=== PATIENT | male | born 1950 | race Caucasian/White ===

== ENCOUNTER → 2021-05-30 07:05 | Outpatient (CLI) | payer MEDICARE, OTHER, SELFPAY ==
[2021-05-30 18:53] LABS: SARS-CoV-2 RNA PCR Negative
== END ==
PROVIDERS: PCP Family Medicine; Visit Provider Family Medicine
DX: Z20.822 Contact with and (suspected) exposure to COVID-19 (principal); R05 Cough
CPT/HCPCS: C9803; U0003; U0005

== ENCOUNTER 2021-11-01 21:11 | Emergency (ER) | payer MEDICARE, OTHER, SELFPAY ==
[2021-11-01 21:29] VITALS: BP 170/106; PULSE 94; RESP 20; TEMP 37.2; O2SAT 94
[2021-11-01 23:41] VITALS: BP 185/99; PULSE 80; RESP 17; O2SAT 94
--- NOTE | 2021-11-01 23:50 | PC.NURSE ---
Pt states he no longer wishes to wait to be seen, states he has been here a couple hours and would be better off resting at home. Pt ambulated out in no distress w/ steady gait.
== END 2021-11-01 23:57 | disposition left against medical advice (07) ==
PROVIDERS: PCP Family Medicine
DX: Z53.21 Procedure and treatment not carried out due to patient leaving prior to being seen by health care provider (principal)
CPT/HCPCS: 99199

== ENCOUNTER → 2021-11-05 03:12 | Outpatient (CLI) | payer MEDICARE, OTHER, SELFPAY ==
[2021-11-06 14:36] LABS: SARS-CoV-2 RNA PCR Positive
== END ==
PROVIDERS: PCP Family Medicine; Visit Provider Family Medicine
DX: U07.1 COVID-19 (principal)
CPT/HCPCS: C9803; U0003; U0005

== ENCOUNTER 2022-05-27 13:55 | Emergency (ER) | payer MEDICARE, OTHER, SELFPAY ==
[2022-05-27 14:02] VITALS: BP 165/85; PULSE 61; RESP 18; TEMP 36.6; O2SAT 98
[2022-05-27 14:10] VITALS: BP 162/81
--- NOTE | 2022-05-27 14:22 | PC.NURSE ---
Pt no longer reports dizziness, has subsided since Wednesday.
[2022-05-27 14:32] VITALS: BP 158/88
--- NOTE | 2022-05-27 14:35 | PC.NURSE ---
Pt only wanted his blood pressure checked. otherwise well feeling, no complaints. Pt chose to leave prior to being evaluated by nurse practitioner.
--- NOTE | 2022-05-29 14:28 | ED.RECABL ---
HPI - Recheck/Abnormal Lab/Rx General Chief Complaint: Recheck/Abnormal Lab/Rx Stated Complaint: Blood Pressure Problem History of Present Illness HPI narrative: this pt left before seeing provider. he came for a BP check and was not aware he needed to see a provider. he left after speaking with nurse. Related Data Home Medications Medication Instructions Recorded Confirmed omeprazole 20 mg capsule,delayed See Rx Instructions .Route .COMPLEX 08/13/21 05/27/22 release Allergies Allergy/AdvReac Type Severity Reaction Status Date / Time codeine Allergy Unknown Unknown Verified 05/27/22 14:18 Sulfa (Sulfonamide Allergy Unknown Unknown Verified 05/27/22 14:18 Antibiotics) sulfamethizole Allergy Unknown Pt does Verified 05/27/22 14:18 not remember reaction Review of Systems Review of Systems: ROS not completed due to pt not seeing provider. [facility] Past Medical History Medical History (Updated 05/28/22 @ 00:00 by Dawood Ramirez) COPD (chronic obstructive pulmonary disease) Diabetes Hypertension Osteoarthritis of right knee Sleep apnea Surgical History Surgical History H/O knee surgery (~2002) H/O total cystectomy History of ankle surgery (~1979) History of ear surgery Hx of tonsillectomy Hx of total knee replacement (~2000) Family History Family History Mother Diabetes mellitus Family history of coronary artery disease Family history of malignant neoplasm of breast in first degree relative Family history of congestive heart failure Father Family history of lung cancer, Onset Age: 64 Social History Social History Smoking end date: 11/01/87 Alcohol intake: never Comments At time of signature, agree with nursing past medical, surgical, social and family history. There is no relevant family history pertinent to the presenting complaint. Exam Narrative: Exam not completed due to pt not seeing provider. Course Course Level of Care: Express Care Visit Vital Signs Vital signs: Vital Signs Temperature 36.6 C 05/27/22 14:02 Pulse Rate 61 05/27/22 14:02 Respiratory Rate 18 05/27/22 14:02 Blood Pressure 165/85 H 05/27/22 14:02 Pulse Oximetry 98 05/27/22 14:02 Oxygen Delivery Room Air 05/27/22 14:02 Temperature 36.6 C 05/27/22 14:02 Pulse Rate 61 05/27/22 14:02 Respiratory Rate 18 05/27/22 14:02 Blood Pressure 158/88 H 05/27/22 14:32 Pulse Oximetry 98 05/27/22 14:02 Oxygen Delivery Room Air 05/27/22 14:02 Reviewed MDM - Recheck/Abnormal Lab/Rx MDM Narrative Medical decision making narrative: pt left prior to seeing provider. he was here just for BP check. has appt with PCP in 2 days. Discharge Plan Discharge Clinical Impression: Hypertension, Well adult health check Patient Disposition: Left Without Being Seen Prescriptions: No Action omeprazole 20 mg capsule,delayed release(DR/EC) See Rx Instructions .ROUTE .COMPLEX Dose Instruction: TAKE ONE CAPSULE BY MOUTH TWICE A DAY Rx Instructions: TAKE ONE CAPSULE BY MOUTH ONCE A DAY Anoro Ellipta 62.5-25 mcg/actuation blister with device 1 inh inhalation DAILY Qty: 14 0RF irbesartan 300 mg tablet See Rx Instructions .ROUTE .COMPLEX Qty: 90 3RF Dose Instruction: TAKE ONE TABLET BY MOUTH ONCE DAILY Rx Instructions: TAKE ONE TABLET BY MOUTH ONCE DAILY trazodone 50 mg tablet See Rx Instructions .ROUTE .COMPLEX Qty: 270 0RF Dose Instruction: TAKE 3 TABLETS BY MOUTH ONCE DAILY Rx Instructions: TAKE 3 TABLETS BY MOUTH ONCE DAILY atorvastatin 20 mg tablet See Rx Instructions .ROUTE .COMPLEX Qty: 90 0RF Dose Instruction: TAKE 1 TABLET BY MOUTH EVERY DAY Rx Instructions: TAKE 1 TABLET BY MOUTH EVERY DAY m
== END 2022-05-27 14:35 | disposition left against medical advice (07) ==
PROVIDERS: Emergency Provider Nurse Practitioner Family
DX: Z53.21 Procedure and treatment not carried out due to patient leaving prior to being seen by health care provider (principal)
CPT/HCPCS: 99199

== ENCOUNTER 2022-07-01 15:27 | Emergency (ER) | payer MEDICARE, OTHER, SELFPAY ==
[2022-07-01 15:34] VITALS: BP 153/88; PULSE 66; RESP 18; TEMP 36.3; O2SAT 99
[2022-07-01 15:49] VITALS: BP 153/88; PULSE 66; RESP 18; TEMP 36.3; O2SAT 99
--- NOTE | 2022-07-01 15:59 | ED.HA ---
HPI - Headache General Chief Complaint: Headache Stated Complaint: headache (had numbness on face) Time Seen by Provider: 07/01/22 16:00 Source: patient and RN notes reviewed Mode of arrival: ambulatory Limitations: no limitations History of Present Illness HPI Narrative: 71-year-old male presented with history of DM, HTN, COPD for evaluation after an episode of neuro changes that occurred at 1330 today. Endorses vision changes that he described as eyes squiggly which has happened in the past, then upon standing he felt dizzy with a sudden onset of intense headache like 'a vice' and numbness to the left face and tongue. The episode lasted 5 minutes per pt. States he was able to walk and use his arms to call his daughter. Symptoms have resolved upon arrival. Denies chest pain, palpitations, shortness of breath, vomiting, fevers or chills. Related Data Allergies Allergy/AdvReac Type Severity Reaction Status Date / Time codeine Allergy Unknown Unknown Verified 07/01/22 15:37 Sulfa (Sulfonamide Allergy Unknown Unknown Verified 07/01/22 15:37 Antibiotics) sulfamethizole Allergy Unknown Pt does Verified 07/01/22 15:37 not remember reaction Review of Systems Review of Systems: CONSTITUTIONAL: Denies body aches, fever, chills, or sweats. EYES: Denies eye redness, or discharge. ENT: Denies rhinorrhea, congestion, sore throat, or otalgia. CARDIOVASCULAR: Denies chest pain, palpitations, or edema. RESPIRATORY: Denies cough or dyspnea. GASTROINTESTINAL: Denies abdominal pain, nausea, vomiting, or diarrhea. MUSCULOSKELETAL: Denies back pain, joint pain, or myalgia. NEUROLOGIC: Endorses headache, denies numbness, tingling, or weakness All systems reviewed & are unremarkable except as noted in HPI and below PMFSH Past Medical History Medical History (Updated 07/01/22 @ 17:53 by Jaspal Hickman III, DO) COPD (chronic obstructive pulmonary disease) Diabetes Hypertension Osteoarthritis of right knee Sleep apnea Surgical History Surgical History H/O knee surgery (~2002) H/O total cystectomy History of ankle surgery (~1979) History of ear surgery Hx of tonsillectomy Hx of total knee replacement (~2000) Family History Family History Mother Diabetes mellitus Family history of coronary artery disease Family history of malignant neoplasm of breast in first degree relative Family history of congestive heart failure Father Family history of lung cancer, Onset Age: 64 Social History Social History Smoking end date: 11/01/87 Alcohol intake: never Comments At time of signature, I have reviewed and agree with nursing past medical, surgical, social and family history unless otherwise noted. Please see nursing chart for further information. There is no relevant family history pertinent to the presenting complaint Exam Narrative: GENERAL: Well-appearing, well-nourished HEAD: Normocephalic, atraumatic. EYES: PERRLA, EOMI. CHEST: Clear to auscultation. HEART: Regular rate and rhythm. No murmur appreciated. SKIN: Warm, dry, no rash. Capillary refill normal. Normal skin turgor. NEURO:No focal deficits. Alert and oriented x3. EOMs intact without nystagmus. No facial droop/asymmetry noted bilaterally. Grimace intact. Intact sensation in face. Hearing intact bilaterally. Shoulder shrug intact. Strength 5/5 bilateral upper extremities. Ambulatory exam with a normal based, steady gait. PSYCH: Normal affect. Course Course Emergency Course: Patient is aware of diagnosis, understands and agrees to treatment plan. Portions of this record may have been created with voice recognition software Level of Care: Express Care Visit Vital Signs Vital signs: Vital Signs Temperature 97.3 F L 07/01/22 15:34 Pulse Rate
== END 2022-07-01 16:18 | disposition short-term general hospital (02) ==
PROVIDERS: Emergency Provider Nurse Practitioner Family; PCP Emergency Medicine
DX: R51.9 Headache, unspecified (principal); Z87.891 Personal history of nicotine dependence; J44.9 Chronic obstructive pulmonary disease, unspecified; E11.9 Type 2 diabetes mellitus without complications; I10 Essential (primary) hypertension; G47.30 Sleep apnea, unspecified; M17.11 Unilateral primary osteoarthritis, right knee
CPT/HCPCS: 99213; G0463

== ENCOUNTER 2022-07-01 16:46 | Emergency (ER) | payer MEDICARE, OTHER, SELFPAY ==
--- NOTE | ~2022-07-01 | CT_ITS ---
EXAMINATION: CT brain wo con DATE: 07/01/2022 17:11 INDICATION: Episode of facial numbness and blurred vision TECHNIQUE: Computed tomography (CT) of the head was performed without intravenous contrast. Sagittal and coronal reconstructions were performed. The mA was adjusted according to patient size. Iterative reconstruction technique was employed. The dose-length product was 605.33 mGy-cm. COMPARISON: None FINDINGS: No acute intracranial hemorrhage, acute infarction or abnormal extra axial fluid collection. Ventricl es are normal and symmetric. No mass/mass effect. Postoperative change of prior right mastoidectomy. The orbits and left mastoid air cells are normal. Mild mucosal thickening the bilateral ethmoid sinus es. IMPRESSION: 1. No acute intracranial process. Reviewed, dictated and finalized at location A.
--- NOTE | ~2022-07-01 | XR_ITS ---
XR chest 1V portable DATE: 07/01/2022 17:06 INDICATION: Episode of facial numbness, blurred vision TECHNIQUE: Portable AP chest on 07/01/2022 at 1703 hours COMPARISON: 11/19/2018 CT chest high resolution scan 08/16/2018 PA and lateral chest FINDINGS: Prominent chronic bulla is noted in the superolateral right lung. Mild chronic interstitial lung changes. Chronic elevation right diaphragm. Cardiac megaly. Aortic unfolding. No pulmonary consolidation, pleural effusion or pulmonary vascular congestion or pneumothorax is dete cted. Osteopenia. Degenerative spurring and mild scoliosis of the thoracic spine. IMPRESSION: No acute finding or significant change since 08/16/2018 Reviewed, dictated and finalized at location B.
[2022-07-01 16:48] VITALS: BP 176/89; PULSE 51; RESP 18; TEMP 36.4; O2SAT 96
--- NOTE | 2022-07-01 16:52 | ECG_ITS ---
Measurements Intervals [place] Rate: 52 P: 29 IN: 189 QRS: -14 QRSD: 113 T: 38 QT: 461 QTc: 430 Interpretive Statements SINUS BRADYCARDIA MODERATE INTRAVENTRICULAR CONDUCTION DELAY [110+ ms QRS DURATION] VOLTAGE CRITERIA FOR LVH [MEETS CRITERIA IN ONE OF: R(aVL), S(V1), R(V5), R(V5/V6)+S(V1)] NONSPECIFIC T-WAVE ABNORMALITY NO PREVIOUS ECG AVAILABLE FOR COMPARISON Electronically Signed On 07-01-2022 20:03:12 CDT by Brielle Babin M.D.
--- NOTE | 2022-07-01 17:45 | ED.NEUROSD ---
HPI - Neuro Symptoms/Deficit General Chief Complaint: Neuro Symptoms/Deficit Stated Complaint: numbness left side of face Time Seen by Provider: 07/01/22 17:33 History of Present Illness HPI Narrative: Pt had some visula floaters in left eye earlier this afternoon, then patient developed some numbness to the left side of his face and tongue that lasted about five minutes and resolved. Pt states a bit later he developed a dull GUAN. Pt has no history of GUAN but does admit to being under a lot of stress lately. Pt says he feels pretty good right now. Related Data Allergies Allergy/AdvReac Type Severity Reaction Status Date / Time codeine Allergy Unknown Unknown Verified 07/01/22 15:37 Sulfa (Sulfonamide Allergy Unknown Unknown Verified 07/01/22 15:37 Antibiotics) sulfamethizole Allergy Unknown Pt does Verified 07/01/22 15:37 not remember reaction Review of Systems Review of Systems: All systems reviewed & are unremarkable except as noted in HPI and below PMFSH Past Medical History Medical History (Updated 07/01/22 @ 17:53 by Jaspal Hickman III, DO) COPD (chronic obstructive pulmonary disease) Diabetes Hypertension Osteoarthritis of right knee Sleep apnea Surgical History Surgical History H/O knee surgery (~2002) H/O total cystectomy History of ankle surgery (~1979) History of ear surgery Hx of tonsillectomy Hx of total knee replacement (~2000) Family History Family History Mother Diabetes mellitus Family history of coronary artery disease Family history of malignant neoplasm of breast in first degree relative Family history of congestive heart failure Father Family history of lung cancer, Onset Age: 64 Social History Social History Smoking end date: 11/01/87 Alcohol intake: never Exam Const: General: healthy appearing and no acute distress Nutritional Appearance: well nourished Orientation/consciousness: patient oriented x3 Limitations: no limitations HENMT: Head: normal to inspection Eyes: Conjunctivae: conjunctivae normal Pupils: Equal, round and reactive pupils present EOM: EOMs intact bilaterally Direct Ophthalmoscopy: no photophobia Neck: Neck: normal visual inspection Resp: Effort & Inspection: normal respiratory effort Auscultation: clear to auscultation bilaterally Cardio: Rate: regular rate Rhythm: regular rhythm GI: GI Palp: Yes Soft to palpation Auscultation: normal bowel sounds Skin: General skin exam: normal color Rashes: no rashes Neuro: General: patient oriented x3 Cranial nerves: Yes Nystagmus not present Speech: normal speech Extrem: General: normal to inspection and no clubbing, cyanosis or edema Psych: Mental Status: mental status grossly normal Affect: normal affect Attitude: cooperative Course Vital Signs Vital signs: Vital Signs Temperature 97.6 F 07/01/22 16:48 Pulse Rate 51 L 07/01/22 16:48 Respiratory Rate 18 07/01/22 16:48 Blood Pressure 176/89 H 07/01/22 16:48 Pulse Oximetry 96 07/01/22 16:48 Oxygen Delivery Room Air 07/01/22 16:48 Temperature 97.6 F 07/01/22 16:48 Pulse Rate 52 L 07/01/22 18:00 Respiratory Rate 16 07/01/22 18:00 Blood Pressure 142/78 H 07/01/22 18:00 Pulse Oximetry 96 07/01/22 18:00 Oxygen Delivery Room Air 07/01/22 16:48 MDM - Neuro Symptoms/Deficit ECG Data EKG #1: ECG completion date: 07/01/22 ECG completion time: 17:52 Interpretation: lvh EKG Interpretation: bradycardia (rate 52), sinus rhythm and non-specific ST changes Discharge Plan Discharge Clinical Impression: Migraine headache with aura Patient Disposition: Home, Self-Care Condition: Improved Instructions: Antibiotic Form, Migraine Headache (ED) Prescriptions: No Actio
[2022-07-01 18:00] VITALS: BP 142/78; PULSE 52; RESP 16; O2SAT 96
== END 2022-07-01 18:05 | disposition home or self-care (01) ==
LOC: ANHED 17:58
PROVIDERS: Emergency Provider Emergency Medicine; PCP Emergency Medicine
DX: G43.109 Migraine with aura, not intractable, without status migrainosus (principal); J44.9 Chronic obstructive pulmonary disease, unspecified; E11.9 Type 2 diabetes mellitus without complications; I10 Essential (primary) hypertension; M17.11 Unilateral primary osteoarthritis, right knee; G47.30 Sleep apnea, unspecified; Z79.84 Long term (current) use of oral hypoglycemic drugs; R00.1 Bradycardia, unspecified; I45.9 Conduction disorder, unspecified; R94.31 Abnormal electrocardiogram [ECG] [EKG]; Z96.659 Presence of unspecified artificial knee joint
CPT/HCPCS: 70450; 71045; 93005; 99284

== ENCOUNTER 2022-09-08 01:09 | Day surgery (SDC) | payer MEDICARE, OTHER, SELFPAY ==
[2022-08-31 11:19] VITALS: BMI 36.5
[2022-09-08 07:30] VITALS: BP 186/100; PULSE 67; RESP 20; TEMP 36.2; O2SAT 97; BMI 35.5
[2022-09-08] MEDS: LACTATED RINGERS 1,000 ML 150 ML IV CONT (07:44)
[2022-09-08 07:53] LABS: Glucose Point of Care 123 mg/dl (65-105)
--- NOTE | 2022-09-08 07:55 | PM.HPGS ---
History of Present Illness History of Present Illness Consent: Risks, benefits, and alternatives have been discussed and questions answered. Patient agrees to proceed with procedure. Chief complaint: neoplasm screening Narrative: Tono Coreas is a 71 year old male Presents for screening colonoscopy. Patient's current weight appetite and bowel movements are normal. Patient denies abdominal pain. He has had no bleeding. Family history is noncontributory. Patient's last colonoscopy 2007 was unremarkable. Patient presents today for screening exam. Review of Systems Review of Systems: Review of systems noncontributory. [facility] Past Medical History Medical History (Updated 07/21/22 @ 14:35 by Bennie Ramos MD) COPD (chronic obstructive pulmonary disease) Diabetes Hypertension Osteoarthritis of right knee Sleep apnea Surgical History Surgical History H/O knee surgery (~2002) H/O total cystectomy History of ankle surgery (~1979) History of ear surgery Hx of tonsillectomy Hx of total knee replacement (~2000) Family History Family History Mother Diabetes mellitus Family history of coronary artery disease Family history of malignant neoplasm of breast in first degree relative Family history of congestive heart failure Father Family history of lung cancer, Onset Age: 64 Social History Social History (Updated 07/21/22 @ 13:07 by Kaela Garcia) Social History: Caffeine-soda Smoking packs per day: 3 Smoking cigarettes per day: 60.0 Years smoked: 20 Smoking pack-years: 60.00 Smoking status: Former smoker Tobacco type: cigarettes Smoking end date: 11/01/87 Additional smoking assessment comments: DID NOT SMOKE 3 PKS THE ENTIRE TIME Alcohol intake: never Substance use: never Substance use type: does not use Living arrangements: with family Spiritual care concerns: No Meds Home Medications and Allergies Home Medications Medication Instructions Recorded Confirmed Type omeprazole 40 mg capsule,delayed 40 mg PO DAILY #90 caps 06/04/22 08/31/22 Rx release spironolactone 25 mg tablet 25 mg PO DAILY 07/21/22 08/31/22 History tamsulosin 0.4 mg capsule 0.4 mg PO QHS #30 caps 07/21/22 08/31/22 Rx sodium,potassium,mag sulfates 17.5 See Rx Instructions PO .COMPLEX 07/28/22 08/31/22 Rx gram-3.13 gram-1.6 gram oral soln #354 mL (Suprep Bowel Prep Kit) aspirin 81 mg tablet 81 mg PO DAILY 08/31/22 08/31/22 History atorvastatin 20 mg tablet 20 mg PO DAILY 08/31/22 08/31/22 History irbesartan 300 mg tablet 300 mg PO DAILY 08/31/22 08/31/22 History metformin 500 mg tablet,extended 500 mg PO DAILY 08/31/22 08/31/22 History release 24 hr metoprolol succinate 25 mg 25 mg PO DAILY 08/31/22 08/31/22 History tablet,extended release 24 hr trazodone 50 mg tablet 150 mg PO HS 08/31/22 08/31/22 History umeclidinium 62.5 mcg-vilanterol 1 inh inhalation DAILY PRN 08/31/22 08/31/22 History 25 mcg/actuation powdr for Shortness Of Breath Or Wheezing inhalation (Anoro Ellipta) Allergies Allergy/AdvReac Type Severity Reaction Status Date / Time Sulfa (Sulfonamide Allergy Unknown Unknown Verified 09/08/22 07:29 Antibiotics) codeine AdvReac Intermediate Gastrointestinal Verified 09/08/22 07:29 Upset Vital Signs Vital Signs - 24 hr 09/08/22 07:30 Temperature 97.2 F L Pulse Rate 67 Respiratory Rate 20 Blood Pressure 186/100 H Pulse Oximetry 97 Oxygen Delivery Room Air Exam Narrative: Physical exam reveals patient to be alert. Vital signs stable. HEENT exam is unremarkable. Patient is anicteric. Lungs are clear to auscultation and percussion. Heart is without murmur or extra sounds. Abdomen bowel sounds are present soft nontender with no organomegaly. Digital external rectal exam is normal. Assessment and Plan Assessment and plan
--- NOTE | 2022-09-08 08:16 | WPDANESEPPF ---
Anes - Initial Pre Proc Eval Procedure: Operation Date: 09/08/22 08:30 Proposed Procedures p Screening Colonoscopy - Hiro Garcia MD Date/Time: 09/08/22 08:16 Surgeon: Hiro Garcia MD Pre Op Diagnosis: neoplasm screening Patient Data Age: 71 Gender: M Height: 1.73 m Weight: 106 kg Last Vital Signs Temp 36.2 C L 09/08/22 07:30 Pulse 67 09/08/22 07:30 Resp 20 09/08/22 07:30 BP 186/100 H 09/08/22 07:30 Pulse Ox 97 09/08/22 07:30 O2 Del Method Room Air 09/08/22 07:30 Allergies Allergy/AdvReac Type Severity Reaction Status Date / Time Sulfa (Sulfonamide Allergy Unknown Unknown Verified 09/08/22 07:29 Antibiotics) codeine AdvReac Intermediate Gastrointestinal Verified 09/08/22 07:29 Upset Home Medications Medication Instructions Recorded Confirmed Type omeprazole 40 mg capsule,delayed 40 mg PO DAILY #90 caps 06/04/22 08/31/22 Rx release spironolactone 25 mg tablet 25 mg PO DAILY 07/21/22 08/31/22 History tamsulosin 0.4 mg capsule 0.4 mg PO QHS #30 caps 07/21/22 08/31/22 Rx sodium,potassium,mag sulfates 17.5 See Rx Instructions PO .COMPLEX 07/28/22 08/31/22 Rx gram-3.13 gram-1.6 gram oral soln #354 mL (Suprep Bowel Prep Kit) aspirin 81 mg tablet 81 mg PO DAILY 08/31/22 08/31/22 History atorvastatin 20 mg tablet 20 mg PO DAILY 08/31/22 08/31/22 History irbesartan 300 mg tablet 300 mg PO DAILY 08/31/22 08/31/22 History metformin 500 mg tablet,extended 500 mg PO DAILY 08/31/22 08/31/22 History release 24 hr metoprolol succinate 25 mg 25 mg PO DAILY 08/31/22 08/31/22 History tablet,extended release 24 hr trazodone 50 mg tablet 150 mg PO HS 08/31/22 08/31/22 History umeclidinium 62.5 mcg-vilanterol 1 inh inhalation DAILY PRN 10/31/22 10/31/22 History 25 mcg/actuation powdr for Shortness Of Breath Or Wheezing inhalation (Anoro Ellipta) Laboratory Tests 09/08/22 07:41 POC Capillary Glucose 123 mg/dl H mg/dl (65-105) Patient hx anesthesia problems: other (early awakening) Family hx anesthesia problems: none Results Review: All pre-operative results and documents have been reviewed as part of the pre-operative evaluation. [facility] Past Medical History Medical History COPD (chronic obstructive pulmonary disease) Diabetes Hypertension Osteoarthritis of right knee Sleep apnea Surgical History Surgical History H/O knee surgery (~2002) H/O total cystectomy History of ankle surgery (~1979) History of ear surgery Hx of tonsillectomy Hx of total knee replacement (~2000) Family History Family History Mother Diabetes mellitus Family history of coronary artery disease Family history of malignant neoplasm of breast in first degree relative Family history of congestive heart failure Father Family history of lung cancer, Onset Age: 64 Social History Social History Social History: Caffeine-soda Smoking packs per day: 3 Smoking cigarettes per day: 60.0 Years smoked: 20 Smoking pack-years: 60.00 Smoking status: Former smoker Tobacco type: cigarettes Smoking end date: 11/01/87 Additional smoking assessment comments: DID NOT SMOKE 3 PKS THE ENTIRE TIME Alcohol intake: never Substance use: never Substance use type: does not use Living arrangements: with family Spiritual care concerns: No Anes - Eval Final PreProcedure Day of Procedure 09/08/22 08:16 Patient weight: obese Heart: regular rate and rhythm Lungs: decreased breath sounds Airway: Mallampati scale class II Neurological: alert and oriented Last oral intake: >/= 8 hours ASA classification: III Emergent: no Anesthetic plan: proceed Anesthesia type and monitoring: general GIVS and standard monitoring
[2022-09-08] MEDS: SIMETHICONE ORAL SUSPENSION 20 MG/0.3 ML 30 ML BOTTLE 0.6 ML IRRIGATION (08:39)
[2022-09-08 08:49] VITALS: BP 129/75; PULSE 59; RESP 19; O2SAT 99
[2022-09-08 08:59] VITALS: BP 153/78; PULSE 61; RESP 22; O2SAT 97
[2022-09-08 09:09] VITALS: BP 167/92; PULSE 55; RESP 26; O2SAT 99
== END 2022-09-08 09:19 | disposition home or self-care (01) ==
PROVIDERS: PCP Emergency Medicine; Visit Provider Internal Medicine Gastroenterology
PROC: 0DJD8ZZ Inspection of Lower Intestinal Tract, Via Natural or Artificial Opening Endoscopic (ICD-10-PCS; CPT 45378; principal; 2022-09-08 08:30)
DX: Z12.11 Encounter for screening for malignant neoplasm of colon (principal); D12.2 Benign neoplasm of ascending colon; K64.8 Other hemorrhoids; K57.30 Diverticulosis of large intestine without perforation or abscess without bleeding; J44.9 Chronic obstructive pulmonary disease, unspecified; E11.9 Type 2 diabetes mellitus without complications; I10 Essential (primary) hypertension; G47.30 Sleep apnea, unspecified; Z87.891 Personal history of nicotine dependence; E66.9 Obesity, unspecified; Z68.35 Body mass index [BMI] 35.0-35.9, adult; Z79.82 Long term (current) use of aspirin; Z79.84 Long term (current) use of oral hypoglycemic drugs; Z79.51 Long term (current) use of inhaled steroids
CPT/HCPCS: 45385; 82948; 88305; J2704; J7120

== ENCOUNTER → 2022-10-01 10:45 | Outpatient (CLI) | payer MEDICARE, OTHER, SELFPAY ==
--- NOTE | ~2022-10-01 | XR_ITS ---
XR chest 2V DATE: 10/01/2022 10:55 INDICATION: Cough TECHNIQUE: 2 views COMPARISON: 07/01/2022 portable AP chest FINDINGS: There is prominent elevation of the right leaf of the diaphragm anteriorly likely due to ev entration. Patchy mild infiltrate or atelectasis is suggested in the right mid and lower lung zones. The left gisel ng appears essentially clear. No pleural effusion. Pulmonary vascularity is within normal limits. No pneumothorax. Diffuse osteopenia. Thoracic dextroscoliosis and degenerative spurring. IMPRESSION: Cardiomegaly Mild patchy infiltrate in the right mid and lower lung zones Osteopenia Reviewed, dictated and finalized at location B. L DRAWER
== END ==
PROVIDERS: PCP Emergency Medicine; Visit Provider Emergency Medicine
DX: R05.9 Cough, unspecified (principal); I51.7 Cardiomegaly; R91.8 Other nonspecific abnormal finding of lung field; M85.88 Other specified disorders of bone density and structure, other site
CPT/HCPCS: 71046

== ENCOUNTER 2022-10-05 13:52 | Outpatient (CLI) | payer MEDICARE, OTHER, SELFPAY ==
--- NOTE | ~2022-10-05 | CT_ITS ---
EXAMINATION: CT diagnostic chest wo con DATE: 10/05/2022 14:11 INDICATION: Chronic cough. Fluid on lungs 5 days ago TECHNIQUE: Computed tomography (CT) of the chest was performed without intravenous contrast. Automate d exposure control and iterative reconstruction technique were employed. Exam dose: 401.54 mGy-cm to brian exam DLP. COMPARISON: 10/01/2022 2 view chest 11/09/2018 CT chest high resolution scan FINDINGS: There are numerous mediastinal lymph nodes which are mildly increased in size compared to ; for example a left superior mediastinal lymph node currently measures 7.9 x 10.9 mm, compare d to 6.4 x 9.3 mm on 11/19/2018. A lower right paratracheal lymph node currently measures 12.4 x 18 mm compared to 11.2 x 18.9 mm on 11/09/2018. There are some calcified bilateral hilar and subcarinal nodes. Stable prominent pneumatocele in the lateral right apical area and stable bilateral chronic periphera l interlobular septal soft tissue thickening and mild honeycombing or bronchiectasis. Cardiomegaly. Coronary artery calcifications. No thoracic aortic aneurysm. There is aortic calcificat ion. No pericardial or pleural effusion. Normal morphology of the adrenal glands. Prominent degenerative disc disease of the lower cervical spine. Prominent degenerative spurring of t he thoracic and upper lumbar spine. No suspicious osteolytic or osteoblastic lesions are noted. IMPRESSION: Chronic interstitial fibrotic changes involving primarily the peripheral lungs, with chr onic stable bilateral right upper lobe prominent pneumatocele Persistent scattered mediastinal lymph nodes, minimally increased in prominence since 11/09/2018 Cardiomegaly Reviewed, dictated and finalized at Location A. Reviewed, dictated and finalized at location B. 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
== END 2022-10-05 13:53 | disposition home or self-care (01) ==
PROVIDERS: PCP Emergency Medicine; Visit Provider Emergency Medicine
DX: J84.9 Interstitial pulmonary disease, unspecified (principal); J84.10 Pulmonary fibrosis, unspecified; J44.9 Chronic obstructive pulmonary disease, unspecified; I51.7 Cardiomegaly
CPT/HCPCS: 71250

== ENCOUNTER 2022-11-17 11:58 | Emergency (ER) | payer MEDICARE, OTHER, SELFPAY ==
--- NOTE | ~2022-11-17 | CT_ITS ---
EXAMINATION: CT chest abdomen pelvis wo con DATE: 11/17/2022 12:50 INDICATION: Sided rib pain and right upper quadrant tenderness post fall TECHNIQUE: Computed tomography (CT) of the chest, abdomen, and pelvis was performed without intraveno us contrast. Automated exposure control and iterative reconstruction technique were employed. The dos e-length product was 1715.28 mGy-cm. COMPARISON: Chest CT dated 10/05/2022 and 11/09/2018 FINDINGS: CHEST CT: Mild emphysema with prominent bulla along the anterolateral right upper lobe. Is also unchanged mild irregular septal line thickening with subpleural honeycombing with peripheral and lower lung predomin ance consistent with usual interstitial pneumonia (UIP) pattern chronic interstitial lung disease. A few bilateral small calcified pulmonary nodules along with calcified left hilar and mediastinal lymph nodes consistent with old granulomatous disease. 6 mm likely benign noncalcified nodule possibly an intrafissural lymph node along the right minor fissure which is unchanged since 2019. No pneumonia o r pulmonary edema. Tiny right pleural effusion. Mild cardiomegaly. Atherosclerotic coronary artery ca lcific lesion. No pericardial effusion. Chronic mild likely reactive mediastinal lymphadenopathy with out significant interval change since 11/09/2018. Mild thoracic spondylosis. Chronic T7 compression fra cture. No acute osseous abnormality. ABDOMEN/PELVIS CT: Liver, gallbladder, pancreas, bilateral adrenal glands and kidneys are normal. A few splenic calcific lesions consistent with old granulomatous disease. There is mild to moderate colonic diverticulosis with a sigmoid predominance. There is no adjacent inflammatory change to suggest diverticulitis. Smal l bowel and appendix are normal. Small fat-containing umbilical hernia. Bladder is normal. Prostatome gela. Minimal ascites in the deep pelvis. No abscess or free intraperitoneal gas. No pathologically e nlarged abdominal or pelvic lymphadenopathy. Mild lumbar spondylosis. Mild subcutaneous edema potenti ally related to contusion along the lateral right abdominal and lower thoracic wall. IMPRESSION: 1. Mild subcutaneous edema along the right lateral abdominal and inferior chest wall likely postsurgi daphne contusion. No fracture or acute intrathoracic, abdominal or pelvic process. 2. Stable appearance of emphysema and UIP pattern chronic interstitial lung disease. 3. Mild cardiomegaly. 4. Stable appearance of chronic mild mediastinal lymphadenopathy which is likely reactive. 5. Diverticulosis. 6. Prostatomegaly. Reviewed, dictated and finalized at location A. ER EXPERT IMPRESSION: 1. Mild subcutaneous edema along the right lateral abdominal and inferior chest wall likely postsurgical contusion. No fracture or acute intrathoracic, abdomi nal or pelvic process. 2. Stable appearance of emphysema and UIP pattern chronic interstitial lung dis ease. 3. Mild cardiomegaly. 4. Stable appearance of chronic mild mediastinal lymphadenopathy which is likel y reactive. 5. Diverticulosis. 6. Prostatomegaly.
[2022-11-17 12:10] VITALS: BP 155/95; PULSE 86; RESP 20; TEMP 36.2; O2SAT 97
--- NOTE | 2022-11-17 12:38 | ED.FALL ---
HPI - Fall General Chief Complaint: Fall Stated Complaint: fall-right rib pain/ back pain Time Seen by Provider: 11/17/22 12:19 History of Present Illness HPI Narrative: Patient is a 72-year-old male with a history of hypertension presenting with chest and abdominal pain. Patient states that he tripped while walking down an embankment approximately 5 to 6 days ago. States that he landed on his right side and tumbled down the hill. Did not strike his head or lose consciousness. States he was able to get up and walk back up the embankment following the fall. Since that time he has had persistent right lower chest pain and right upper quadrant pain. States that the pain was so severe last night that he was unable to sleep in bed. States that if he sits in certain positions the pain goes away. Reports chronic shortness of breath and cough. Denies headache, numbness or weakness, vomiting, neck pain, back pain. Related Data Home Medications Medication Instructions Recorded Confirmed aspirin 81 mg tablet 81 mg PO DAILY 08/31/22 08/31/22 atorvastatin 20 mg tablet 20 mg PO DAILY 08/31/22 08/31/22 irbesartan 300 mg tablet 300 mg PO DAILY 08/31/22 08/31/22 Allergies Allergy/AdvReac Type Severity Reaction Status Date / Time Sulfa (Sulfonamide Allergy Unknown Unknown Verified 11/17/22 12:17 Antibiotics) codeine AdvReac Intermediate Gastrointestinal Verified 11/17/22 12:17 Upset Review of Systems Review of Systems: All systems reviewed & are unremarkable except as noted in HPI and below PMFSH Past Medical History Medical History (Updated 11/17/22 @ 13:30 by Daylin Urbina MD) COPD (chronic obstructive pulmonary disease) Diabetes Hypertension Osteoarthritis of right knee Sleep apnea Surgical History Surgical History H/O knee surgery (~2002) H/O total cystectomy History of ankle surgery (~1979) History of ear surgery Hx of tonsillectomy Hx of total knee replacement (~2000) Family History Family History Mother Diabetes mellitus Family history of coronary artery disease Family history of malignant neoplasm of breast in first degree relative Family history of congestive heart failure Father Family history of lung cancer, Onset Age: 64 Social History Social History Social History: Caffeine-soda Smoking packs per day: 3 Smoking cigarettes per day: 60.0 Years smoked: 20 Smoking pack-years: 60.00 Smoking status: Former smoker Tobacco type: cigarettes Smoking end date: 11/01/87 Additional smoking assessment comments: DID NOT SMOKE 3 PKS THE ENTIRE TIME Alcohol intake: never Substance use: never Substance use type: does not use Lack of Transportation: No Lack of Food: Never True Current Housing: I Have Housing Concerned About Future Housing: No Difficulty Paying Gas/Electric Bills: No Difficulty Paying for Meds: No Currently Unemployed: No Education: Bachelor's Degree Difficulty w/ Childcare or Family Care: No Spiritual care concerns: No Exam Narrative: GENERAL: Well-appearing, well-nourished, and in no acute distress. HEAD: Normocephalic, atraumatic. EYES: PERRLA and EOMI. ENT: Nares clear, no rhinorrhea or epistaxis. Mucous membranes moist. NECK: Supple. CHEST: Clear to auscultation. No respiratory distress. Focal tenderness over anterior lower right ribs HEART: Regular rate and rhythm. No murmur heard. Normal peripheral pulses. ABDOMEN: Soft, Tender in epigastrium/RUQ, nondistended EXTREMITIES: Normal range of motion. No edema. SKIN: Warm, dry, no rash. NEURO: No focal deficits. Alert and oriented x3. PSYCH: Normal mood and affect. Course Vital Signs Vital signs: Vital Signs Temperature 97.2 F L 11/17/22 12:10 Pulse Rate 86 11/17/22 12:10 Respirato
== END 2022-11-17 13:44 | disposition home or self-care (01) ==
PROVIDERS: Emergency Provider Emergency Medicine; PCP Emergency Medicine
DX: S20.211A Contusion of right front wall of thorax, initial encounter (principal); I10 Essential (primary) hypertension; Z79.82 Long term (current) use of aspirin; J44.9 Chronic obstructive pulmonary disease, unspecified; E11.9 Type 2 diabetes mellitus without complications; M17.11 Unilateral primary osteoarthritis, right knee; G47.30 Sleep apnea, unspecified; Z96.659 Presence of unspecified artificial knee joint; Z87.891 Personal history of nicotine dependence; W17.81XA Fall down embankment (hill), initial encounter; Z79.84 Long term (current) use of oral hypoglycemic drugs
CPT/HCPCS: 71250; 74176; 99284

== ENCOUNTER 2023-01-21 12:56 | Outpatient (CLI) | payer MEDICARE, OTHER, SELFPAY ==
--- NOTE | ~2023-01-21 | CT_ITS ---
EXAMINATION: CTA BRAIN/CAROTID DATE: 01/21/2023 13:31 INDICATION: Angina ischemic episode/stroke. Complex migraines with headache and vision abnormality. TECHNIQUE: Computed tomographic angiography (CTA) of the head and neck was performed with 100 mL Omni paque-350 intravenous contrast. Multiplanar reconstructions and maximum intensity projection 3D-recon structions of the carotid arteries and of the intracranial arteries were created by the technologist on a separate workstation. Precontrast CT of the head was also obtained. Automated exposure control and iterative reconstruction technique were employed.The dose-length product was 1654.49 mGy-cm. COMPARISON: Chest CT dated 11/09/[address] dated 07/01/2022 FINDINGS: Carotid arteries: The visualized thoracic aorta is normal in caliber with small amount of nonenhancing within a signifi cant atherosclerotic plaque at the arch and no dissection. There appears be a high-grade, >70% stenos is at the origin of the right subclavian artery resulting from a combination of small amount of ather osclerotic plaque and a kink with nearly 180 degree abrupt change in course of the vessel. There is 4 0% stenosis of the right carotid bulb relative to normal distal artery lumen diameter (NASCET criteri a). There is atherosclerotic plaque with 0% stenosis of the left carotid bulb relative to normal dist al artery lumen diameter. No interval change in multiple mildly enlarged mediastinal lymph nodes whic h can be seen dating back to CT dated 11/10/2018. Scattered mild emphysema with stable appearance of b ullous change along the anterolateral right upper lobe. There are diffuse groundglass opacities throu ghout both lungs likely related to expiratory phase of imaging. There is AP flattening of the trachea and mainstem bronchi consistent with tracheobronchomalacia. Calcified subcarinal lymph nodes consist ent with old granulomatous disease. Mild cervicothoracic levocurvature with moderate spondylosis. Head: No acute intracranial hemorrhage, acute infarction or abnormal extra axial fluid collection. Symmetri c prominence of the sulci consistent with mild age-appropriate diffuse cerebral volume loss. Ventric les are normal and symmetric. No mass/mass effect. Status post right mastectomy. Mild mucosal thicken ing in the bilateral frontal and ethmoid sinuses. The orbits are normal. No abnormally enhancing brai n lesions. Intracranial arteries There is no hemodynamically significant stenosis in the vertebral, basilar and internal carotid arter ies. Left vertebral artery is dominant. There are no aneurysms identified. Both A1 and left P1 segme nts are patent. Right posterior cerebral artery supplied via a patent right posterior communicating a rtery. Cerebral arterial arborization appears symmetric. IMPRESSION: 1. 40% stenosis of the right carotid bulb relative to normal distal artery lumen diameter (NASCET cri teria). 2. Small amount of atherosclerotic plaque with 0% stenosis of the left carotid bulb relative to dennis l distal artery lumen diameter. 3. >70% stenosis near the origin of the right subclavian artery resulting from combination of small a mount of atherosclerotic plaque and sharp kink in the course of the vessel. This could predispose tow ards subclavian steal syndrome. 4. Normal aging brain. No acute intracranial process. Reviewed, dictated and finalized at location A. IMPRESSION: 1. 40% stenosis of the right carotid bulb relative to normal distal artery lume n diameter (NASCET criteria). 2. Small amount of atherosclerotic plaque with 0% stenosis of the left carotid bulb relative to normal distal artery lumen diameter. 3. >70% stenosis near the origin of the right subclavian artery resulting from combination of small amount of
[2023-01-21 13:22] LABS: Estimated Glomerular Filt Rate > 60
== END 2023-01-21 12:57 | disposition home or self-care (01) ==
PROVIDERS: PCP Emergency Medicine; Visit Provider Student in an Organized Health Care Education/Training Program
DX: G45.9 Transient cerebral ischemic attack, unspecified (principal); I65.21 Occlusion and stenosis of right carotid artery
CPT/HCPCS: 70496; 70498; Q9967

== ENCOUNTER 2023-02-05 15:10 | Outpatient (CLI) | payer MEDICARE, OTHER, SELFPAY ==
[2023-02-08 07:50] LABS: Kit Draw Collected
== END 2023-02-05 15:11 | disposition home or self-care (01) ==
LOC: ANHGOSHLAB 15:12
PROVIDERS: PCP Emergency Medicine; Visit Provider Nurse Practitioner Family
DX: R59.0 Localized enlarged lymph nodes (principal); E11.65 Type 2 diabetes mellitus with hyperglycemia
CPT/HCPCS: 36415

== ENCOUNTER 2023-02-20 10:45 | Outpatient (CLI) | payer MEDICARE, OTHER, SELFPAY ==
--- NOTE | ~2023-02-20 | MR_ITS ---
EXAMINATION: MR brain/brain stem wo/w con DATE: 02/20/2023 12:14 INDICATION: Transient ischemic attack. TECHNIQUE: Magnetic resonance imaging (MRI) of the brain and brainstem was performed without and with 20 mL MultiHance intravenous contrast. COMPARISON: Head CT 01/21/2023 FINDINGS: There is a small old infarct in right cerebellum. There are scattered areas of nonspecific increased T2-weighted signal intensity in the cerebral white matter, which is within normal limits fo r the patient's age. There is no intracranial hemorrhage, acute infarction, or abnormal intracranial mass lesion. The ventricles are normal in size. The paranasal sinuses are clear. The mastoid air cell s are normal. The orbits are normal. IMPRESSION: 1. Small old infarct in right cerebellum. Reviewed, dictated and finalized at location A.
== END 2023-02-20 10:46 | disposition home or self-care (01) ==
PROVIDERS: PCP Emergency Medicine; Visit Provider Student in an Organized Health Care Education/Training Program
DX: G45.9 Transient cerebral ischemic attack, unspecified (principal); R93.0 Abnormal findings on diagnostic imaging of skull and head, not elsewhere classified
CPT/HCPCS: 70553; A9577

== ENCOUNTER 2023-03-03 09:35 | Outpatient (CLI) | payer MEDICARE, OTHER, SELFPAY ==
--- NOTE | 2023-03-22 11:15 | WPDSLEEPSTUD ---
Sleep Study Date of Study: 03/03/23 Ordering Provider: Austen Marley MD Interpreting Physician: Bessy Norman MD Sleep Study Type: Split Polysomnogram Height: 1.73 m Weight: 104.326 kg Body Mass Index: 34.9 Neck Circumference (inches): 18 Dresher: 3 Reason for Sleep Study Patient has history of DIONNE intolerant to CPAP. Has been off CPAP for 1.5 years. Sleep History Tono Coreas is a 72-year-old male who presents for a split night study for re-evaluation of obstructive sleep apnea. He was prescribed APAP [id number] in the past and was unable to tolerate the mask. He has been off CPAP for 1.5 years. He rarely awakens from sleep short of breath. He never awakens at night with heartburn, belching or cough. He frequently snores and snores loudly enough that others complain. He occasionally has trouble sleeping when he has a cold. He does not wake up gasping for breath during the night. He frequently has breathing problems at night. He never sweats excessively at night. He occasionally notices his heart pounding or beating irregularly during the night. He never falls asleep during the day. He rarely falls asleep involuntarily and never falls asleep while driving. He never experiences loss of muscle tone with strong emotion. He never feels paralyzed on waking or falling asleep. He never experiences vivid dreams upon waking or falling asleep. He does not feel afraid of going to sleep. He rarely has nightmares. He occasionally recalls his dreams. He frequently has thoughts racing through his mind. He occasionally feels sad or depressed. He rarely feels anxiety or worry about things. He never notices parts of his body jerk. He never kicks during the night. He frequently feels crawling or aching feelings in his legs. He rarely feels leg pain at night. He never grinds his teeth during sleep and or wakes with morning jaw pain. He frequently feels bothered by pain during the day but is never awakened by pain during the night. He frequently wakes up feeling stiff in the morning. He occasionally wakes feeling sore and achy in the morning with pain in his neck, spine, or joints. Normal bedtime is around 11 pm on the weekdays and the same on the weekends, usually falling asleep within 15 minutes. He typically gets about 8 to 9 hours of sleep per night. His wake up time is between 6 and 7 am on the weekdays and same on the weekends. He typically wakes up around 3 to 4 times per night for around 5 minutes, sometimes going to the bathroom. He sometimes watches TV before falling asleep. He does not take naps in the afternoon or evening. Habits: He smoked tobacco from 1971 to 1991 at 3ppd for total of 60 pack years. Drinks about 3 caffeinated beverages per day. No alcohol or recreational substance use. [facility] Past Medical History Medical History (Updated 03/22/23 @ 11:24 by Bessy Norman MD) COPD (chronic obstructive pulmonary disease) Diabetes Hypertension Obstructive sleep apnea Osteoarthritis of right knee Sleep apnea TIA (transient ischemic attack) Surgical History Surgical History H/O knee surgery (~2002) H/O total cystectomy History of ankle surgery (~1979) History of ear surgery Hx of tonsillectomy Hx of total knee replacement (~2000) Family History Family History Mother Diabetes mellitus Family history of coronary artery disease Family history of malignant neoplasm of breast in first degree relative Family history of congestive heart failure Father Family history of lung cancer, Onset Age: 64 Social History Social History Social History: Caffeine-soda Smoking packs per day: 3 Smoking cigarettes per day: 60.0 Years smoked: 20 Smoking pack-years: 60.00 Smoking status: Former smoker Tobacco type: cigarettes Smoking end date: 11/01/87 Addition
[2023-03-22 11:38] VITALS: BMI 34.9
== END 2023-03-04 06:27 | disposition home or self-care (01) ==
LOC: ANHCSM 09:36
PROVIDERS: PCP Emergency Medicine; Visit Provider Internal Medicine Pulmonary Disease
DX: G47.33 Obstructive sleep apnea (adult) (pediatric) (principal); J44.9 Chronic obstructive pulmonary disease, unspecified; E11.8 Type 2 diabetes mellitus with unspecified complications; I10 Essential (primary) hypertension; Z87.891 Personal history of nicotine dependence
CPT/HCPCS: 95811

== ENCOUNTER 2023-03-05 09:36 | Outpatient (CLI) | payer MEDICARE, OTHER, SELFPAY ==
[2023-03-05 10:00] VITALS: PULSE 78; O2SAT 93
[2023-03-05 10:05] VITALS: PULSE 91; O2SAT 86
[2023-03-05 10:10] VITALS: PULSE 92; O2SAT 88
[2023-03-05 10:15] VITALS: PULSE 93; O2SAT 91
[2023-03-05 10:30] VITALS: PULSE 80; O2SAT 94
--- NOTE | 2023-03-05 10:33 | HOMEO2EVAL ---
Evaluation was performed at [facility] Home Oxygen Evaluation RC: Home Oxygen (O2) Evaluation Start: 03/05/23 10:31 Freq: Status: Active Protocol: RPE Activity Type Activity Date Activity User E-sign Co-sign Detail Recorded Client Recorded Date Recorded By Document 03/05/23 10:00 DJO [email or web address] 03/05/23 10:33 DJO Document 03/05/23 10:05 DJO [email or web address] 03/05/23 10:33 DJO Document 03/05/23 10:10 [email or web address] [email or web address] 03/05/23 10:33 DJO Document 03/05/23 10:15 [email or web address] [email or web address] 03/05/23 10:33 DJO Document 03/05/23 10:30 [email or web address] [email or web address] 03/05/23 10:33 DJO 03/05/23 03/05/23 03/05/23 10:00 10:05 10:10 Home O2 Evaluation [Oxygen] -Test Phase Resting Exercise Exercise -Oxygen Delivery Room Air Room Air Nasal Cannula -Oxygen Flow Rate (L/min) 1 [Pulse Oximetry] -Pulse Oximetry (90-100 %) 93 86 L 88 L [Pulse Rate] -Pulse Rate (60-100 beats/min) 78 91 92 [Evaluation] -Activity Tolerance [Exercise] -Ambulation Distance (feet) -Ambulation Distance (meters) [Charges] -Treatment Charges O2 Evaluation - Outpatient 03/05/23 03/05/23 10:15 10:30 Home O2 Evaluation [Oxygen] -Test Phase Exercise Resting -Oxygen Delivery Nasal Cannula Room Air -Oxygen Flow Rate (L/min) 2 [Pulse Oximetry] -Pulse Oximetry (90-100 %) 91 94 [Pulse Rate] -Pulse Rate (60-100 beats/min) 93 80 [Evaluation] -Activity Tolerance Fair [Exercise] -Ambulation Distance (feet) 750 -Ambulation Distance (meters) 228.58 [Charges] -Treatment Charges
--- NOTE | 2023-03-05 12:35 | WPDPFTINT ---
PFT Procedure Performed PFT Procedure Performed Spirometry with Pre/Post Bronchodilator Plethysmography (Lung Vol) Diffusing Cap (DLCO) Flow Vol Loop PFT Interpretation This is a pulmonary function test with pre and post-bronchodilator spirometry, plethysmography and diffusing capacity. The test was performed and results interpreted in accordance with the 2019 and 2005 ATS/ERS Task Force guidelines respectively using the Global Lung Function Initiative-2012 reference equations. Patient demonstrated good effort and cooperation. Reproducibility criteria were met. The quality of the pre bronchodilator spirometry maneuver was Grade A and post bronchodilator spirometry maneuver was Grade A. Findings: Spirometry: The contour the expiratory flow tracing is that of a witch's hat. The contour the inspiratory flow tracing is normal. The pre bronchodilator FVC is 2.07 L, 52% predicted. The pre bronchodilator FEV1 is 1.68 L, 55% predicted. The pre bronchodilator FEV1: FVC ratio is 81%. The post bronchodilator FVC is 2.17 L, representing a 5% increase. The post bronchodilator FEV1 is 1.78 L, representing a 6% increase. The post bronchodilator FEV1: FVC ratio was 82%. Plethysmography: The total lung capacity is 3.28 L, 49% predicted. The functional residual capacity is 1.80 L, 51% predicted. The residual volume is 1.14 L, 48% predicted. Diffusing capacity: The diffusing capacity unadjusted for hemoglobin and carboxyhemoglobin is 11.6, 46% predicted. The diffusing capacity adjusted for alveolar volume is 4.26, 105% predicted.hich is hat Impression: There is a moderately severe restrictive ventilatory abnormality. The spirometry is normal without evidence of an obstructive abnormality. There is no significant improvement after inhaling a single dose of albuterol. The diffusing capacity unadjusted for hemoglobin and carboxyhemoglobin is moderately decreased and normalizes when adjusted for alveolar volume. There are no prior studies for comparison
== END 2023-03-05 09:37 | disposition home or self-care (01) ==
LOC: ANHPFT 09:37
PROVIDERS: PCP Emergency Medicine; Visit Provider Internal Medicine Pulmonary Disease
DX: R06.00 Dyspnea, unspecified (principal); R94.2 Abnormal results of pulmonary function studies
CPT/HCPCS: 94060; 94618; 94726; 94729

== ENCOUNTER 2023-05-13 09:33 | Outpatient (CLI) | payer MEDICARE, OTHER, SELFPAY ==
--- NOTE | ~2023-05-13 | XR_ITS ---
XR sniff test without CXR2V DATE: 05/13/2023 10:28 INDICATION: Elevated right diaphragm TECHNIQUE: Fluoroscopy was performed during respiratory maneuvers including inspiration, expiration a nd sniffing, with observation of left and right diaphragmatic motion. COMPARISON: 11/17/2022 CT chest abdomen pelvis 10/01/2022 2 view chest FINDINGS: Right diaphragm is elevated but there is normal direction of diaphragmatic movement during inspiration, expiration and sniffing. There is no evidence of paradoxical motion. IMPRESSION: No evidence of. Paradoxical motion of the diaphragm Reviewed, dictated and finalized at Location [facility]. Reviewed, dictated and finalized at location A.
== END 2023-05-13 09:34 | disposition home or self-care (01) ==
PROVIDERS: PCP Emergency Medicine; Visit Provider Internal Medicine Pulmonary Disease
DX: J98.6 Disorders of diaphragm (principal)
CPT/HCPCS: 76000

== ENCOUNTER 2023-05-13 13:31 | Outpatient (CLI) | payer MEDICARE, OTHER, SELFPAY ==
--- NOTE | 2023-05-13 | ECHO_ITS ---
Patient Info Name: Tono Coreas Age: 72 years : 1950 Gender: Male Ht: 63 in Wt: 225 lbs BSA: 2.18 m2 HR: 41 bpm BP: 173 / 110 mmHg Heart Rhythm: Sinus Rhythm Technical Quality: Good Exam Date: 05/13/2023 2:05 PM Exam Location: [facility] Pulmonary Patient Status: Outpatient Admit Date: 05/13/2023 Staff Ordering Physician: Manjula, Senait Kennedy NP Patch Worker: Sami Jackson RDCS Attending Provider: Manjula, Senait Kennedy NP Referring Physician: Manjula OLIVAS; Exam Type: CA echo doppler color flow Study Info Indications - left ventricular systolic dysfunction Complete two-dimensional, color flow and Doppler transthoracic echocardiogram is performed. Summary 1. Complete two-dimensional, color flow and Doppler transthoracic echocardiogram is performed. 2. Left ventricular chamber dimension is mildly enlarged. 3. Left ventricular systolic function is moderately reduced, estimated at 35-40%. 4. Right ventricular chamber dimension is mildly enlarged. 5. Right ventricular systolic function is normal. 6. Left atrial chamber dimension is severely enlarged. 7. Right atrial chamber dimension is moderately enlarged. 8. There is mild mitral valve regurgitation. 9. There is mild tricuspid valve regurgitation. Left Ventricle Left ventricular chamber dimension is mildly enlarged. Left ventricular systolic function is moderately reduced, estimated at 35-40%. There is no increased left ventricular wall thickness. Right Ventricle Right ventricular chamber dimension is mildly enlarged. Right ventricular systolic function is normal. Left Atria Left atrial chamber dimension is severely enlarged. Right Atria Right atrial chamber dimension is moderately enlarged. Atrial Septum Intact interatrial septum visualized by color flow imaging. Aortic Valve The aortic valve is probable trileaflet. There is no aortic valve stenosis. There is no aortic valve regurgitation. Pulmonic Valve The pulmonic valve is not well visualized. Mitral Valve The mitral valve has thickened leaflets. There is mild mitral valve regurgitation. The mitral valve annulus is mildly calcified. Tricuspid Valve There is mild tricuspid valve regurgitation. Pericardium/Pleural There is no pericardial effusion. Inferior Vena Cava Normal inferior vena cava with >50% collapse upon inspiration consistent with normal right atrial pressure, 3 mmHg. Aorta The aortic root size at the sinus of Valsalva is normal. Left Ventricular Outflow Tract Name Value Normal LVOT Doppler LVOT Peak Gradient 4 mmHg LVOT Mean Gradient 2 mmHg LVOT VTI 21 cm LVOT VTI/AV VTI Ratio 0.6 Pulmonic Valve Name Value Normal RVOT Doppler RVOT Peak Gradient 2 mmHg PV Doppler PV Peak Gradient 7 mmHg Mitral Valve
== END 2023-05-13 13:32 | disposition home or self-care (01) ==
PROVIDERS: PCP Emergency Medicine; Visit Provider Nurse Practitioner Adult Health
DX: Z01.810 Encounter for preprocedural cardiovascular examination (principal); J98.6 Disorders of diaphragm; I08.1 Rheumatic disorders of both mitral and tricuspid valves
CPT/HCPCS: 76000; 93306

== ENCOUNTER 2023-09-28 13:59 | Emergency (ER) | payer MEDICARE, OTHER, SELFPAY ==
[2023-09-28 14:05] VITALS: BP 159/88; PULSE 71; RESP 20; TEMP 36.2
--- NOTE | 2023-09-28 14:18 | ED.CHESTPAIN ---
HPI - Chest Pain General Chief Complaint: Chest Pain Stated Complaint: Pain in Left Arm Source: patient and RN notes reviewed History of Present Illness HPI narrative: 73 yo M presents to urgent care with complaints of left upper arm pain that radiates into his left upper chest x 3 hours. Pt denies any SOB, dizziness, N/V, or abdominal pain. Denies any numbness or tingling. Pt did take a baby ASA earlier today. Related Data Home Medications Medication Instructions Recorded Confirmed aspirin 81 mg tablet 81 mg PO DAILY 08/31/22 09/28/23 spironolactone 25 mg tablet 25 mg PO DAILY 02/03/23 09/28/23 Allergies Allergy/AdvReac Type Severity Reaction Status Date / Time Sulfa (Sulfonamide Allergy Unknown Unknown Verified 09/28/23 14:17 Antibiotics) codeine AdvReac Intermediate Gastrointestinal Verified 09/28/23 14:17 Upset Review of Systems Review of Systems: CONSTITUTIONAL: Denies fever, chills, or sweats. EYES: Denies visual changes, redness, or discharge. ENT: Denies otalgia and sore throat CARDIOVASCULAR: Denies palpitations, or edema. RESPIRATORY: Denies cough or dyspnea. GASTROINTESTINAL: Denies abdominal pain, nausea, vomiting, or diarrhea. GENITOURINARY: Denies dysuria or hematuria. SKIN: Denies rash or itching. MUSCULOSKELETAL: Denies back pain, joint pain. NEUROLOGIC: Denies headache, numbness, or weakness. Pertinent positives per HPI. [facility] Past Medical History Medical History COPD (chronic obstructive pulmonary disease) Diabetes Hypertension Obstructive sleep apnea Osteoarthritis of right knee Sleep apnea TIA (transient ischemic attack) Surgical History Surgical History H/O knee surgery (~2002) H/O total cystectomy History of ankle surgery (~1979) History of ear surgery Hx of tonsillectomy Hx of total knee replacement (~2000) Family History Family History Mother Diabetes mellitus Family history of coronary artery disease Family history of malignant neoplasm of breast in first degree relative Family history of congestive heart failure Father Family history of lung cancer, Onset Age: 64 Social History Social History Social History: Caffeine-soda Smoking packs per day: 3 Smoking cigarettes per day: 60.0 Years smoked: 20 Smoking pack-years: 60.00 Smoking status: Former smoker Tobacco type: cigarettes Smoking end date: 11/01/87 Additional smoking assessment comments: DID NOT SMOKE 3 PKS THE ENTIRE TIME Alcohol intake: never Substance use: never Substance use type: does not use Lack of Transportation: No Lack of Food: Never True Current Housing: I Have Housing Concerned About Future Housing: No Difficulty Paying Gas/Electric Bills: No Difficulty Paying for Meds: No Currently Unemployed: No Education: Bachelor's Degree Difficulty w/ Childcare or Family Care: No Living arrangements: with family Spiritual care concerns: No Comments At the time of my signature, I reviewed and agree with the nursing past medical, surgical, social, and family history. There is no relevant family history pertinent to the patient complaint. Exam Narrative: GENERAL: This is a well-nourished, well-developed patient, in no apparent distress. HEAD: normocephalic, atraumatic. EYES: Sclera clear/white. Vision is grossly intact. EARS: External ears normal, auditory canals clear and without drainage. Hearing grossly intact. NOSE: External nose normal with no obvious nasal discharge, nares without redness, no rhinorrhea. THROAT: Mucous membranes moist, posterior pharynx clear. NECK: Neck supple, non-tender without lymphadenopathy, masses or thyromegaly. CARDIOVASCULAR: Regular rate and rhythm without murmurs, gal
--- NOTE | 2023-09-28 14:42 | ECG_ITS ---
Measurements Intervals [place] Rate: 70 P: 36 UT: 206 QRS: -15 QRSD: 122 T: 79 QT: 447 QTc: 483 Interpretive Statements SINUS RHYTHM VENTRICULAR PREMATURE COMPLEXES BORDERLINE AV CONDUCTION DELAY INTRAVENTRICULAR CONDUCTION DELAY VOLTAGE CRITERIA FOR LVH BORDERLINE ECG COMPARED TO ECG 07/01/2022 16:56:14 SINUS RHYTHM NOW PRESENT Electronically Signed On 09-28-2023 16:24:45 FINANCIAL AGENT by Flex Fish D.O.
== END 2023-09-28 14:22 | disposition short-term general hospital (02) ==
PROVIDERS: Emergency Provider Nurse Practitioner Family; PCP Emergency Medicine
DX: R07.9 Chest pain, unspecified (principal); Z87.891 Personal history of nicotine dependence; J44.9 Chronic obstructive pulmonary disease, unspecified; E11.9 Type 2 diabetes mellitus without complications; I10 Essential (primary) hypertension; M17.11 Unilateral primary osteoarthritis, right knee; Z86.73 Personal history of transient ischemic attack (TIA), and cerebral infarction without residual deficits; Z79.82 Long term (current) use of aspirin
CPT/HCPCS: 93005; 99214; G0463

== ENCOUNTER 2023-09-28 15:04 | Emergency (ER) | payer MEDICARE, OTHER, SELFPAY ==
[2023-09-28] VITALS (13 sets, daily range): BP systolic 128–159; BP diastolic 71–100; PULSE 55–70; RESP 11–25; TEMP 36.2; O2SAT 94–100
--- NOTE | ~2023-09-28 | XR_ITS ---
XR chest 2V 09/28/2023 15:23 Indication: Chest pain Procedure: 2 view chest Comparison: 10/01/2022 Findings: Chronic elevation of the right diaphragm. There is a large bleb in the right upper thorax. Stable cardiomediastinal silhouette. No focal air space disease, pulmonary edema, pleural effusion or suspected pneumothorax. Impression: 1: No acute cardiopulmonary disease. Reviewed, dictated and finalized at location L. OGY DEPARTMENT CHAIR Impression: 1: No acute cardiopulmonary disease.
--- NOTE | 2023-09-28 15:05 | ECG_ITS ---
Measurements Intervals [place] Rate: 69 P: 23 MI: 195 QRS: -24 QRSD: 116 T: 77 QT: 424 QTc: 456 Interpretive Statements SINUS RHYTHM VENTRICULAR PREMATURE COMPLEXES INTRAVENTRICULAR CONDUCTION DELAY DELAYED PRECORDIAL R/S TRANSITION LEFT VENTRICULAR HYPERTROPHY AND ST-T CHANGE BASELINE ARTIFACT- I, III, AVR, AVL BORDERLINE ECG COMPARED TO ECG 09/28/2023 14:09:52 NO SIGNIFICANT CHANGES Electronically Signed On 09-28-2023 16:27:05 PORT CDL A DRIVER by Felx Fish D.O.
[2023-09-28 15:52] LABS: Basophils Percent Auto 0.3 % (0.2-1.2); Eosinophils Absolute Auto 0.3 K/mm3 (0-0.3); Eosinophils Percent Auto 3.6 % (0-4.4); Hematocrit 47.7 % (42.0-52.0); Hemoglobin 15.4 g/dL (14.0-18.0); Immature Granulocyte Absolute 0.02 K/mm3 (0.00-0.031); Immature Granulocyte Percent A 0.3 % (0-0.5); Lymphocytes Absolute Auto 1.22 K/mm3 (0.9-3.2); Lymphocytes Percent Auto 16.4 % (18.3-44.2); Mean Corpuscular HGB Conc 32.3 g/dl (32-36); Mean Corpuscular Hemoglobin 28.4 pg (26-34); Mean Platelet Volume 10.9 fl (7.4-10.4); Monocytes Absolute Auto 0.8 K/mm3 (0.1-0.6); Monocytes Percent Auto 10.7 % (2.6-8.5); Neutrophils Absolute Auto 5.1 K/mm3 (1.3-6.7); Neutrophils Percent Auto 68.7 % (45.5-73.1); Platelet Count Result 218 k/mm3 (150-375); Red Blood Count 5.42 M/mm3 (4.6-6.20); Red Cell Distribution Width 14.7 % (11.5-14.5); White Blood Count 7.5 K/mm3 (4.5-10.0)
[2023-09-28 16:06] LABS: Alanine Aminotransferase 34 U/L (6-50); Albumin Level 4.3 g/dL (3.5-5.1); Alkaline Phosphatase 100 U/L (38-126); Anion Gap 9 mmol/L (8-16); Aspartate Amino Transferase 30 U/L (17-59); Blood Urea Nitrogen 15 mg/dL (9-20); Carbon Dioxide 29 mmol/L (22-30); Chloride 101 mmol/L (98-107); Estimated CRCL calculation 83 ml/min; Estimated Glomerular Filt Rate > 60; Glucose 104 mg/dL (65-110); Lipase 110 U/L (23-300); Potassium 4.4 mmol/L (3.4-5.0); Sodium 139 mmol/L (137-145)
[2023-09-28 16:15] LABS: INR 1.1; Partial Thromboplastin Time 33.8 SECONDS (22.3-36.8)
[2023-09-28 16:16] LABS: Troponin I < 0.012 ng/mL (0.000-0.034)
--- NOTE | 2023-09-28 18:22 | ED.CHESTPAIN ---
HPI - Chest Pain General Chief Complaint: Chest Pain Stated Complaint: cp, left arm pain Time Seen by Provider: 09/28/23 18:09 History of Present Illness HPI narrative: Pt states he noticed some pain on the inside of his left arm that radiated to his lateral chest 1230 or 1300 today. Pt says it is gone now but noticed in WR that moving his arm an torso in certain ways reproduced the pain and it quickly resolved. Pt denies SOB or any anterior chest pain. Pt has HTN and elevated cholesterol. Related Data Home Medications Medication Instructions Recorded Confirmed aspirin 81 mg tablet 81 mg PO DAILY 08/31/22 09/28/23 spironolactone 25 mg tablet 25 mg PO DAILY 02/03/23 09/28/23 Allergies Allergy/AdvReac Type Severity Reaction Status Date / Time Sulfa (Sulfonamide Allergy Unknown Unknown Verified 09/28/23 14:17 Antibiotics) codeine AdvReac Intermediate Gastrointestinal Verified 09/28/23 14:17 Upset Review of Systems Review of Systems: All systems reviewed & are unremarkable except as noted in HPI and below PMFSH Past Medical History Medical History COPD (chronic obstructive pulmonary disease) Diabetes Hypertension Obstructive sleep apnea Osteoarthritis of right knee Sleep apnea TIA (transient ischemic attack) Surgical History Surgical History H/O knee surgery (~2002) H/O total cystectomy History of ankle surgery (~1979) History of ear surgery Hx of tonsillectomy Hx of total knee replacement (~2000) Family History Family History Mother Diabetes mellitus Family history of coronary artery disease Family history of malignant neoplasm of breast in first degree relative Family history of congestive heart failure Father Family history of lung cancer, Onset Age: 64 Social History Social History Social History: Caffeine-soda Smoking packs per day: 3 Smoking cigarettes per day: 60.0 Years smoked: 20 Smoking pack-years: 60.00 Smoking status: Former smoker Tobacco type: cigarettes Smoking end date: 11/01/87 Additional smoking assessment comments: DID NOT SMOKE 3 PKS THE ENTIRE TIME Alcohol intake: never Substance use: never Substance use type: does not use Lack of Transportation: No Lack of Food: Never True Current Housing: I Have Housing Concerned About Future Housing: No Difficulty Paying Gas/Electric Bills: No Difficulty Paying for Meds: No Currently Unemployed: No Education: Bachelor's Degree Difficulty w/ Childcare or Family Care: No Living arrangements: with family Spiritual care concerns: No Exam Const: General: healthy appearing and no acute distress Nutritional Appearance: well nourished Orientation/consciousness: patient oriented x3 Limitations: no limitations HENMT: Head: normal to inspection Eyes: Conjunctivae: conjunctivae normal EOM: EOMs intact bilaterally Chest: Chest palpation & inspection: normal inspection of the chest and tenderness (lateral left lower chest over ribs mild) Resp: Effort & Inspection: normal respiratory effort Auscultation: clear to auscultation bilaterally Cardio: Rate: regular rate Rhythm: regular rhythm GI: GI Palp: Yes Soft to palpation Skin: General skin exam: normal color Rashes: no rashes Wounds: no wounds Neuro: General: patient oriented x3, moves all extremities, no meningeal signs and no focal motor deficits Speech: normal speech Extrem: General: normal to inspection and no clubbing, cyanosis or edema Psych: Mental Status: mental status grossly normal Affect: normal affect Attitude: cooperative Course Vital Signs Vital signs: Vital Signs Temperature 97.1 F L 09/28/23 15:09 Pulse Rate 63 09/28/23 15:09 Respiratory Rate 16
== END 2023-09-28 19:28 | disposition home or self-care (01) ==
LOC: ANHED 18:38
PROVIDERS: Emergency Medicine; Emergency Provider Emergency Medicine; PCP Emergency Medicine
DX: R07.89 Other chest pain (principal); J44.9 Chronic obstructive pulmonary disease, unspecified; I10 Essential (primary) hypertension; G47.30 Sleep apnea, unspecified; M17.11 Unilateral primary osteoarthritis, right knee; Z86.73 Personal history of transient ischemic attack (TIA), and cerebral infarction without residual deficits
CPT/HCPCS: 36415; 71046; 80053; 83690; 84484; 85025; 85610; 85730; 93005; 99284

== ENCOUNTER 2023-12-06 11:39 | Emergency (ER) | payer MEDICARE, OTHER, SELFPAY ==
--- NOTE | ~2023-12-06 | XR_ITS ---
XR finger 1st RT min 2V DATE: 12/06/2023 12:10 INDICATION: Fall one week ago. Distal first digit pain TECHNIQUE: 3 views COMPARISON: None FINDINGS: There is a transverse minimally displaced recent fracture at the proximal shaft of the dist al phalanx, with no significant angulation. Mild osteoarthritis at the first metacarpophalangeal and interphalangeal joints Severe hypertrophic osteoarthritic change at the first carpometacarpal joint IMPRESSION: Proximal shaft fracture of distal phalanx first digit Reviewed, dictated and finalized at location B. TH AND WELLNESS ADVISOR
[2023-12-06 11:48] VITALS: BP 151/110; PULSE 67; RESP 20; TEMP 36.9; O2SAT 67
--- NOTE | 2023-12-06 11:55 | ED.GENADULT ---
HPI - General Adult General Chief complaint: Extremity Injury, Upper Stated complaint: Right thumb injury Source: patient, RN notes reviewed and old records reviewed Mode of arrival: ambulatory Limitations: no limitations History of Present Illness HPI narrative: 73-year-old male patient presents to [facility] with complaint of of right thumb pain for 1 week following a fall. Patient states he has not done anything for pain. Patient denies any other injuries. Related Data Home Medications Medication Instructions Recorded Confirmed aspirin 81 mg tablet 81 mg PO DAILY 08/31/22 10/15/23 spironolactone 25 mg tablet 25 mg PO DAILY 02/03/23 10/15/23 Allergies Allergy/AdvReac Type Severity Reaction Status Date / Time Sulfa (Sulfonamide Allergy Unknown Unknown Verified 10/15/23 11:01 Antibiotics) codeine AdvReac Intermediate Gastrointestinal Verified 10/15/23 11:01 Upset Review of Systems Constitutional: Constitutional: Reports no additional constitutional complaints, Denies body ache(s), Denies chills, Denies fatigue, Denies fever(s) and Denies headache(s) Eyes: Eyes: Reports no additional eye complaints and Denies blurry vision ENT: Reports system reviewed and no additional complaints, except as documented, Denies vertigo, Denies dizziness, Denies ear discharge, Denies otalgia, Denies facial pain, Denies headache(s), Denies nasal congestion, Denies nasal discharge, Denies sinus pain, Denies sinus pressure and Denies sore throat Cardiovascular: Cardiovascular: Reports no additional cardiovascular complaints, Denies chest pain, Denies chest pain at rest, Denies rapid heart rate and Denies dyspnea Respiratory: Respiratory: Reports no additional respiratory complaints, Denies chest congestion, Denies cough, Denies pain on inspiration, Denies pain with cough and Denies dyspnea Gastrointestinal: Gastrointestinal: Denies abdominal pain, Denies diarrhea, Denies nausea and Denies vomiting Musculoskeletal: Comments: Right thumb pain Integumentary/Breasts: Skin/Breast: Denies rash Neurologic: Reports system reviewed and no additional complaints, except as documented, Denies vertigo, Denies dizziness and Denies headache(s) Endocrine: Endocrine: Denies fatigue PMFSH Past Medical History Medical History COPD (chronic obstructive pulmonary disease) Diabetes Hypertension Obstructive sleep apnea Osteoarthritis of right knee Sleep apnea TIA (transient ischemic attack) Surgical History Surgical History H/O knee surgery (~2002) H/O total cystectomy History of ankle surgery (~1979) History of ear surgery Hx of tonsillectomy Hx of total knee replacement (~2000) Family History Family History Mother Diabetes mellitus Family history of coronary artery disease Family history of malignant neoplasm of breast in first degree relative Family history of congestive heart failure Father Family history of lung cancer, Onset Age: 64 Social History Social History Social History: Caffeine-soda Smoking packs per day: 3 Smoking cigarettes per day: 60.0 Years smoked: 20 Smoking pack-years: 60.00 Smoking status: Former smoker Tobacco type: cigarettes Smoking end date: 11/01/87 Additional smoking assessment comments: DID NOT SMOKE 3 PKS THE ENTIRE TIME Alcohol intake: never Substance use: never Substance use type: does not use Lack of Transportation: No Lack of Food: Never True Current Housing: I Have Housing Concerned About Future Housing: No Difficulty Paying Gas/Electric Bills: No Difficulty Paying for Meds: No Currently Unemployed: No Education: Bachelor's Degree Difficulty w/ Childcare or Family Care: No Living arrangements: with family
== END 2023-12-06 12:35 | disposition home or self-care (01) ==
PROVIDERS: Emergency Provider Registered Nurse; PCP Emergency Medicine
DX: S62.521A Displaced fracture of distal phalanx of right thumb, initial encounter for closed fracture (principal); W19.XXXA Unspecified fall, initial encounter; S60.111A Contusion of right thumb with damage to nail, initial encounter; J44.9 Chronic obstructive pulmonary disease, unspecified; E11.9 Type 2 diabetes mellitus without complications; I10 Essential (primary) hypertension; M17.11 Unilateral primary osteoarthritis, right knee; Z86.73 Personal history of transient ischemic attack (TIA), and cerebral infarction without residual deficits; Z79.82 Long term (current) use of aspirin; Z87.891 Personal history of nicotine dependence
CPT/HCPCS: 29130; 73140; 99214; G0463

== ENCOUNTER 2023-12-24 12:50 | Outpatient (CLI) | payer MEDICARE, OTHER, SELFPAY ==
--- NOTE | ~2023-12-24 | XR_ITS ---
EXAMINATION: XR finger 1st RT min 2V INDICATION: Displaced fracture of the first distal phalanx, follow-up TECHNIQUE: Three views of the right first finger are obtained. COMPARISON: 12/06/2023 FINDINGS: Again seen is a mildly comminuted transverse fracture in the proximal third of the first di stal phalanx. Alignment at the fracture site is unchanged. There is minimal early calcified callus fo rmation. The joint spaces are without acute abnormality. Mild osteoarthritis is noted at the first in terphalangeal joint. There is severe osteoarthritis at the first metacarpophalangeal joint. IMPRESSION: 1. Transverse fracture of the first distal phalanx with early healing. Reviewed, dictated and finalized at location B. [employer]
== END 2023-12-24 12:51 | disposition home or self-care (01) ==
LOC: ANHIMG 12:53
PROVIDERS: PCP Emergency Medicine; Visit Provider Orthopaedic Surgery
DX: S62.630D Displaced fracture of distal phalanx of right index finger, subsequent encounter for fracture with routine healing (principal)
CPT/HCPCS: 73140

== ENCOUNTER 2024-01-04 07:57 | Outpatient (CLI) | payer MEDICARE, OTHER, SELFPAY ==
--- NOTE | ~2024-01-04 | US_ITS ---
EXAMINATION: US arterial ankle brachial ind DATE: 01/04/2024 08:42 INDICATION: Peripheral vascular disease, unspecified. TECHNIQUE: Segmental pressures and plethysmographic and Doppler waveforms of the brachial and lower e xtremity arteries were obtained. COMPARISON: None. FINDINGS: Right and left brachial artery pressures of 144 mm Hg and 144 mm Hg, respectively, are concordant (no rmal difference <= 30 mmHg). The right ankle-brachial index (WINNIE) is 1.29 (normal >= 0.9-1.0). The right great toe-brachial index (TBI) is 0.86 (normal >= 0.65). Arterial Doppler waveforms are triphasic at the ankle. The left WINNIE could not be measured due to inability to cuff occlude the arteries. The left TBI is 0.7 0. Arterial Doppler waveforms are triphasic at the ankle. IMPRESSION: 1. No significant arterial occlusive disease. Reviewed, dictated and finalized at location E. INE SHORTHAND REPORTER
== END 2024-01-04 07:58 | disposition home or self-care (01) ==
PROVIDERS: PCP Emergency Medicine; Visit Provider Emergency Medicine
DX: I73.9 Peripheral vascular disease, unspecified (principal)
CPT/HCPCS: 93922

== ENCOUNTER 2024-04-27 14:54 | Emergency (ER) | payer OTHER, MEDICARE, SELFPAY ==
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
[2024-04-27 15:06] VITALS: BP 189/105; PULSE 78; RESP 20; TEMP 36.9; O2SAT 96
[2024-04-27 15:11] VITALS: BP 189/105; PULSE 78; RESP 20; TEMP 36.9; O2SAT 96
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
== END 2024-04-27 15:40 | disposition home or self-care (01) ==
PROVIDERS: Emergency Provider Nurse Practitioner; PCP Emergency Medicine
DX: S62.235A Other nondisplaced fracture of base of first metacarpal bone, left hand, initial encounter for closed fracture (principal); V49.60XA Unspecified car occupant injured in collision with unspecified motor vehicles in traffic accident, initial encounter; J44.9 Chronic obstructive pulmonary disease, unspecified; E11.9 Type 2 diabetes mellitus without complications; I10 Essential (primary) hypertension; M17.11 Unilateral primary osteoarthritis, right knee; Z86.73 Personal history of transient ischemic attack (TIA), and cerebral infarction without residual deficits; Z87.891 Personal history of nicotine dependence; Z79.82 Long term (current) use of aspirin
CPT/HCPCS: 29125; 73130; 99214; A4565; G0463

== ENCOUNTER 2024-10-03 11:18 | Emergency (ER) | payer MEDICARE, OTHER, SELFPAY ==
--- NOTE | ~2024-10-03 | XR_ITS ---
EXAMINATION: XR chest 2V DATE: 10/03/2024 11:51 INDICATION: One month of cough TECHNIQUE: PA and lateral views of the chest were obtained. COMPARISON: Chest radiograph dated 09/28/[address] dated 11/17/2022 FINDINGS: Chronic elevation the right hemidiaphragm. Mild emphysema with unchanged prominent bulla along the la teral right upper lung zone. Unchanged subtle groundglass opacity at the right midlung zone which piedad ears to correspond to mild atelectasis/scarring along the right major and minor fissures Calcified no dule at the left lower lung zone consistent with old granulomatous disease. No new airspace opacities , pulmonary edema, pleural effusion or pneumothorax. Cardiomegaly. IMPRESSION: 1. Chronic elevation the right hemidiaphragm and emphysema with stable appearance of a prominent bleb in the lateral right upper lung zone and of mild atelectasis/scarring in the right midlung zone. No acute cardiopulmonary disease. 2. Cardiomegaly. Reviewed, dictated and finalized at location [facility] IMPRESSION: 1. Chronic elevation the right hemidiaphragm and emphysema with stable appearan ce of a prominent bleb in the lateral right upper lung zone and of mild atelect asis/scarring in the right midlung zone. No acute cardiopulmonary disease. 2. Cardiomegaly.
[2024-10-03 11:24] VITALS: BP 159/82; PULSE 68; RESP 20; TEMP 36.6; O2SAT 95
--- NOTE | 2024-10-03 11:47 | ED.GENADULT ---
HPI - General Adult General Chief complaint: Upper Respiratory Infection Stated complaint: cold symptoms Source: patient Mode of arrival: ambulatory Limitations: no limitations History of Present Illness HPI narrative: Patient presents for evaluation of a cough for the last month, worse in the last week. Cough is productive clear/white sputum. He has some dyspnea on exertion but no shortness of breath at rest. No fever chills, nausea, vomiting, diarrhea. His is in a nursing facility and is not sure whether he has been exposed to any specific sick contacts. He does not smoke. He has an underlying history of hypertension, hyperlipidemia, COPD, DIONNE. He does not use a CPAP. He woke up at 2:30 a.m. this morning with a sore throat, which has since resolved. Related Data Home Medications Medication Instructions Recorded Confirmed spironolactone 25 mg tablet 25 mg PO DAILY 02/03/23 04/27/24 aspirin 81 mg tablet 81 mg PO .every other day 12/10/23 04/27/24 Allergies Allergy/AdvReac Type Severity Reaction Status Date / Time Sulfa (Sulfonamide Allergy Unknown Unknown Verified 10/03/24 11:19 Antibiotics) codeine AdvReac Intermediate Gastrointestinal Verified 10/03/24 11:19 Upset Review of Systems Review of Systems: CONSTITUTIONAL: Denies fever, chills, or sweats. EYES: Denies visual changes, redness, or discharge. ENT: Denies rhinorrhea, congestion, sore throat, or otalgia. CARDIOVASCULAR: Denies chest pain, palpitations, or edema. RESPIRATORY: Reports cough and SHAH. Denies SOB at rest. GASTROINTESTINAL: Denies abdominal pain, nausea, vomiting, or diarrhea. GENITOURINARY: Denies dysuria or hematuria. SKIN: Denies rash or itching. MUSCULOSKELETAL: Denies back pain, joint pain, or myalgia. NEUROLOGIC: Denies headache, numbness, dizziness, or weakness. PSYCHIATRIC: Denies anxiety or depression. [facility] Past Medical History Medical History COPD (chronic obstructive pulmonary disease) Diabetes Hyperlipidemia Hypertension Obstructive sleep apnea Osteoarthritis of right knee Sleep apnea TIA (transient ischemic attack) Surgical History Surgical History H/O knee surgery (~2002) H/O total cystectomy History of ankle surgery (~1979) History of ear surgery Hx of tonsillectomy Hx of total knee replacement (~2000) Family History Family History Mother Diabetes mellitus Family history of coronary artery disease Family history of malignant neoplasm of breast in first degree relative Family history of congestive heart failure Father Family history of lung cancer, Onset Age: 64 Social History Social History Social History: Caffeine-soda Smoking packs per day: 3 Smoking cigarettes per day: 60.0 Years smoked: 20 Smoking pack-years: 60.00 Smoking status: Former smoker Tobacco type: cigarettes Smoking end date: 11/01/87 Additional smoking assessment comments: DID NOT SMOKE 3 PKS THE ENTIRE TIME Alcohol intake: never Substance use: never Substance use type: does not use Do You Feel Safe in your Home?: Yes Lack of Transportation: No Lack of Food: Never True Current Housing: I Have Housing Concerned About Future Housing: No Difficulty Paying Gas/Electric Bills: No Difficulty Paying for Meds: No Currently Unemployed: No Education: Bachelor's Degree Difficulty w/ Childcare or Family Care: No Living arrangements: with family Spiritual care concerns: No Exam Narrative: GENERAL: Well-appearing, well-nourished, and in no acute distress. HEAD: Normocephalic, atraumatic. EYES: PERRLA and EOMI. ENT: Nares clear, no rhinorrhea or epistaxis. Mucous membranes moist. Oropharynx without tonsillar hypertrophy exudate or other lesions. There is yellow fluid behind right TM which is bulging NECK: Supple. No adenopathy or masses. No carotid bruits or JVD CHEST: Clear to auscultation. No respiratory distress. No wheezes rales or rhonchi HEART: Regular rate and rhythm. No murmur heard. Normal peripheral pulses. ABDOMEN: Soft, nontender, nondistended, normal active bowel sounds. EXTREMITIES: Normal range of motion. No edema. SKIN: Warm, dry, no rash. NEURO: No focal deficits. Alert and oriented x3. PSYCH: Normal mood and affect. Course Course Emergency Course: This is a 74-year-old male who presented for evaluation of respiratory symptoms. Chest x-ray did not show evidence of pneumonia but he does have cardiomegaly. I recommended he follow up with primary care provider to determine whether he would benefit from an echocardiogram. In terms of his sick symptoms, he has evidence of otitis media on exam. Will discharge with Augmentin. He may use Mucinex DM for cough. He should go to the emergency department for worsening symptoms and patient is in agreement with plan of care. Level of Care: Express Care Visit Vital Signs Vital signs: Vital Signs Temperature 36.6 C 10/03/24 11:24 Pulse Rate 68 10/03/24 11:24 Respiratory Rate 20 10/03/24 11:24 Blood Pressure 159/82 H 10/03/24 11:24 Pulse Oximetry 95 10/03/24 11:24 Oxygen Delivery Room Air 10/03/24 11:24 Temperature 36.6 C 10/03/24 11:24 Pulse Rate 68 10/03/24 11:24 Respiratory Rate 20 10/03/24 11:24 Blood Pressure 159/82 H 10/03/24 11:24 Pulse Oximetry 95 10/03/24 11:24 Oxygen Delivery Room Air 10/03/24 11:24 Medical Decision Making Vital Signs Vital Signs: Vital Signs Temperature 36.6 C 10/03/24 11:24 Pulse Rate 68 10/03/24 11:24 Respiratory Rate 20 10/03/24 11:24 Blood Pressure 159/82 H 10/03/24 11:24 Pulse Oximetry 95 10/03/24 11:24 Oxygen Delivery Room Air 10/03/24 11:24 Temperature 36.6 C 10/03/24 11:24 Pulse Rate 68 10/03/24 11:24 Respiratory Rate 20 10/03/24 11:24 Blood Pressure 159/82 H 10/03/24 11:24 Pulse Oximetry 95 10/03/24 11:24 Oxygen Delivery Room Air 10/03/24 11:24 Imaging Data Radiologist's impression: EXAMINATION: XR chest 2V DATE: 10/03/2024 11:51 INDICATION: One month of cough TECHNIQUE: PA and lateral views of the chest were obtained. COMPARISON: Chest radiograph dated 09/28/[address] dated 11/17/2022 FINDINGS: Chronic elevation the right hemidiaphragm. Mild emphysema with unchanged prominent bulla along the lateral right upper lung zone. Unchanged subtle groundglass opacity at the right midlung zone which appears to correspond to mild atelectasis/scarring along the right major and minor fissures Calcified nodule at the left lower lung zone consistent with old granulomatous disease. No new airspace opacities, pulmonary edema, pleural effusion or pneumothorax. Cardiomegaly. IMPRESSION: 1. Chronic elevation the right hemidiaphragm and emphysema with stable appearance of a prominent bleb in the lateral right upper lung zone and of mild atelectasis/scarring in the right midlung zone. No acute cardiopulmonary disease. 2. Cardiomegaly. Discharge Plan Discharge Clinical Impression: Acute otitis media, right, Cardiomegaly Patient Disposition: Home, Self-Care Condition: Stable Instructions: Antibiotic Form, Ear Infection (ED), Upper Respiratory Infection (ED), Viral Syndrome (ED) Additional Instructions: Please speak with her primary care provider to determine whether you would benefit from an echocardiogram given cardiomegaly seen on chest x-ray Patient Language: Swedish Prescriptions: New amoxicillin-pot clavulanate 875-125 mg tablet 1 tablet PO Q12H Qty: 20 0RF dextromethorphan-guaifenesin [Mucinex DM] 60-1,200 mg tablet extended release 12 hr 1 tablet PO Q12H PRN (Reason: cough) Qty: 20 0RF No Action spironolactone 25 mg tablet 25 mg PO DAILY aspirin 81 mg tablet 81 mg PO .every other day atorvastatin 40 mg tablet 40 mg PO DAILY Qty: 90 3RF omeprazole 40 mg capsule,delayed release(DR/EC) 40 mg PO DAILY Qty: 90 1RF tamsulosin 0.4 mg capsule 0.4 mg PO QHS Qty: 30 5RF irbesartan 300 mg tablet 300 mg PO DAILY Qty: 90 1RF Rx Instructions: TAKE ONE TABLET BY MOUTH ONCE DAILY metoprolol succinate 25 mg tablet extended release 24 hr See Rx Instructions .ROUTE .COMPLEX Qty: 90 3RF Dose Instruction: TAKE 1 TABLET BY MOUTH EVERY DAY Rx Instructions: TAKE 1 TABLET BY MOUTH EVERY DAY trazodone 150 mg tablet See Rx Instructions .ROUTE .COMPLEX Qty: 90 2RF Dose Instruction: 150 MG ORALLY EVERY DAY AT BEDTIME NEEDED FOR INSOMNIA DUR FOR APPOINTMENT Rx Instructions: 150 MG ORALLY EVERY DAY AT BEDTIME NEEDED FOR INSOMNIA DUR FOR APPOINTMENT Follow-up/Referrals: Bennie Ramos MD [Primary Care Provider] - Time of Disposition: 12:14
== END 2024-10-03 12:15 | disposition home or self-care (01) ==
PROVIDERS: Emergency Provider Nurse Practitioner; PCP Emergency Medicine
DX: H66.91 Otitis media, unspecified, right ear (principal); I51.7 Cardiomegaly; Z87.891 Personal history of nicotine dependence; J44.9 Chronic obstructive pulmonary disease, unspecified; E11.9 Type 2 diabetes mellitus without complications; I10 Essential (primary) hypertension; E78.5 Hyperlipidemia, unspecified; G47.33 Obstructive sleep apnea (adult) (pediatric); M17.11 Unilateral primary osteoarthritis, right knee; Z86.73 Personal history of transient ischemic attack (TIA), and cerebral infarction without residual deficits; Z79.82 Long term (current) use of aspirin
CPT/HCPCS: 71046; 99213; G0463

== ENCOUNTER 2025-01-31 11:55 | Outpatient (CLI) | payer MEDICARE, OTHER, SELFPAY ==
--- OUTSIDE RECORDS SUMMARY | 2025-01-31 13:23 | XMS_ITS | Referral Summary ---
Author Organization [facility] [id number] Address [address] [place] [address] Care Team Providers Care Animation Director Name Role Phone Bennie Ramos MD Primary Care Provider [phone] Linda Barber RN Unavailable Macrina vailable Encounters Date Type Department Care Team Description 12/04/2024 10:00 AM DISTRICT MANAGER IN TRAINING Office Visit [facility]) [facility] [address], [address] [place] [address] Toño Calhoun MD Mixed conductive and sensorineural hearing loss of right ear with restricted hearing of left ear (Primary Dx) 12/04/2024 9:00 AM DISTRICT MANAGER IN TRAINING Procedure visit [facility] Otolaryngology [address] [place] [address] Cari Woodward Au.D. Mixed conductive and sensorineural hearing loss, bilateral (Primary Dx) 11/22/2024 Orders Only [facility] [address] [place] [address] ProviderJefe MD 11/20/2024 11:30 AM DISTRICT MANAGER IN TRAINING Office Visit [facility] Cardiology at [address] [place] [address] Austen Lion MD Left ventricular systolic dysfunction (Primary Dx); Primary hypertension; Severe obesity (HCC); Lipid screening 11/09/2024 Telephone [facility] [address] [place] [address] Austen Lion MD from Last 3 Months Allergies Active Allergy Reactions Criticality Noted Date Comments Codeine Nausea only,Other (S ee comments),Nausea And Vomiting,Nausea & Vomiting Low 03/17/2022 Reaction: Reaction: Medications aspirin 81 mg tablet Active metoprolol XL (TOPROL-XL) 25 mg 24 hr tablet Acti ve omeprazole (PriLOSEC) 20 mg capsule Take 2 capsules (40 mg total) by mouth daily Active irbesartan (AVAPRO) 300 mg tablet Take 1 tablet (300 mg total) by mouth nightly Active tamsulosin (FLOMAX) 0.4 mg extended release capsule 04/12/2023 Act roldan atorvastatin (LIPITOR) 40 mg tablet Take 1 tablet (40 mg total) by mouth daily 11/13/2024 Active traZODone (DESYREL) 150 mg tablet Take 1 tablet (150 mg total) by mouth nightly 10/02/2024 Active spironolactone (ALDACTONE) 25 mg tablet TAKE 1 TABLET BY MOUTH EVERY DAY 30 tablet 01/01/2025 Active Active Problems Problem Noted Date Diagnosed Date Severe obesity 11/20/2024 Stenosis of right subclavian artery 06/01/2024 Assessment & Plan (06/01/2024 12:35 PM CDT): CTA of the chest and neck recently reviewed shows tortuosity of the origin of the right subclavian artery resulting in some stenosis. Patient remains asymptomatic. No vascular intervention is needed at this time. Bilateral carotid artery stenosis 03/11/2023 Assessment & Plan (06/01/2024 12:33 PM CDT): CTA of the neck is not show any progression of carotid stenosis remains less than 50%. Plan: Continue aspirin statin therapy follow up in 1 year with carotid duplex. Assessment & Plan (04/13/2023 11:09 AM CDT): Asymptomatic less than 50% stenosis. Continue ongoing medical management follow- up 1 year with duplex. Assessment & Plan (03/11/2023 1:03 PM CDT): Impression: Concern for right subclavian stenosis seen on CTA of carotid performed at an outside facility. Patient remains asymptomatic. Patient also denies any symptoms of focal or lateralizing neurological defects, amaurosis fugax, or speech disturbances at this time. Plan: Recommend patient to continue aspirin, statin therapy. -we will have patient follow-up in 2 weeks for re-evaluation with a carotid duplex. -requesting imaging of CTA carotid performed at [facility] for evaluation. Primary hypertension 03/11/2023 Assessment & Plan (04/13/2023 11:09 AM CDT): Chronic stable hypertension. Continue metoprolol. Assessment & Plan (03/11/2023 1:04 PM CDT): Impression: Chronic stable hypertension. Plan: Continue metoprolol. Mixed hyperlipidemia 03/11/2023 Assessment & Plan (04/13/2023 11:09 AM CDT): Hyperlipidemia chronic and controlled. Continue Lipitor. Assessment & Plan (03/11/2023 1:03 PM CDT): Impression: Chronic stable hyperlipidemia. Plan: Continue Lipitor. Presence of left artificial knee joint 3 03/05/2023 Left ventricular systolic dysfunction 12/31/2022 VPC's (ventricular premature complexes) 06/04/20 22 Psychophysiologic insomnia 06/12/2020 DIONNE (obstructive sleep apnea) 03/13/2020 Morbid obesity with BMI of 40.0-44.9, adult /0 04/2018 Abnormal stress test 06/17/2017 Supraventricular premature beats 08/10/2014 Overview (02/05/2017): Supraventricular premature beats Osteoarthritis of knee 07/11/2013 Deafness, conductive 04/20/2011 Hearing loss 03/23/2011 ILD (interstitial lung disease) Immunizations Immunization Administration Dates Next Due Influenza, Quadrivalent, Wandy l Culture-based MDCK, Preservative Free, Antibiotic Free, Intramuscular 08/25/2019 Influenza, Trivalent, High D ose, Split, Preservative Free, Intramuscular 06/14/2018 Social History Tobacco Use Types Packs/Day Years Used Date Smoking Tobacco: Former Cigarettes Q uit: 06/17/1991 Smokeless Tobacco: Never Tobacco Cessation:Counseling Given: Not Answered Alcohol Use Standard Drinks/Week Comments No 0 (1 standard drink = 0.6 oz pur e alcohol) Sex and Gender Information Value Date Recorded Sex Assigned at Not on file Legal Sex Male 12:40 AM DISTRICT MANAGER IN TRAINING Gender Identity Not on file Sexual Orientation Not on file Last Filed Vital Signs Vital Sign Reading Time Taken Comments Blood Pressure 126/84 11/20/2024 12:05 PM DISTRICT MANAGER IN TRAINING Pulse 53 11/20/2024 12:05 PM DISTRICT MANAGER IN TRAINING Temperature 36.4 C (97.6 F) 04/28/2023 10:29 AM CDT Respiratory Rate 18 04/28/2023 10:29 AM CDT Oxygen Saturation 94% 11/20/2024 12:05 PM DISTRICT MANAGER IN TRAINING Inhaled Oxygen Concentration - - Weight 108.4 kg (239 lb) 11/20/2024 12:05 PM DISTRICT MANAGER IN TRAINING Height 170.2 cm (5' 7 ) 11/20/2024 12:05 PM DISTRICT MANAGER IN TRAINING Body Mass Index 37.43 11/20/2024 12:05 PM DISTRICT MANAGER IN TRAINING Plan of Treatment Not on file Procedures Procedure Name Priority Date/Time Associated Diagnosis Comments AUDBASE RESULTS 12/04/2024 8:52 AM DISTRICT MANAGER IN TRAINING POCT LIPID PANEL Routine 11/20/2024 12:5 8 PM DISTRICT MANAGER IN TRAINING Lipid screening from Last 3 Months Results * AudBase Results (12/04/2024 8:52 AM DISTRICT MANAGER IN TRAINING) Provider Scanning [facility] SERVICES ORDERABLES Final Result * POCT lipid panel (11/20/2024 12:58 PM DISTRICT MANAGER IN TRAINING) Cholesterol, POC 110 mg/dL HDL, POC 19 mg/dL Triglycerides, POC 73 mg/dL LDL Cholesterol POC 77 mg/dL Chol/HDL Ratio, POC 5.7 Non-HDL Cholesterol, POC 91 mg/dL Cholesterol Total, POC 110 mg/dL Capillary blood 11/20/2024 1 2:58 PM DISTRICT MANAGER IN TRAINING us Austen Lion MD POINT OF CARE TEST ORDER [place] Final Result from Last 3 Months Insurance [facility] [place] [facility] [place] [facility] MEDICARE MEDICARE [facility] [address] MEDICARE [facility] Care Teams Animation Director Relationship Specialty Start Date End Date Bennie Ramos MD PCP - General Family Medicine 08/03/22 Linda Barber, RN Registered Nurse Pulmonary Disease 05/05/23
--- OUTSIDE RECORDS SUMMARY | 2025-01-31 13:23 | XMS_ITS | Clinical Summary ---
Author Organization [facility] [employer] Address [address] [place] [address] Care Team Providers Care Decision Support Analyst Name Role Phone Bennie Ramos Primary Care Provider Unavailabl e Source Comments [facility] [employer],non-owned Affiliates and Associated Physician Practices is amultiple site organization consisting of ambulatory clinics and hospital sitesin [place], [place], [place] and [place]. This disclosure is being madepursuant to the Care Everywhere program and may not contain all information available regarding this patient. Last updated 18.[facility] [employer] Allergies Active Allergy Reactions Criticality Noted Date Comments Codeine Nausea and/or Vomiting,Other Low 022 Reaction: Medications * Be aware that medications may not be up to date on this document. Alwaysverify current medications with the patient. Medication Sig Dispensed Refills Start Date End Date Status metoprolol succinate XL 24hr (TOPROL XL) 25 MG tablet Take 1 (one) tablet by mouth once daily 07/14/2021 Active atorvastatin (LIPITOR) 20 MG tablet Take 1 (one) tablet by mouth once daily 04/15/2021 Active omeprazole (PriLOSEC) 40 MG capsule Take 1 (one) capsule by mouth once daily 06/04/2022 Active spironolactone (Aldactone) 25 MG tablet Take 1 (one) tablet by mouth once daily 07/02/2022 Active irbesartan (Avapro) 300 MG tablet Take 1 (one) tablet by mouth once daily 09/26/2022 Active tamsulosin (Flomax) 0.4 MG capsule Take 1 (one) capsule by mouth once daily 01/12/2024 Active atorvastatin (Lipitor) 40 MG tablet Take 1 (one) tablet by mouth once daily 05/21/2024 Active traZODone (Desyrel) 150 MG tablet TAKE 1 TABLET BY MOUTH EVERY DAY AT BEDTIME NEEDED FOR SLEEP DUE FOR APPOINTMENT 10/02/2024 Active albuterol HFA (Proventil; Ventolin; Proair) 108 (90 Base) MCG/ACT inhaler INHALE 2 PUFFS EVERY 4 HOURS NEEDED FOR WHEEZE OR FOR SHORTNESS OF BREATH 10/09/2024 Active acetaminophen (Tylenol) 500 MG capsule Take 2 (two) capsules by mouth 3 times daily Take for ten days then as needed. 12/11/2024 Active oxyCODONE, immediate release, (Roxicodone) 10 MG tabletIndications: Postoperative pain Take 0.5 (one-half) tablet to 1 (one) tablet by mouth every 4 hours as needed for Pain 42 tablet 12/12/2024 Active aspirin (Aspirin) 81 MG chew tablet Take 1 (one) tablet by mouth 2 times daily for 42 days Then resume daily dose. 12/11/2024 01/22/2025 celecoxib (CeleBREX) 200 MG capsule Take 1 (one) capsule by mouth 2 times daily for 42 days 84 capsule 12/11/2024 01/23/2025 Active Problems Problem Noted Date Diagnosed Date Presence of left artificial knee joint 3 Left ventricular systolic dysfunction 12/31/2022 VPC's (ventricular premature complexes) 06/04/20 22 Primary osteoarthritis of right knee 03/18/2022 Psychophysiologic insomnia 06/12/2020 DIONNE (obstructive sleep apnea) 03/13/2020 Encounters Date Type Department Care Team Description 01/22/2025 2:20 PM CDT Office Visit [facility] [address] [place] [phone] Wayne Fitzpatrick MD Primary osteoarthritis of right knee (Primary Dx) 01/22/2025 2:15 PM CDT Ancillary Procedure [facility] - Radiology [address] [place] [phone] Wayne Fitzpatrick MD Primary osteoarthritis of right knee 01/04/2025 11:40 AM APPLICATIONS SYSTEM ANALYST Office Visit [facility] [address] [place] [phone] Mark Parr PA-C Aftercare following right knee joint replacement surgery (Primary Dx) 12/22/2024 Telephone [facility] [address] [facility], [facility] [address] [place] [phone] Wayne Fitzpatrick MD [facility] 12/21/2024 Telephone [facility] [address] [facility], [facility] [address] [place] [phone] Wayne Fitzpatrick MD [facility] 12/20/2024 Telephone [facility] [phone] [place] [address], [facility] [address] [place] [phone] Wayne Fitzpatrick MD Post Op Call; Home Health; Physical Therapy 12/11/2024 10:33 AM APPLICATIONS SYSTEM ANALYST Anesthesia Event [facility] - Perioperative Surgery [address] [place] [phone] Dwight Deluca, Tyson Gates, OXYGRAPH OPERATOR-BUYER TOBACCO HEAD 12/11/2024 9:53 AM APPLICATIONS SYSTEM ANALYST - 12/11/2024 12:11 PM APPLICATIONS SYSTEM ANALYST Surgery [facility] - Perioperative Surgery [address] [place] [phone] Wayne Fitzpatrick MD RIGHT TOTAL KNEE ARTHROPLASTY 12/11/2024 8:32 AM APPLICATIONS SYSTEM ANALYST - 12/12/2024 6:00 PM APPLICATIONS SYSTEM ANALYST Hospital Encounter [facility] [address] [place] [phone] Wayne Fitzpatrick MD Surgery General Discharge Disposition: Home or Self Care 12/11/2024 Refill [facility] [address] [place] [phone] Wayne Fitzpatrick MD MEDICATION REFILL 12/11/2024 Travel 12/08/[address], [facility] [address] [place] [phone] Wayne Fitzpatrick MD Question 11/02/2024 10:08 AM APPLICATIONS SYSTEM ANALYST - 11/02/2024 11:59 PM APPLICATIONS SYSTEM ANALYST Hospital Encounter [facility] [address] [place] [address] [address] [place] [address] Wayne Fitzpatrick MD Discharge Disposition: Home or Self Care 11/02/2024 Travel from Last 3 Months Social History Tobacco Use Types Packs/Day Years Used Date Smoking Tobacco: Former Cigarettes Q uit: 1994 Smokeless Tobacco: Never Tobacco Cessation:Counseling Given: Not Answered Alcohol Use Standard Drinks/Week Comments Not Currently 0 (1 standard drink = 0.6 oz pur e alcohol) AUDIT-C Answer Date Recorded Q1: How often do you have a drink containing alcohol? Never 12/12/2024 Q2: How many drinks containi ng alcohol do you have on a typical day when you are drinking? Patient does not drink Q3: How often do you have si x or more drinks on one occasion? Never 12/12/2024 Overall Financial Resource Strain (CARDIA) Answe r Date Recorded How hard is it for you to pa y for the very basics like food, housing, medical care, and heating? Not hard at all 12/12/2024 PHQ-2 Answer Date Recorded Patient Health Questionnaire-2 Score 3 12/30/2023 [facility] - Occupational Stress Questionnaire Answer Date Recorded Do you feel stress - tense, restless, nervous, or anxious, or unable to sleep at night because your mind is troubled all the time - these days? Not at all 12/12/2024 Hunger Vital Sign Answer Date Recorded Within the past 12 months, y ou worried that your food would run out before you got the money to buy more. Never true 12/12/19 25 Within the past 12 months, t he food you bought just didn't last and you didn't have money to get more. Never true 12/12/2024 PRAPARE - Transportation Answer Date Re corded In the past 12 months, has l ack of transportation kept you from medical appointments or from getting medications? No 12/02 In the past 12 months, has l ack of transportation kept you from meetings, work, or from getting things needed for daily living? No 12/12/2024 Housing Stability Vital Sign Answer Bill e Recorded In the last 12 months, was t here a time when you were not able to pay the mortgage or rent on time? No 12/12/2024 In the past 12 months, how m any times have you moved where you were living? 1 12/12/2024 At any time in the past 12 m [facility], were you homeless or living in a fci (including now)? No 12/12/2024 Sex and Gender Information Value Date Recorded Sex Assigned at Not on file Gender Identity Not on file Sexual Orientation Not on file Last Filed Vital Signs Vital Sign Reading Time Taken Comments Blood Pressure 136/67 12/12/2024 12:50 PM APPLICATIONS SYSTEM ANALYST Pulse 72 12/12/2024 12:50 PM APPLICATIONS SYSTEM ANALYST Temperature 36.4 C (97.5 F) 12/12/2024 12:50 PM APPLICATIONS SYSTEM ANALYST Respiratory Rate 18 12/12/2024 12:51 PM APPLICATIONS SYSTEM ANALYST Oxygen Saturation 93% 12/12/2024 12:50 PM APPLICATIONS SYSTEM ANALYST Inhaled Oxygen Concentration 21% 12/12/2024 3 :01 PM APPLICATIONS SYSTEM ANALYST Weight 107.5 kg (237 lb) 12/11/2024 8:53 AM APPLICATIONS SYSTEM ANALYST Height 175.3 cm (5' 9 ) 12/11/2024 8:53 AM APPLICATIONS SYSTEM ANALYST Body Mass Index 35 12/11/2024 8:53 AM APPLICATIONS SYSTEM ANALYST Plan of Treatment Health Maintenance Due Date Last Done Comments COLOGUARD (AGES 45-75) - COL ON CA SCREENING 1952 COLON MONITORING 1952 COLONOSCOPY - COLON CA SCREENING 1952 CT COLONOGRAPHY - COLON CA SCREENING 1952 Colorectal Cancer Screening 1952 FIT - COLON CA SCREENING 1952 FLEX SIG - COLON CA SCREENING 1952 MEDICARE AWV 12 MONTHS 1952 HEPATITIS C SCREENING 09/09/1970 DTAP/TDAP/TD VACCINES (1 - Tdap) 1971 PNEUMOCOCCAL VACCINE 50+ (1 of 2 - PCV) 1971 ZOSTER VACCINE (1 of 2) 2002 Respiratory Syncytial Virus (RSV) Vaccine Pt: or over 60 yrs (1 - Risk 60-74 years 1-dose series) 2012 AAA SCREENING 2017 COVID-19 VACCINE (1 - 2023-2 5 season) 2024 DEPRESSION SCREENING 11/01/2024 INFLUENZA VACCINE (Season Ended) 2025 08/25/2019, 06/14/2018 HEPATITIS B VACCINE Aged Out No longe r eligible based on patient's age to complete this topic HIB VACCINE Aged Out No longer eligi ble based on patient's age to complete this topic HPV VACCINE Aged Out No longer eligi ble based on patient's age to complete this topic MENINGOCOCCAL (Group B) VACCINE SHARED DECISION-MAKING Aged Out No longer eligible based on patient's age to complete this topic MENINGOCOCCAL GROUPS A/C/Y/W VACCINE Aged Out No longer eligible b ased on patient's age to complete this topic Medical Devices Implanted Type Area Paint Roller Covermaker Device Identifier Shelf Expiration Date Model / Serial / Lot Tray Tib 79mm Kn Cocr I Beam Implanted:Qty: 1 on 12/11/2024 by Wayne Fitzpatrick MD at [facility] Right: Knee [employer] 09/05/2034 [id number] / / [id number] Cmpnt Fem Kn Rt Cr Cmnt Prm Vngrd Intlk Implanted:Qty: 1 on 12/11/2024 by Wayne Fitzpatrick MD at [facility] Right: Knee [employer] 09/12/2034 [id number] / / [id number] Cmpnt Ptlr Std 31mm 3 Pg Kn Ser A Implanted:Qty: 1 on 12/11/2024 by Wayne Fitzpatrick MD at [facility] Right: Knee [employer] 10/09/2029 [id number] / / [id number] Brng 75e82ad Vngrd Vivacit-E Kn Ant Stab Implanted:Qty: 1 on 12/11/2024 by Wayne Fitzpatrick MD at [facility] Right: Knee [employer] 01/13/2026 [id number] / / [id number] Cmnt Bone Plc R 40gm Grn Implanted:Qty: 2 on 12/11/2024 by Wayne Fitzpatrick MD at [facility] Right: Knee [employer] 02/06/2027 [id number] / / [id number] Procedures Procedure Name Priority Date/Time Associated Diagnosis Comments XR KNEE RIGHT 3VW Routine 01/22/2025 2:2 1 PM CDT Primary osteoarthritis of right knee IMAGING/RADIOLOGY/XR AY RESULTS ORDER 12/15/2024 9:32 PM APPLICATIONS SYSTEM ANALYST GLUCOSE - POINT OF CARE Routine 12/12/2024 4:48 PM APPLICATIONS SYSTEM ANALYST URINALYSIS REFLEX MICROSCOPIC REFLEX CULTURE SILVANO 12/12/2024 4:31 PM APPLICATIONS SYSTEM ANALYST GLUCOSE - POINT OF CARE Routine 12/12/2024 12:46 PM APPLICATIONS SYSTEM ANALYST HOME O2 EVAL (DESATURATION SCREEN) SILVANO 12/12/2024 11:55 AM APPLICATIONS SYSTEM ANALYST GLUCOSE - POINT OF CARE Routine 12/11/2024 11:04 PM APPLICATIONS SYSTEM ANALYST GLUCOSE - POINT OF CARE Routine 12/11/2024 5:31 PM APPLICATIONS SYSTEM ANALYST GLUCOSE - POINT OF CARE Routine 12/11/2024 1:37 PM APPLICATIONS SYSTEM ANALYST NEURAXIAL BLOCK Routine 12/11/2024 11:08 AM APPLICATIONS SYSTEM ANALYST MS TOTAL KNEE REPLACEMENT 12/11/2024 10:08 AM APPLICATIONS SYSTEM ANALYST Special Needs BIOMET (SHANE) NOTIFIED- [place] GLUCOSE - POINT OF CARE Routine 12/11/2024 9:17 AM APPLICATIONS SYSTEM ANALYST HEMOGLOBIN A1C STAT 11/02/2024 11:04 AM APPLICATIONS SYSTEM ANALYST Preop examination COMPREHENSIVE METABOLIC PANEL STAT 11/02/2024 11:04 AM APPLICATIONS SYSTEM ANALYST Preop examination CBC W AUTO DIFFERENTIAL STAT 11/02/2024 11:04 AM APPLICATIONS SYSTEM ANALYST Preop examination EKG 12-LEAD Routine 11/02/2024 11:00 AM APPLICATIONS SYSTEM ANALYST Preop examination from Last 3 Months Results * XR Knee Right 3Vw (01/22/2025 2:21 PM CDT) Narrative [facility] [place] [address] - 01/22/2025 2:21 PM CDT Please see progress note in Epic for results. Wayne Fitzpatrick MD DIAGNOSTIC IMAGING O RDERABLES [facility] [address] * IMAGING RADIOLOGY XRAY RESULTS ORDER (12/15/2024 9:32 PM APPLICATIONS SYSTEM ANALYST) Anatomical Region Laterality Modality Other Narrative 12/15/2024 9:32 PM APPLICATIONS SYSTEM ANALYST Ordered by an unspecified provider. Scanned Document IMAGING * (ABNORMAL) GLUCOSE - POINT OF CARE (12/12/2024 4:48 PM APPLICATIONS SYSTEM ANALYST) Only the most recent of6 resultswithin the time period is included. Glucose WB/POC 117(H) 70 - 99 mg/dL 12/12/2024 4:49 PM APPLICATIONS SYSTEM ANALYST [facility] Specimen Type Cap Fingerstick 2024 4:49 PM APPLICATIONS SYSTEM ANALYST [facility] Blood BLOOD SPECIMEN / Unknown 12/12/2024 4:48 PM APPLICATIONS SYSTEM ANALYST 12/12/2024 4:48 PM APPLICATIONS SYSTEM ANALYST Wayne Fitzpatrick MD LAB - POINT OF CARE ORDERABLES [facility] [address] [place] [address] * (ABNORMAL) URINALYSIS REFLEX MICROSCOPIC REFLEX CULTURE (12/12/2024 4:31 PM APPLICATIONS SYSTEM ANALYST) Color UA Colorless(A ) Yellow, Straw 12/12/2024 5:04 PM APPLICATIONS SYSTEM ANALYST [facility] Clarity UA Clear Clear 12/12/2024 5:04 PM APPLICATIONS SYSTEM ANALYST [facility] Glucose UA Normal Normal 12/12/2024 5:04 PM APPLICATIONS SYSTEM ANALYST [facility] Bilirubin UA Negative Negative 12/12/2024 5:04 PM APPLICATIONS SYSTEM ANALYST [facility] Ketone UA Negative Negative 12/12/2024 5:04 PM APPLICATIONS SYSTEM ANALYST [facility] Specific [place] UA 1.005 1.005 - 1.030 12/12/2024 5:04 PM APPLICATIONS SYSTEM ANALYST [facility] Blood UA 3+(A) Negative 12/12/2024 5:04 PM APPLICATIONS SYSTEM ANALYST [facility] pH UA 5.0 5.0 - 9.0 pH 12/12/2024 5:04 PM APPLICATIONS SYSTEM ANALYST [facility] Protein UA Negative Negative 12/12/2024 5:04 PM APPLICATIONS SYSTEM ANALYST [facility] Urobilinogen UA Normal Normal mg/dL 12/12/2024 5:04 PM APPLICATIONS SYSTEM ANALYST [facility] Nitrite UA Negative Negative 12/12/2024 5:04 PM APPLICATIONS SYSTEM ANALYST [facility] Leukocyte UA Negative Negative 12/12/2024 5:04 PM APPLICATIONS SYSTEM ANALYST [facility] RBC UA 21-50(A) 0 - 5 # /hpf 12/12/2024 5:04 PM APPLICATIONS SYSTEM ANALYST [facility] WBC UA 0-5 0 - 5 # /hpf 12/12/2024 5:04 PM APPLICATIONS SYSTEM ANALYST [facility] Bacteria UA Trace(A) None Seen 12/12/2024 5:04 PM APPLICATIONS SYSTEM ANALYST [facility] Squamous Epithelial Cells None Seen 0 - 5 /hpf 12/12/2024 5:04 PM APPLICATIONS SYSTEM ANALYST [facility] Mucus UA 1+ /LPF 12/12/2024 5:04 PM APPLICATIONS SYSTEM ANALYST [facility] Urine URINE SPECIMEN OBTAINED BY CLEAN CATCH PROCEDURE / Unknown Collection / Unknown 12/12/2024 4:31 PM APPLICATIONS SYSTEM ANALYST 12/12/2024 4:45 PM APPLICATIONS SYSTEM ANALYST Narrative [facility] - 12/12/2024 5:04 PM APPLICATIONS SYSTEM ANALYST Harriet Elias MD LAB - URINALYSIS ORDERABLES [facility] [address] [place] [address] * Neuraxial Block (12/11/2024 11:08 AM APPLICATIONS SYSTEM ANALYST) Narrative Tyson Hutchinson, DAVE-BUYER TOBACCO HEAD - 12/11/2024 11:08 AM APPLICATIONS SYSTEM ANALYST Tyson Hutchinson, DAVE-BUYER TOBACCO HEAD 12/11/2024 11:09 AM Neuraxial Block Note Pre-Procedure: Procedure Name: Neuraxial Block Patient Location: OR Indications: surgical anesthesia Pre-Anesthetic Checklist: Patient identified, IV Checked, Risks and benefits discussed, Surgical consent verified, Monitors and equipment, Site examined, Pre-op evaluation done, Informed consent obtained, Questions answered/anesthesia questions answered and Allergies reviewed Anticoagulation/ Anti-thrombosis status confirmed? Yes Supplemental O2: room air Monitors: BP and continuous pluse ox Patient Condition: sedated, meaningful contact maintained throughout procedure Patient Sedated? Nursing sedation administration Sedation Type: mild Sedation Agents (manual): versed mL Procedure: Block Type: Spinal Prep: Betadine Sterile Field: mask, sterile established, sterile gloves and cap/hat Approach: left paramedian Skin was localized? Nursing documentation on MAR Skin localized with: Lidocaine 1% and 1 mL Spinal Block: Needle Type: spinal needle Needle Gauge: 22 Needle Length: 90 mm Placement Site: L3-4 Number of Attempts: 1 CSF: free flow, aspiration before injection Local anesthetics used? Nursing documentation on the MAR Spinal Local Anesthetic: Bupivacaine: 0.75% in dextrose 2 mL Degree of difficulty: none Procedure Tolerance: tolerated well performed while the patient was sedated Sensory Level: lower level Motor Blockade: Yes Position post procedure: supine Vital Signs: Vital signs monitored and stable throughout. See anesthesia record for details. Start Time: 12/11/2024 10:33 AM End Time: 12/11/2024 10:42 AM Total Time: 9 Staff: Anesthesia Provider: Tyson Hutchinson APRN-BUYER TOBACCO HEAD - performed the procedure Dwight Deluca DO GENERAL ANESTHESIA O RDERABLES * (ABNORMAL) HEMOGLOBIN A1C (11/02/2024 11:04 AM APPLICATIONS SYSTEM ANALYST) Hemoglobin A1c 6.1(H) <5.7 % 11/02/2024 11:22 AM APPLICATIONS SYSTEM ANALYST [facility] Estimated Average Glucose 128 mg/dL 11/02/2024 11:22 AM APPLICATIONS SYSTEM ANALYST [facility] Blood BLOOD SPECIMEN / Unknown Venipuncture / Unknown 11/02/2024 11:04 AM APPLICATIONS SYSTEM ANALYST 11/02/2024 11:12 AM APPLICATIONS SYSTEM ANALYST [facility] - 11/02/2024 11:22 AM APPLICATIONS SYSTEM ANALYST HbA1c Interpretation: Normal: < 5.7% Pre-diabetes: 5.7-6.4% Diabetes: Equal to or greater than 6.5% Test results diagnostic of diabetes should be repeated for confirmation. Treatment target values recommended by ADA and other clinical organizations should be used to evaluate metabolic control in patients. This test should not replace glucose testing for patients with Type 1 diabetes, pediatric patients, or women. Falsely low HbA1c results may be observed in patients with clinical conditions that shorten erythrocyte life span or decrease mean erythrocyte age such as the presence of unstable hemoglobin variants, elevated hemoglobin F level or other causes of hemolytic anemia. HbA1c may not accurately reflect glycemic control when clinical conditions that affect erythrocyte survival are present. Severe Iron deficiency anemia may yield falsely high results. Hemoglobin A1c assay should not be used to diagnose or monitor diabetes in patients with malignancy, recent blood transfusion, chronic kidney or liver disease. This method may yield falsely low results when hemoglobin (HbF) exceeds 5% in the specimen. The Martinez Alinity assay for the measurement of HbA1c is a National Glycohemoglobin Standardization Program (NGSP) certified method. Linda Nazariolonny OXYGRAPH OPERATOR-AUTOMATIC FANCY MACHINE OPERATOR LAB - CHEMI STRY ORDERABLES [facility] [address] [place] [address] * (ABNORMAL) CBC W AUTO DIFFERENTIAL (11/02/2024 11:04 AM APPLICATIONS SYSTEM ANALYST) [facility] WBC 7.4 4.0 - 10.7 x10E9/L 11/02/2024 11:17 AM [facility] RBC Count 5.19 4.30 - 5.80 x10E12/L 11/02/2024 11:17 AM [facility] Hemoglobin 14.8 13.3 - 17.5 g/dL 11/02/2024 11:17 AM [facility] Hematocrit 46.8 38.7 - 51.1 % 11/02/2024 11:17 AM [facility] MCV 90.2 80.0 - 98.0 fL 11/02/2024 11:17 AM [facility] MCH 28.5 26.7 - 33.6 pg 11/02/2024 11:17 AM [facility] MCHC 31.6(L) 31.7 - 36.3 g/dL 11/02/2024 11:17 AM [facility] RDW-CV 13.4 11.3 - 14.8 % 11/02/2024 11:17 AM [facility] Platelet Count 187 150 - 420 x10E9/L 11/02/2024 11:17 AM [facility] MPV 11.0 7.8 - 11.4 fL 11/02/2024 11:17 AM [facility] Neutrophil % 71.7 41.0 - 74.0 % 11/02/2024 11:17 AM [facility] Lymphocyte % 14.5(L) 17.0 - 47.0 % 11/02/2024 11:17 AM [facility] Monocyte % 9.9 3.0 - 11.0 % 11/02/2024 11:17 AM [facility] Eosinophil % 3.5 0.0 - 7.0 % 11/02/2024 11:17 AM [facility] Basophil % 0.1 0.0 - 1.6 % 11/02/2024 11:17 AM [facility] Immature Granulocytes % 0.3 0.0 - 1.0 % 11/02/2024 11:17 AM [facility] Neutrophil Absolute 5.31 1.60 - 7.50 x10E9/L 11/02/2024 11:17 AM [facility] Lymphocyte Absolute 1.07 1.00 - 4.40 x10E9/L 11/02/2024 11:17 AM [facility] Monocyte Absolute 0.73 0.15 - 1.00 x10E9/L 11/02/2024 11:17 AM [facility] Eosinophil Absolute 0.26 0.00 - 0.60 x10E9/L 11/02/2024 11:17 AM [facility] Basophil Absolute 0.01 0.00 - 0.13 x10E9/L 11/02/2024 11:17 AM [facility] Blood BLOOD SPECIMEN / Unknown Venipuncture / Unknown 11/02/2024 11:04 AM [facility] 11/02/2024 11:12 AM [facility] Linda Michelle OXYGRAPH OPERATOR-AUTOMATIC FANCY MACHINE OPERATOR LAB - HEMAT OLOGY ORDERABLES [facility] [address] [place] [address] * (ABNORMAL) COMPREHENSIVE METABOLIC PANEL (11/02/2024 11:04 AM [facility]) [facility] Glucose 122(H) 70 - 99 mg/dL 11/02/2024 11:29 AM [facility] Sodium 140 136 - 145 mmol/L 11/02/2024 11:29 AM [facility] Potassium 4.1 3.5 - 5.1 mmol/L 11/02/2024 11:29 AM [facility] Chloride 102 98 - 107 mmol/L 11/02/2024 11:29 AM [facility] CO2 31(H) 22 - 29 mmol/L 11/02/2024 11:29 AM [facility] Calcium 9.8 8.4 - 10.4 mg/dL 11/02/2024 11:29 AM [facility] Anion Gap 7 6 - 16 mmol/L 11/02/2024 11:29 AM [facility] BUN 16 7 - 26 mg/dL 11/02/2024 11:29 AM [facility] Creatinine 0.91 0.72 - 1.25 mg/dL 11/02/2024 11:29 AM [facility] Alkaline Phosphatase 79 40 - 150 U/L 11/02/2024 11:29 AM [facility] ALT 23 0 - 55 U/L 11/02/2024 11:29 AM [facility] AST 18 5 - 34 U/L 11/02/2024 11:29 AM [facility] Protein Total 6.9 6.4 - 8.3 gm/dL 11/02/2024 11:29 AM [facility] Albumin 3.6 3.4 - 5.0 gm/dL 11/02/2024 11:29 AM [facility] Bilirubin Total 0.7 0.2 - 1.2 mg/dL 11/02/2024 11:29 AM [facility] eGFR by CKD-EPI 90 >=90 mL/min/1.7 3 m2 11/02/2024 11:29 AM [facility] Blood BLOOD SPECIMEN / Unknown Venipuncture / Unknown 11/02/2024 11:04 AM [facility] 11/02/2024 11:12 AM [facility] Linda Martinez OXYGRAPH OPERATOR-AUTOMATIC FANCY MACHINE OPERATOR LAB - CHEMI STRY ORDERABLES [facility] [address] [place] [address] * EKG 12-LEAD (11/02/2024 11:00 AM [facility] [place]) Ventricular Rate 61 BPM [facility] Atrial Rate 61 BPM [facility] P-R Interval 200 ms [facility] QRS Duration ms 116 ms [facility] Q-T Interval ms 402 ms [facility] QTC Calculation (Bezet) 404 ms [facility] Calculated P [place] 42 degrees [facility] Calculated R [place] -21 degrees [facility] Calculated T [place] 81 degrees [facility] Interpretation EKG Normal sinus rhythm Left ventricular hypertrophy with QRS widening ( R in aVL , Dandy product ) Nonspecific T wave abnormality Abnormal ECG Confirmed by IZZY PITTS MD ([id number]) on 11/02/2024 10:28:53 PM [facility] MUSE 11/02/2024 11:0 0 AM APPLICATIONS SYSTEM ANALYST 11/02/2024 10:28 PM APPLICATIONS SYSTEM ANALYST Dwight Deluca DO ECG ORDERABLES [facility] MUSE from Last 3 Months Advance Directives * Full Code (Latest Code Status on File) Date Activated Date Inactivated Comments 12/11/2024 2:43 PM 12/12/2024 7:10 PM Care Teams Decision Support Analyst Relationship Specialty Start Date End Date Bennie Ramos PCP - General 11/02/24
--- OUTSIDE RECORDS SUMMARY | 2025-01-31 13:23 | XMS_ITS | Continuity of Care Document ---
Author Organization [facility] Address [address] [place] [address] Phone Care Team Providers Care Teacher Of The Hearing Impaired Name Role Phone Jaylan WILBURN, Harshal Unavailable Unavailable Allergies, Adverse Reactions, Alerts Substance Reaction Status Criticality hydrocodone GI Problems Active No Information cimetidine HivesHives Active No Information hydrocodone GI Problems(moderate) Active No Inf ormation CIMETIDINE HCL Hives(moderate)Hives(moderate) Active No Information cimetidine Hives(moderate)Hives(moderate) Active No Information Medications Medication Instructions Dosage Effective Dates (start - stop) Status Comments Aspirin Low Dose 81 mg tablet,delayed release take 1 tablet by oral route every day 81 MG - Active colchicine 0.6 mg tablet take 1 tablet by oral route every day 0.6 MG - Active Dialyvite 800 0.8 mg tablet take 1 tablet by oral route every for 1 day 1 tablet - Active atorvastatin 40 mg tablet take 1 tablet by oral route every day 40 MG - Active lisinopril 40 mg tablet take 1 tablet by oral route every day 40 MG - Active metoprolol tartrate 50 mg tablet take 1 tablet by oral route 2 times every day with meals 50 MG - Active telmisartan 80 mg tablet take 1 tablet by oral route every day 80 MG - Active ginkgo biloba 40 mg tablet - Active Lasix 40 mg tablet take 1 tablet by oral route every day 40 MG - Active calcium acetate 668 mg (169 mg calcium) tablet - Active levetiracetam 500 mg tablet take 1 tablet by oral route 2 times every day 500 MG - Active Novolog U-100 Insulin aspart 100 unit/mL subcutaneous solution inject 9 units by subcutaneous route every evening 9 units - Active Coromega 284 mg-850 mg/2.5 gram oral packet - Active Velphoro 500 mg chewable tablet chew 1 tablet by oral route 3 times every day with meals 500 MG - Active ASPIRIN (unknown strength) chew 1 tablet by oral route every day Not Available - Active atorvastatin 40 mg tablet take 1 tablet by oral route every day 40 MG - Active calcium acetate 668 mg (169 mg calcium) tablet - Active 2 with meals colchicine 0.6 mg capsule take 1 capsule by oral route every day 0.6 MG - Active Coromega 284 mg-850 mg/2.5 gram oral packet - Active 1 a day DIALYVITE 800 0.8 mg tablet take 1 by Oral route once Daily 1 - Active 1 a day ginkgo biloba 40 mg tablet - Active 1 a day levetiracetam 500 mg tablet take 1 tablet by oral route 2 times every day 500 MG - Active lisinopril 40 mg tablet take 1 tablet by oral route every day 40 MG - Active metoprolol tartrate 50 mg tablet take 1 tablet by oral route every day with meals 50 MG - Active telmisartan 80 mg tablet take 1 tablet by oral route every day 80 MG - Active Novolog 100 unit/mL subcutaneous solution inject by Subcutaneous route as per insulin sliding scale protocol Not Available - Active Procedures Procedure Date ANESTH, DX ARTERIOGRAPHY SPECIAL ANESTHESIA SERVICE CONTRAST, 300/ML, PER ML Radiation Exposure Documented To Be Coded Cath/angio dialcir w/aplasty Intro cath dialysis circuit Balo angiop ctr dialysis seg CONTRAST, 300/ML, PER ML MOD SED BY OR SUP BY PHYSICIAN INTRO CATH DIALYSIS CIRCUIT To Be Coded INTRO CATH DIALYSIS CIRCUIT [facility] ANGIOP CTR DIALYSIS SEG INTRO CATH DIALYSIS CIRCUIT BALO ANGIOP CTR DIALYSIS SEG MOD SED SAME PHYS/QHP 5/>YRS OFFICE/OUTPATIENT VISIT, EST To Be Coded OFFICE/OUTPATIENT VISIT, EST To Be Coded CONTRAST, 300/ML, PER ML MOD SED BY OR SUP BY PHYSICIAN INTRO CATH DIALYSIS CIRCUIT Radiation Exposure Documented To Be Coded CONTRAST, 300/ML, PER ML MOD SED BY OR SUP BY PHYSICIAN INTRO CATH DIALYSIS CIRCUIT Radiation Exposure Documented To Be Coded CONTRAST, 300/ML, PER ML MOD SED BY OR SUP BY PHYSICIAN INTRO CATH DIALYSIS CIRCUIT Radiation Exposure Documented To Be Coded CONTRAST, 300/ML, PER ML INTRO CATH DIALYSIS CIRCUIT Radiation Exposure Documented To Be Coded CONTRAST, 300/ML, PER ML MOD SED BY OR SUP BY PHYSICIAN INTRO CATH DIALYSIS CIRCUIT Radiation Exposure Documented To Be Coded Advance Directives Directive Yes / No Effective Date File Name No Information Encounters Encounter Description Practice Location Reason(s) For Visit Diagnoses Date Provider Providers Copied on Encounter [facility], [address], [id number], [place] tel:[phone] [facility] No Information Sep-0 4 Franga Harshal. 121 [facility], [address] [place] [address], [id number], [place]. tel:[phone] [facility], [address] [facility] [address], [place], [address], [place] tel:[phone] [facility] Sep-0 4 Jatinder Tavares. 121 [facility], [address], [id number] , [place]. tel:[phone] Referring Provider: Delon Galloway, [address] [facility], [address], [place], [address]. tel:[phone] [facility], [facility] [address] [place] [address], [id number], [place] tel:[phone] [facility] Sep-0 4 Franga Harshal. [address] [facility], [address], [place], [address], [place]. tel:[phone] Referring Provider: Delon Galloway, [address] [facility], [address], [place], [address]. tel:[phone] [facility] [address] [place] [address], [id number], [place] tel:[phone] [facility] Sep-0 4 Franga Harshal. 121 [facility], [address], [place], [address], [place]. tel:[phone] Referring Provider: Delon Galloway, [address] [facility], [place], [address]. tel:[phone] [facility], [address] [place] [address], [id number], [place] tel:[phone] [place] [address] Compression of VeinOther complications due to renal dialysis device, implant, and graftEnd stage renal disease Sep-0 9 [address] [place], [place], [id number] , [place]. tel:[phone] Referring Provider: Cayetano Mcnulty, [address], [place], [address]. tel:[phone] [facility], [address] [place] [address], [id number], [place] tel:[phone] [address] [place] [address] No Information [address] [facility] [place], [place], [id number] , [place]. tel:[phone] Referring Provider: Cayetano Mcnulty, [address], [place], [address]. tel:[phone] [facility], [address] [place] [address], [id number], [place] tel:[phone] [place] [address] No Information 9 [address] [place] [address], [id number] , [place]. [phone] OFFICE/OUTPA TIENT VISIT, EST [facility], [address] [place] [address], [id number], [place] tel:[phone] [address] [place] [address] End stage renal disease Apr-2 9 Bhaskar León. [address] [facility], [address], [place], [address], [place]. tel:[phone] Referring Provider: Cayetano Mcnulty, [address] [address], [place], [address]. tel:[phone] OFFICE/OUTPA TIENT VISIT, EST [facility], [address] [place] [address], [id number], [place] tel:[phone] [facility] End stage renal diseaseEnd stage renal disease 8 [address] [place] [address], [id number] , [place]. tel:[phone] Referring Provider: Cayetano Mcnulty, [address] [address], [place], [address]. tel:[phone] [facility], [address] [place] [address], [id number], [place] tel:[phone] [facility] Compression of VeinOther complications due to renal dialysis device, implant, and graftEnd stage renal disease [facility]. [address] [place] [address], [id number] , [place]. tel:[phone] Referring Provider: Cayetano Mcnulty, [address] [address], [place], [address]. tel:[phone] [facility], [address] [place] [address], [id number], [place] tel:[phone] [facility] Compression of VeinOther complications due to renal dialysis device, implant, and graftEnd stage renal disease 8 [address] [place] [address], [id number] , [place]. tel:[phone] Referring Provider: Cayetano Mcnulty, [address] [address], [place], [address]. tel:[phone] [facility], [address] [place] [address], [id number], [place] tel:[phone] [facility] Other complications due to renal dialysis device, implant, and graftEnd stage renal disease 8 [address] [place], [place], [id number] , [place]. tel:[phone] Referring Provider: Cayetano Mcnulty, [address] [address], [place], [address]. tel:[phone] [facility], [address] [place] [address], [id number], tel:[phone] [facility] Compression of VeinOther complications due to renal dialysis device, implant, and graftEnd stage renal disease 7 Rosas Ariane. [address] [address], [place], [place], [id number] , [place]. tel:[phone] Referring Provider: Cayetano Mcnulty, [address] [address], [place], [address]. tel:[phone] [facility], [address] [place] [address], [id number], [place] tel:[phone] [facility] Compression of VeinOther complications due to renal dialysis device, implant, and graftEnd stage renal disease 7 Rosas Ariane. [address] [facility] , [facility] [address], [place], [id number] , [place]. tel:[phone] Referring Provider: Cayetano Mcnulty, [address] [address], [place], [address]. tel:[phone] As per patient privacy policy some of the clinical information may not be visible. Family History Family Member Type Diagnosis Age At Onset Father Problem (finding) Diabetes mellitus Problem (finding) No family history of Hu emilioington's chorea Payers Payer name Insurance type Covered alliance party ID Authoriza tion(s) Medicare [place] MB [id number] [facility] CI [id number] Social History Type Description Quantity Date Captured Comments Sex Male Smoking Status No Information Gender Identity Male Chief Complaint And Reason For Visit No Information Reason For Referral Reason For Referral No Information Plan Of Treatment Date Type Action Status Future Order: Radiology Order Up per Body Flouroscopy ([id number]), Ordered on: Ordered Future Order: Radiology Order Up per Body Flouroscopy ([id number]), Ordered on: Ordered Future Order: Radiology Order Up per Body Flouroscopy ([id number]), Ordered on: Ordered Future Order: Radiology Order Up per Body Flouroscopy ([id number]), Ordered on: Ordered Future Order: Radiology Order Up per Body Flouroscopy ([id number]), Ordered on: Ordered Future Order: Radiology Order Up per Body Flouroscopy ([id number]), Ordered on: Ordered Future Order: Radiology Order Up per Body Fluoroscopy ([id number]), Ordered on: Ordered Future Order: Radiology Order Up per Body Fluoroscopy ([id number]), Ordered on: Ordered History Of Present Illness Encounter Date Complaint History Of Prese nt Illness No Information Functional Status Date Functional Assessmen t No Information Instructions Date Instruction Additional Infor mation No Information Assessments Type Assessment Date No Information Patient Care Teams Name Effective Dates (start - stop) Status Members No Information
--- OUTSIDE RECORDS SUMMARY | 2025-01-31 13:23 | XMS_ITS | Encounter Summary ---
Author Organization [facility] Address [address] [place] [address] Phone Care Team Providers Care Finance Mgr Name Role Phone Bennie Ramos MD Primary Care Provider [phone] Linda Barber RN Unavailable Macrina vailable Encounter Details Date Type Department Care Team (Latest Contact Info) Description 10/05/2022 Orders Only [facility] Scanning, Provider Social History Tobacco Use Types Packs/Day Years Used Date Smoking Tobacco: Former Cigarettes Q uit: 06/17/1991 Smokeless Tobacco: Never Alcohol Use Standard Drinks/Week Comments No 0 (1 standard drink = 0.6 oz pur e alcohol) Sex and Gender Information Value Date Recorded Sex Assigned at Not on file Legal Sex Male 12:40 AM ART SPECIALIST Gender Identity Not on file Sexual Orientation Not on file documented as of this encounter Plan of Treatment Not on file documented as of this encounter Procedures Procedure Name Priority Date/Time Associated Diagnosis Comments SCAN - RADIOLOGY/IMAGING 10/05/2022 documented in this encounter Results * SCAN - RADIOLOGY/IMAGING (10/05/2022) Anatomical Region Laterality Modality Other us Provider Scanning Final Result documented in this encounter Visit Diagnoses Not on filedocumented in this encounter Care Teams Finance Mgr Relationship Specialty Start Date End Date Bennie Ramos MD PCP - General Family Medicine 08/03/22 Linda Barber, RN Registered Nurse Pulmonary Disease 05/05/23 documented as of this encounter
--- OUTSIDE RECORDS SUMMARY | 2025-01-31 13:23 | XMS_ITS | Continuity of Care Document ---
Author Organization [facility] Address [address] [place] [address] Phone Care Team Providers Care Senior Systems Engineer Name Role Phone Doisy, Edward Unavailable Unavailable Advance Directives Directive Yes / No Effective Date File Name No Information Encounters Encounter Description Practice Location Reason(s) For Visit Diagnoses Date Provider Providers Copied on Encounter [facility], [address], [place], [place], [id number], [place] tel:[phone] [facility] No Information Sep-1 0-200 3 Doisy Edward. [address] , [address], [place], [address], [place]. tel:[phone] Referring Provider: Zheng Frey MD [place], [address] [place] [address], [address]. tel:[phone] Family History Family Member Type Diagnosis Age At Onset No Information Payers Payer name Insurance type Covered democrat ID Authoriza tion(s) No Information Social History Type Description Quantity Date Captured Comments Sex Male Smoking Status No Information Chief Complaint And Reason For Visit No Information Reason For Referral Reason For Referral No Information History Of Present Illness Encounter Date Complaint History Of Prese nt Illness No Information Functional Status Date Functional Assessmen t No Information Instructions Date Instruction Additional Infor mation No Information Assessments Type Assessment Date No Information Patient Care Teams Name Effective Dates (start - stop) Status Members No Information
--- OUTSIDE RECORDS SUMMARY | 2025-01-31 13:23 | XMS_ITS | Encounter Summary ---
Author Organization [facility] Address [address] [place] [address] Phone Care Team Providers Care Drapery Worker Name Role Phone Bennie Ramos MD Primary Care Provider [phone] Linda Barber RN Unavailable Macrina vailable Encounter Details Date Type Department Care Team (Latest Contact Info) Description 05/13/2023 Orders Only [facility] Scanning, Provider Social History Tobacco Use Types Packs/Day Years Used Date Smoking Tobacco: Former Cigarettes Q uit: 06/17/1991 Smokeless Tobacco: Never Alcohol Use Standard Drinks/Week Comments No 0 (1 standard drink = 0.6 oz pur e alcohol) Sex and Gender Information Value Date Recorded Sex Assigned at Not on file Legal Sex Male 12:40 AM INDUSTRY SEGMENT SPECIALIST Gender Identity Not on file Sexual Orientation Not on file documented as of this encounter Plan of Treatment Not on file documented as of this encounter Procedures Procedure Name Priority Date/Time Associated Diagnosis Comments SCAN - RADIOLOGY/IMAGING 05/13/2023 documented in this encounter Results * SCAN - RADIOLOGY/IMAGING (05/13/2023) Anatomical Region Laterality Modality Other us Provider Scanning Final Result documented in this encounter Visit Diagnoses Not on filedocumented in this encounter Care Teams Drapery Worker Relationship Specialty Start Date End Date Bennie Ramos MD PCP - General Family Medicine 08/03/22 Linda Barber, RN Registered Nurse Pulmonary Disease 05/05/23 documented as of this encounter
--- OUTSIDE RECORDS SUMMARY | 2025-01-31 13:23 | XMS_ITS | Clinical Summary ---
Author Organization [facility] [address] Address [address] [place] [address] Care Team Providers Care Research Manager Name Role Phone Bennie Ramos MD Primary Care Provider [phone] Linda Barber RN Unavailable Macrina vailable Allergies Active Allergy Reactions Criticality Noted Date [...] -requesting imaging of CTA carotid performed at [facility] for evaluation. Primary hypertension 03/11/2023 Assessment & [...] dysfunction 12/31/2022 VPC's (ventricular premature complexes) 06/04/20 Psychophysiologic insomnia 06/12/2020 DIONNE (obstructive sleep apnea) 03/13/2020 Morbid obesity with BMI of 40.0-44.9, adult 04/2018 Abnormal stress test 06/17/2017 Supraventricular premature beats 08/10/2014 Overview (02/05/2017): Supraventricular premature beats Osteoarthritis of knee 07/11/2013 Deafness, conductive 04/20/2011 Hearing loss 03/23/2011 ILD (interstitial lung disease) Encounters Date Type Department Care Team Description 12/04/2024 10:00 AM HUMAN RESOURCES TALENT MANAGER Office Visit [facility]) [facility] ENT [address], [address] [place] [address] Toño Calhoun MD Mixed conductive and sensorineural hearing loss of right ear with restricted hearing of left ear (Primary Dx) 12/04/2024 9:00 AM HUMAN RESOURCES TALENT MANAGER Procedure visit [facility] Otolaryngology [address] [place] [address] Cari Woodward AuMaverick Mixed conductive and sensorineural hearing loss, bilateral (Primary Dx) 11/22/2024 Orders Only [facility] Cardiology [address] [place] [address] ProviderJefe MD 11/20/2024 11:30 AM HUMAN RESOURCES TALENT MANAGER Office Visit [facility] Cardiology at [address] [place] [address] Austen Lion MD Left ventricular systolic dysfunction (Primary Dx); Primary hypertension; Severe obesity (HCC); Lipid screening 11/09/2024 Telephone [facility] Cardiology [address] [place] [address] Austen Lion MD from Last 3 Months Immunizations Immunization Administration Dates Next Due Influenza, Quadrivalent, Wandy l Culture-based MDCK, Preservative Free, Antibiotic Free, Intramuscular 08/25/2019 Influenza, Trivalent, High D ose, Split, Preservative Free, Intramuscular 06/14/2018 Medical History Medical History Date Comments Hx Other Medical Sleep Apnea, CP AP Family History Medical History Relation Name Comments Coronary artery disease Maternal Grandfather 2 Coronary Artery Disease; Cause of : Coronary Artery Disease Heart failure Mother 2 Congestive Hea rt Failure; Cause of : Congestive Heart Failure Relation Name Status Comments Maternal Grandfather 1 (Age 72) Maternal Grandfather 2 Mother 1 (Age 88) Mother 2 Social History Tobacco Use Types Packs/Day Years Used Date Smoking Tobacco: Former Cigarettes Q uit: 06/17/1991 Smokeless Tobacco: Never Tobacco Cessation:Counseling Given: Not Answered Alcohol Use Standard Drinks/Week Comments No 0 (1 standard drink = 0.6 oz pur e alcohol) Sex and Gender Information Value Date Recorded Sex Assigned at Not on file Legal Sex Male 12:40 AM HUMAN RESOURCES TALENT MANAGER Gender Identity Not on file Sexual Orientation Not on file Obstetrics History Last Filed Vital Signs Vital Sign Reading Time Taken Comments Blood Pressure 126/84 11/20/2024 12:05 PM HUMAN RESOURCES TALENT MANAGER Pulse 53 11/20/2024 12:05 PM HUMAN RESOURCES TALENT MANAGER Temperature 36.4 C (97.6 F) 04/28/2023 10:29 AM CDT Respiratory Rate 18 04/28/2023 10:29 AM CDT Oxygen Saturation 94% 11/20/2024 12:05 PM HUMAN RESOURCES TALENT MANAGER Inhaled Oxygen Concentration - - Weight 108.4 kg (239 lb) 11/20/2024 12:05 PM HUMAN RESOURCES TALENT MANAGER Height 170.2 cm (5' 7 ) 11/20/2024 12:05 PM HUMAN RESOURCES TALENT MANAGER Body Mass Index 37.43 11/20/2024 12:05 PM HUMAN RESOURCES TALENT MANAGER Plan of Treatment Health Maintenance Due Date Last Done Comments Colon Cancer Screening-Colonoscopy 1950 Depression Screening 1952 Fall Risk Assessment 1950 Hepatitis C Screening 1950 DTaP/Tdap/Td Vaccine (1 - Tdap) 1963 Hepatitis B Screening 1970 Pneumococcal vaccine 65+ (1 of 1 - PCV) 2002 Zoster Vaccine (1 of 2) 2002 Abdominal Aortic Aneurysm (AAA) Screen 2017 Well Visit 65+ 2017 Influenza Vaccine (Season Ended) 2025 08/25/20 19, 06/14/2018 Procedures Procedure Name Priority Date/Time Associated Diagnosis Comments AUDBASE RESULTS 12/04/2024 8:52 AM HUMAN RESOURCES TALENT MANAGER POCT LIPID PANEL Routine 11/20/2024 12:5 8 PM HUMAN RESOURCES TALENT MANAGER Lipid screening from Last 3 Months Results * AudBase Results (12/04/2024 8:52 AM HUMAN RESOURCES TALENT MANAGER) Provider Scanning AUDIOLOGY SERVICES ORDERABLES Final Result * POCT lipid panel (11/20/2024 12:58 PM HUMAN RESOURCES TALENT MANAGER) Cholesterol, POC 110 mg/dL HDL, POC 19 mg/dL Triglycerides, POC 73 mg/dL LDL Cholesterol POC 77 mg/dL Chol/HDL Ratio, POC 5.7 Non-HDL Cholesterol, POC 91 mg/dL Cholesterol Total, POC 110 mg/dL Capillary blood 11/20/2024 1 2:58 PM HUMAN RESOURCES TALENT MANAGER Austen Lion MD POINT OF CARE TEST ORDER [place] Final Result from Last [address] [place] [address] [facility] MEDICARE MEDICARE [place] MEDICARE [facility] Care Teams Research Manager Relationship Specialty Start Date End Date Bennie Ramos MD PCP - General Family Medicine 08/03/22 Linda Barber, RN Registered Nurse Pulmonary Disease 05/05/23
[2025-01-31 19:49] LABS: Basophils Percent Auto 0.3 % (0.2-1.2); Eosinophils Absolute Auto 0.3 K/mm3 (0-0.3); Eosinophils Percent Auto 3.1 % (0-4.4); Hematocrit 41.8 % (42.0-52.0); Hemoglobin 13.2 g/dL (14.0-18.0); Immature Granulocyte Absolute 0.03 K/mm3 (0.00-0.031); Immature Granulocyte Percent A 0.3 % (0-0.5); Lymphocytes Absolute Auto 1.19 K/mm3 (0.9-3.2); Lymphocytes Percent Auto 13.2 % (18.3-44.2); Mean Corpuscular HGB Conc 31.6 g/dl (32-36); Mean Corpuscular Hemoglobin 29.2 pg (26-34); Mean Corpuscular Volume 92.5 fl (80-100); Mean Platelet Volume 12.3 fl (7.4-10.4); Monocytes Absolute Auto 0.9 K/mm3 (0.1-0.6); Monocytes Percent Auto 10.3 % (2.6-8.5); Neutrophils Absolute Auto 6.6 K/mm3 (1.3-6.7); Neutrophils Percent Auto 72.8 % (45.5-73.1); Platelet Count Result 222 k/mm3 (150-375); Red Blood Count 4.52 M/mm3 (4.6-6.20); Red Cell Distribution Width 15.1 % (11.5-14.5)
[2025-01-31 20:10] LABS: Alanine Aminotransferase 25 U/L (6-50); Albumin Level 3.9 g/dL (3.5-5.1); Alkaline Phosphatase 89 U/L (38-126); Anion Gap 10 mmol/L (4-12); Aspartate Amino Transferase 24 U/L (17-59); Blood Urea Nitrogen 18 mg/dL (9-20); Calcium 9.3 mg/dL (8.4-10.2); Carbon Dioxide 28 mmol/L (22-30); Chloride 101 mmol/L (98-107); Estimated Glomerular Filt Rate > 60; Glucose 75 mg/dL (65-110); Potassium 4.1 mmol/L (3.4-5.0); Sodium 139 mmol/L (137-145)
[2025-01-31 20:15] LABS: NT Pro B Type Natriuretic Pept 3080 pg/mL (19.9-100)
== END 2025-01-31 11:56 | disposition home or self-care (01) ==
LOC: ANHGOSHLAB 11:56
PROVIDERS: PCP Nurse Practitioner Family; Visit Provider Nurse Practitioner Family
DX: R06.02 Shortness of breath (principal); I50.20 Unspecified systolic (congestive) heart failure
CPT/HCPCS: 36415; 80053; 83880; 85025

== ENCOUNTER 2025-02-27 09:06 | Outpatient (CLI) | payer MEDICARE, OTHER, SELFPAY ==
--- NOTE | ~2025-02-27 | NM_ITS ---
EXAMINATION: NM tish stress w perfusion DATE: 02/27/2025 11:46 INDICATION: Shortness of breath. Unspecified systolic TECHNIQUE: Rest images were obtained following intravenous administration of 10.1 mCi Tc99m tetrofosm in (Myoview). The patient was infused intravenously with Lexiscan (Regadenoson). Then, 30.69 mCi Tc99 m tetrofosmin (Myoview) was administered intravenously, and stress images were obtained initially in the supine position with repeat post stress images obtained in the prone position. Data was reconstru cted into short axis and horizontal and vertical long axis SPECT images. Gated SPECT images were also obtained. COMPARISON: None. FINDINGS: There is no definite reversible or fixed perfusion abnormality to suggest ischemia or infar ction. There is mild left ventricular enlargement with calculated end-diastolic volume of 217 mL. Th ere is global hypokinesis with mild to moderate decreased left ventricular ejection fraction measurin g 33%. IMPRESSION: 1. Normal myocardial perfusion at rest and during stress. 2. Mild left ventricular enlargement and global hypokinesis with mild to moderately decreased ventric ular ejection fraction measuring 33%. Reviewed, dictated and finalized at location B. IMPRESSION: 1. Normal myocardial perfusion at rest and during stress. 2. Mild left ventricular enlargement and global hypokinesis with mild to modera tely decreased ventricular ejection fraction measuring 33%.
--- OUTSIDE RECORDS SUMMARY | 2025-02-27 09:46 | XMS_ITS | Referral Summary ---
Author Organization [facility] [address] Address [address] [place] [address] Care Team Providers Care Reel Assembler Name Role Phone Bennie Ramos MD Primary Care Provider [phone] Linda Barber RN Unavailable Macrina vailable Encounters Date Type Department Care Team Description 12/04/2024 10:00 AM GLUE WHEEL OPERATOR Office Visit [facility] ENT [address] 2[address] Floor, [address] [place] [address] Toño Calhoun MD Mixed conductive and sensorineural hearing loss of right ear with restricted hearing of left ear (Primary Dx) 12/04/2024 9:00 AM GLUE WHEEL OPERATOR Procedure visit [facility] Otolaryngology [address] 2nd [address] [place] [address] Cari Woodward Au.D. Mixed conductive and sensorineural hearing loss, bilateral (Primary Dx) from Last 3 Months Allergies Active Allergy Reactions Criticality Noted Date Comments Codeine Nausea only,Other (S ee comments),Nausea And Vomiting,Nausea & Vomiting Low 03/17/2022 Reaction: Reaction: Medications aspirin 81 mg tablet Active metoprolol XL (TOPROL-XL) 25 mg 24 hr tablet Active omeprazole (PriLOSEC) 20 mg capsule Take 2 capsules (40 mg total) by mouth daily Active irbesartan (AVAPRO) 300 mg tablet Take 1 tablet (300 mg total) by mouth nightly Active tamsulosin (FLOMAX) 0.4 mg extended release capsule 3 Active atorvastatin (LIPITOR) 40 mg tablet Take 1 tablet (40 mg total) by mouth daily 5 Active traZODone (DESYREL) 150 mg tablet Take 1 tablet (150 mg total) by mouth nightly 4 Active spironolactone (ALDACTONE) 25 mg tablet TAKE 1 TABLET BY MOUTH EVERY DAY 90 tablet 5 Active spironolactone (ALDACTONE) 25 mg tablet TAKE 1 TABLET BY MOUTH EVERY DAY 30 tablet 5 025 Discontinued Active Problems Problem Noted Date Diagnosed Date [...] -requesting imaging of CTA carotid performed at [facility] for evaluation. Primary hypertension 03/11/2023 Assessment & [...] on file Legal Sex Male 12:40 AM GLUE WHEEL OPERATOR Gender Identity Not on file Sexual Orientation Not on file Last Filed Vital Signs Vital Sign Reading Time Taken Comments Blood Pressure 126/84 11/20/2024 12:05 PM GLUE WHEEL OPERATOR Pulse 53 11/20/2024 12:05 PM GLUE WHEEL OPERATOR Temperature 36.4 C (97.6 F) 04/28/2023 10:29 AM CDT Respiratory Rate 18 04/28/2023 10:29 AM CDT Oxygen Saturation 94% 11/20/2024 12:05 PM GLUE WHEEL OPERATOR Inhaled Oxygen Concentration - - Weight 108.4 kg (239 lb) 11/20/2024 12:05 PM GLUE WHEEL OPERATOR Height 170.2 cm (5' 7 ) 11/20/2024 12:05 PM GLUE WHEEL OPERATOR Body Mass Index 37.43 11/20/2024 12:05 PM GLUE WHEEL OPERATOR Plan of Treatment Not on file Procedures Procedure Name Priority Date/Time Associated Diagnosis Comments AUDBASE RESULTS 12/04/2024 8:52 AM GLUE WHEEL OPERATOR from Last 3 Months Results * AudBase Results (12/04/2024 8:52 AM GLUE WHEEL OPERATOR) Provider Scanning AUDIOLOGY SERVICES ORDERABLES Final Result from Last 3 [place] [address] [facility] MEDICARE MEDICARE [employer] [place] MEDIC[place] [address] Care Teams Reel Assembler Relationship Specialty Start Date End Date Bennie Ramos MD PCP - General Family Medicine 08/03/22 Linda Barber, RN Registered Nurse Pulmonary Disease 05/05/23
--- OUTSIDE RECORDS SUMMARY | 2025-02-27 09:46 | XMS_ITS | Encounter Summary ---
Author Organization [facility] Address [address] [place] [address] Phone Care Team Providers Care Horticultural Specialty Grower Field Name Role Phone Bennie Ramos MD Primary Care Provider Linda Barber RN Unavailable Macrina vailable Encounter [...] on file Legal Sex Male 12:40 AM HUB BORER Gender Identity Not on file Sexual Orientation [...] on filedocumented in this encounter Care Teams Horticultural Specialty Grower Field Relationship Specialty Start Date End Date Bennie Ramos MD PCP - General Family Medicine 08/03/22 Linda Barber, RN Registered Nurse Pulmonary Disease 05/05/23 documented as of this encounter
--- OUTSIDE RECORDS SUMMARY | 2025-02-27 09:46 | XMS_ITS | Clinical Summary ---
Author Organization [facility] [employer] Address [address] [place] [address] Care Team Providers Care Foot Piece Assembler Name Role Phone Bennie Ramos Primary Care Provider Unavailabl e Source Comments [facility] [employer],non-owned Affiliates and Associated Physician Practices is amultiple site organization consisting of ambulatory clinics and hospital sitesin [place], [place], [place] and [place]. This disclosure is being madepursuant to the Care Everywhere program and may not contain all information available regarding this patient. Last updated 18.[facility] [employer] Allergies Active Allergy Reactions Criticality Noted Date Comments Codeine Nausea and/or Vomiting,Other Low 022 Reaction: Medications * Be aware that medications may not be up to date on this document. Alwaysverify current medications with the patient. metoprolol succinate XL 24hr (TOPROL XL) 25 MG tablet Take 1 (one) tablet by mouth once daily 1 Active atorvastatin (LIPITOR) 20 MG tablet Take 1 (one) tablet by mouth once daily 1 Active omeprazole (PriLOSEC) 40 MG capsule Take 1 (one) capsule by mouth once daily 2 Active spironolactone (Aldactone) 25 MG tablet Take 1 (one) tablet by mouth once daily 2 Active irbesartan (Avapro) 300 MG tablet Take 1 (one) tablet by mouth once daily 2 Active tamsulosin (Flomax) 0.4 MG capsule Take 1 (one) capsule by mouth once daily 4 Active atorvastatin (Lipitor) 40 MG tablet Take 1 (one) tablet by mouth once daily 4 Active traZODone (Desyrel) 150 MG tablet TAKE 1 TABLET BY MOUTH EVERY DAY AT BEDTIME NEEDED FOR SLEEP DUE FOR APPOINTMENT 4 Active albuterol HFA (Proventil; Ventolin; Proair) 108 (90 Base) MCG/ACT inhaler INHALE 2 PUFFS EVERY 4 HOURS NEEDED FOR WHEEZE OR FOR SHORTNESS OF BREATH 4 Active acetaminophen (Tylenol) 500 MG capsule Take 2 (two) capsules by mouth 3 times daily Take for ten days then as needed. 5 Active oxyCODONE, immediate release, (Roxicodone) 10 MG tabletIndicatio ns:Postoperativ e pain Take 0.5 (one-half) tablet to 1 (one) tablet by mouth every 4 hours as needed for Pain 42 tablet 12/12/2024 5:37 PM CHICK GRADER 5 Active Active Problems Problem Noted Date Diagnosed Date Presence of left artificial knee joint 3 Left ventricular systolic dysfunction 12/31/2022 VPC's (ventricular premature complexes) 06/04/20 22 Primary osteoarthritis of right knee 03/18/2022 Psychophysiologic insomnia 06/12/2020 DIONNE (obstructive sleep apnea) 03/13/2020 Encounters Date Type Department Care Team Description 01/22/2025 2:20 PM CDT Office Visit [facility] Orthopedics [address] [place] [address], [address] [phone] Wayne Fitzpatrick MD Primary osteoarthritis of right knee (Primary Dx) 01/22/2025 2:15 PM CDT Ancillary Procedure [facility] - Radiology [address] [place] [phone] Wayne Fitzpatrick MD Primary osteoarthritis of right knee 01/04/2025 11:40 AM CHICK GRADER Office Visit [facility] [address] [place] [address], [address] [phone] Mark Parr PA-C Aftercare following right knee joint replacement surgery (Primary Dx) 12/22/2024 Telephone [facility] [address] [place] [address], [facility] [address] [place] [phone] Wayne Fitzpatrick MD Home Health 12/21/2024 Telephone [facility] [address] [place] [address], [address] [phone] Wayne Fitzpatrick MD [facility] 12/20/2024 Telephone [facility] [address] [place] [address], [address] [phone] Wayne Fitzpatrick MD Post Op Call; Home Health; Physical Therapy 12/11/2024 10:33 AM CHICK GRADER Anesthesia Event [facility] - Perioperative Surgery [address] [place] [address] Dwight Deluca, DO Tyson Hutchinson, PILLOWCASE SEWER-ELECTROGALVANIZING MACHINE OPERATOR 12/11/2024 9:53 AM CHICK GRADER - 12/11/2024 12:11 PM CHICK GRADER Surgery [facility] - Perioperative Surgery [address] [place] [address] Wayne Fitzpatrick MD RIGHT TOTAL KNEE ARTHROPLASTY 12/11/2024 8:32 AM CHICK GRADER - 12/12/2024 6:00 PM CHICK GRADER Hospital Encounter [facility] [address] [place] [address] Wayne Fitzpatrick MD Surgery General Discharge Disposition: Home or Self Care 12/11/2024 Refill [facility] [address] [place] [phone] Wayne Fitzpatrick MD MEDICATION REFILL 12/11/2024 Travel 12/08/2024 Telephone [facility] [address] [place] [phone] Wayne Fitzpatrick MD Question from Last 3 Months Social History Tobacco [...] Recorded Patient Health Questionnaire-2 Score 3 12/30/2023 [facility] [place] [facility] - Occupational Stress Questionnaire Answer Date Recorded [...] any time in the past 12 m [facility], were you homeless or living in a residential (including now)? No 12/12/2024 Sex and Gender Information Value Date Recorded Sex Assigned at Not on file Legal Sex Male 12:14 PM CDT Gender Identity Not on file Sexual Orientation Not on file Last Filed Vital Signs Vital Sign Reading Time Taken Comments Blood Pressure 136/67 12/12/2024 12:50 PM CHICK GRADER Pulse 72 12/12/2024 12:50 PM CHICK GRADER Temperature 36.4 C (97.5 F) 12/12/2024 12:50 PM CHICK GRADER Respiratory Rate 18 12/12/2024 12:51 PM CHICK GRADER Oxygen Saturation 93% 12/12/2024 12:50 PM CHICK GRADER Inhaled Oxygen Concentration 21% 12/12/2024 3 :01 PM CHICK GRADER Weight 107.5 kg (237 lb) 12/11/2024 8:53 AM CHICK GRADER Height 175.3 cm (5' 9 ) 12/11/2024 8:53 AM CHICK GRADER Body Mass Index 35 12/11/2024 8:53 AM CHICK GRADER Plan of Treatment Health Maintenance Due Date [...] series) 2012 AAA SCREENING 2017 COVID-19 VACCINE ( - 2023-2 5 season) 2024 DEPRESSION SCREENING [...] this topic Medical Devices Implanted Type Area Early Childhood Specialist Device Identifier Shelf Expiration Date Model / Serial / Lot Tray Tib 79mm Kn Cocr I Beam Implanted:Qty: 1 on 12/11/2024 by Wayne Fitzpatrick MD at [facility] Right: Knee [employer] 09/05/2034 [id number] / / [id number] Cmpnt Fem Kn Rt Cr Cmnt Prm Vngrd Intlk Implanted:Qty: 1 on 12/11/2024 by Wayne Fitzpatrick MD at [facility] Right: Knee [employer] 09/12/2034 [id number] / / [id number] Cmpnt Ptlr Std 31mm 3 Pg Kn Ser A Implanted:Qty: 1 on 12/11/2024 by Wayne Fitzpatrick MD at [facility] Right: Knee [employer] 10/09/2029 [id number] / / [id number] Brng [id number] Vngrd Vivacit-E Kn Ant Stab Implanted:Qty: 1 on 12/11/2024 by Wayne Fitzpatrick MD at [facility] Right: Knee [employer] 01/13/2026 [id number] / / [id number] Cmnt Bone Plc R 40gm Grn Implanted:Qty: 2 on 12/11/2024 by Wayne Fitzpatrick MD at [facility] Right: Knee [employer] 02/06/2027 [id number] / / [id number] Procedures Procedure Name Priority Date/Time Associated Diagnosis Comments XR KNEE RIGHT 3VW Routine 01/22/2025 2:2 1 PM CDT Primary osteoarthritis of right knee IMAGING/RADIOLOGY/ XRAY RESULTS ORDER 12/15/2024 9:32 PM CHICK GRADER GLUCOSE - POINT OF CARE Routine 12/12/2024 4:48 PM CHICK GRADER URINALYSIS REFLEX MICROSCOPIC REFLEX CULTURE SILVANO 12/12/2024 4:31 PM CHICK GRADER GLUCOSE - POINT OF CARE Routine 12/12/2024 12:46 PM CHICK GRADER HOME O2 EVAL (DESATURATION SCREEN) SILVANO 12/12/2024 11:55 AM CHICK GRADER GLUCOSE - POINT OF CARE Routine 12/11/2024 11:04 PM CHICK GRADER GLUCOSE - POINT OF CARE Routine 12/11/2024 5:31 PM CHICK GRADER GLUCOSE - POINT OF CARE Routine 12/11/2024 1:37 PM CHICK GRADER NEURAXIAL BLOCK Routine 12/11/2024 11:08 AM CHICK GRADER [place] TOTAL KNEE REPLACEMENT 12/11/2024 10:08 AM CHICK GRADER Special Needs BIOMET (SHANE) NOTIFIED- [place] GLUCOSE - POINT OF CARE Routine 12/11/2024 9:17 AM CHICK GRADER from Last 3 Months Results * XR Knee Right 3Vw (01/22/2025 2:21 PM CDT) Narrative [facility] [place] [address] - 01/22/2025 2:21 PM CDT Please see progress note in Epic for results. us Wayne Fitzpatrick MD DIAGNOSTIC IMAGING ORDERABLES Final Result [facility] [place] [address] * IMAGING RADIOLOGY XRAY RESULTS ORDER (12/15/2024 9:32 PM CHICK GRADER) Anatomical Region Laterality Modality Other Narrative 12/15/2024 9:32 PM CHICK GRADER Ordered by an unspecified provider. us Scanned Document IMAGING Final Result * (ABNORMAL) GLUCOSE - POINT OF CARE (12/12/2024 4:48 PM CHICK GRADER) Only the most recent of6 resultswithin the time period is included. Glucose WB/POC 117(H) 70 - 99 mg/dL 12/12/2024 4:49 PM CHICK GRADER [facility] Specimen Type Cap Fingerstick 2024 4:49 PM CHICK GRADER [facility] Blood BLOOD SPECIMEN / Unknown 12/12/2024 4:48 PM CHICK GRADER 12/12/2024 4:48 PM CHICK GRADER Wayne Fitzpatrick MD LAB - POINT OF CARE ORDERABLE S Final Result [facility] [address] [place] [address] * (ABNORMAL) URINALYSIS REFLEX MICROSCOPIC REFLEX CULTURE (12/12/2024 4:31 PM CHICK GRADER) Color UA Colorless(A ) Yellow, Straw 12/12/2024 5:04 PM CHICK GRADER [facility] Clarity UA Clear Clear 12/12/2024 5:04 PM CHICK GRADER [facility] Glucose UA Normal Normal 12/12/2024 5:04 PM CHICK GRADER [facility] Bilirubin UA Negative Negative 12/12/2024 5:04 PM CHICK GRADER [facility] Ketone UA Negative Negative 12/12/2024 5:04 PM CHICK GRADER [facility] Specific Avery UA 1.005 1.005 - 1.030 12/12/2024 5:04 PM CHICK GRADER [facility] Blood UA 3+(A) Negative 12/12/2024 5:04 PM CHICK GRADER [facility] pH UA 5.0 5.0 - 9.0 pH 12/12/2024 5:04 PM CHICK GRADER [facility] Protein UA Negative Negative 12/12/2024 5:04 PM CHICK GRADER [facility] Urobilinogen UA Normal Normal mg/dL 12/12/2024 5:04 PM CHICK GRADER [facility] Nitrite UA Negative Negative 12/12/2024 5:04 PM CHICK GRADER [facility] Leukocyte UA Negative Negative 12/12/2024 5:04 PM CHICK GRADER [facility] RBC UA 21-50(A) 0 - 5 # /hpf 12/12/2024 5:04 PM CHICK GRADER [facility] WBC UA 0-5 0 - 5 # /hpf 12/12/2024 5:04 PM CHICK GRADER [facility] Bacteria UA Trace(A) None Seen 12/12/2024 5:04 PM CHICK GRADER [facility] Squamous Epithelial Cells None Seen 0 - 5 /hpf 12/12/2024 5:04 PM CHICK GRADER [facility] Mucus UA 1+ /LPF 12/12/2024 5:04 PM [facility] Urine URINE SPECIMEN OBTAINED BY CLEAN CATCH PROCEDURE / Unknown Collection / Unknown 12/12/2024 4:31 PM CHICK GRADER 12/12/2024 4:45 PM CHICK GRADER Narrative [facility] - 12/12/2024 5:04 PM CHICK GRADER Harriet Elias MD LAB - URINALYSIS ORDERAB LES Final Result [facility] [address] [place] [address] * Neuraxial Block (12/11/2024 11:08 AM CHICK GRADER) Narrative Tyson Hutchinson APRN-ELECTROGALVANIZING MACHINE OPERATOR - 12/11/2024 11:08 AM CHICK GRADER Tyson Hutchinson APRN-CRNA 12/11/2024 11:09 AM Neuraxial Block Note Pre-Procedure: [...] paramedian Skin was localized? Nursing documentation on [facility] Skin localized with: Lidocaine 1% and 1 mL Spinal Block: Needle Type: spinal needle Needle Gauge: 22 Needle Length: 90 mm Placement Site: L3-4 Number of Attempts: 1 CSF: free flow, aspiration before injection Local anesthetics used? Nursing documentation on the [facility] Spinal Local Anesthetic: Bupivacaine: 0.75% in dextrose [...] Time: 9 Staff: Anesthesia Provider: Tyson Hutchinson APRN-CRNA - performed the procedure Dwight Deluca DO GENERAL ANESTHESIA ORDERABLES F inal Result from Last 3 Months Insurance MEDICARE [facility] MEDICARE Advance Directives * Full Code (Latest Code Status on File) Date Activated Date Inactivated Comments 12/11/2024 2:43 PM 12/12/2024 7:10 PM Care Teams Foot Piece Assembler Relationship Specialty Start Date End Date Bennie Ramos PCP - General 11/02/24
--- OUTSIDE RECORDS SUMMARY | 2025-02-27 09:46 | XMS_ITS | Clinical Summary ---
Author Organization [facility] [address] Address [address] [place] [address] Care Team Providers Care Cert Pharmacy Tech Name Role Phone Bennie Ramos MD Primary Care Provider [phone] Linda Barber RN Unavailable Macrina vailable Allergies [...] -requesting imaging of CTA carotid performed at [facility] for evaluation. Primary hypertension 03/11/2023 Assessment [...] Morbid obesity with BMI of 40.0-44.9, adult 03/0 04/2018 Abnormal stress test 06/17/2017 Supraventricular premature beats 08/10/2014 Overview (02/05/2017): Supraventricular premature beats Osteoarthritis of knee 07/11/2013 Deafness, conductive 04/20/2011 Hearing loss 03/23/2011 ILD (interstitial lung disease) Encounters Date Type Department Care Team Description 12/04/2024 10:00 AM HAND BRIM IRONER Office Visit [facility] E[facility] [address], [address] [place] [address] Toño Calhoun MD Mixed conductive and sensorineural hearing loss of right ear with restricted hearing of left ear (Primary Dx) 12/04/2024 9:00 AM HAND BRIM IRONER Procedure visit [facility] Otolaryngology [address] [place] [address] Cari Woodward Au.D. Mixed conductive and sensorineural hearing loss, bilateral (Primary Dx) from Last 3 Months Immunizations Immunization Administration [...] on file Legal Sex Male 12:40 AM HAND BRIM IRONER Gender Identity Not on file Sexual Orientation Not on file Obstetrics History Last Filed Vital Signs Vital Sign Reading Time Taken Comments Blood Pressure 126/84 11/20/2024 12:05 PM HAND BRIM IRONER Pulse 53 11/20/2024 12:05 PM HAND BRIM IRONER Temperature 36.4 C (97.6 F) 04/28/2023 10:29 AM CDT Respiratory Rate 18 04/28/2023 10:29 AM CDT Oxygen Saturation 94% 11/20/2024 12:05 PM HAND BRIM IRONER Inhaled Oxygen Concentration - - Weight 108.4 kg (239 lb) 11/20/2024 12:05 PM HAND BRIM IRONER Height 170.2 cm (5' 7 ) 11/20/2024 12:05 PM HAND BRIM IRONER Body Mass Index 37.43 11/20/2024 12:05 PM HAND BRIM IRONER Plan of Treatment Health Maintenance Due Date [...] Diagnosis Comments AUDBASE RESULTS 12/04/2024 8:52 AM HAND BRIM IRONER from Last 3 Months Results * AudBase Results (12/04/2024 8:52 AM HAND BRIM IRONER) Provider Scanning AUDIOLOGY SERVICES ORDERABLES Final Result from Last 3 Months Insurance [employer] MEDICARE [place] [address] MEDICARE [employer] Care Teams Cert Pharmacy Tech Relationship Specialty Start Date End Date Bennie Ramos MD PCP - General Family Medicine 08/03/22 Linda Barber, RN Registered Nurse Pulmonary Disease 05/05/23
--- OUTSIDE RECORDS SUMMARY | 2025-02-27 09:46 | XMS_ITS | Encounter Summary ---
Author Organization [facility] Address [address] [place] [address] Phone Care Team Providers Care Insulation Installer Name Role Phone Bennie Ramos MD Primary Care Provider [phone] Linda Barber RN Unavailable Macrina vailable Encounter [...] on file Legal Sex Male 12:40 AM SURFACE SUPPLY BREATHING APPARATUS Gender Identity Not on file Sexual Orientation [...] on filedocumented in this encounter Care Teams Insulation Installer Relationship Specialty Start Date End Date Bennie Ramos MD PCP - General Family Medicine 08/03/22 Linda Barber, RN Registered Nurse Pulmonary Disease 05/05/23 documented as of this encounter
--- NOTE | 2025-02-27 10:17 | EST_ITS ---
Patient Info Name: Tono Coreas Age: 74 years : 1950 Gender: Male Ht: 68 in Wt: 240 lbs BSA: 2.33 m2 HR: 93 bpm BP: 141 / 101 mmHg Exam Date: 02/27/2025 10:36 AM Exam Location: Echo Lab Patient Status: Outpatient Admit Date: 02/27/2025 Staff Ordering Physician: Airam Serrano Attending Provider: Airam Serrano Exercise Technologist: Trudy Wallace RDCS Nurse: Belkys Deal APN Exam Type: CA stress tish w NM Study Info A regadenoson stress test was performed. Summary 1. Atrial fibrillation, nonspecific T-wave abnormality. 2. No ST segment abnormality following Lexiscan injection. 3. Persistent atrial fibrillation. 4. Clinically and electrocardiographically uneventful Lexiscan stress test. 5. Myocardial perfusion imaging to be dictated by Radiology. Protocol: Lexiscan Stress ECG Details Stage: REST Duration (min): 1 min : 52 sec HR (bpm): 90 SBP (mmHg): 141 DBP (mmHg): 101 Stage: REST Duration (min): 9 min : 5 sec HR (bpm): 94 SBP (mmHg): 141 DBP (mmHg): 101 Stage: STAGE 1 Duration (min): 1 min : 0 sec HR (bpm): 94 SBP (mmHg): 130 DBP (mmHg): 101 Stage: RECOVERY Duration (min): 1 min : 0 sec HR (bpm): 99 SBP (mmHg): 130 DBP (mmHg): 101 Stage: RECOVERY Duration (min): 2 min : 0 sec HR (bpm): 106 SBP (mmHg): 131 DBP (mmHg): 99 Stage: RECOVERY Duration (min): 3 min : 0 sec HR (bpm): 102 SBP (mmHg): 142 DBP (mmHg): 98 Stage: RECOVERY Duration (min): 3 min : 7 sec HR (bpm): 103 SBP (mmHg): 142 DBP (mmHg): 98 Rest HR: 94 bpm Peak HR: 109 bpm Rest Sys BP: 141 mmHg Peak Sys BP: 142 mmHg Max Pred HR: 148 bpm % Max Pred HR: 74 % Target HR: 126 bpm Max RPP: 15,478 bpm*mmHg Termination Reason: Completed protocol Cardiac Symptoms: None Total Time: 1 min : 0 sec Rest Anguiano BP: 101 mmHg Peak Anguiano BP: 98 mmHg Total Dose: 0.4 mg Resting ECG Atrial fibrillation, nonspecific T-wave abnormality. Stress ECG No ST segment abnormality following Lexiscan injection. Arrhythmias Persistent atrial fibrillation. Report Signatures
== END 2025-02-27 09:07 | disposition home or self-care (01) ==
PROVIDERS: PCP Nurse Practitioner Family; Visit Provider Nurse Practitioner Family
DX: I50.20 Unspecified systolic (congestive) heart failure (principal); R06.02 Shortness of breath
CPT/HCPCS: 78452; 93017; A9502; J2785

== ENCOUNTER 2025-05-15 00:04 | Day surgery (SDC) | payer MEDICARE, OTHER, SELFPAY ==
[2025-05-14 16:38] VITALS: BMI 32.4
[2025-05-15] VITALS (7 sets, daily range): BP systolic 108–137; BP diastolic 70–92; PULSE 59–67; RESP 12–17; TEMP 36.3; O2SAT 96–100; BMI 32.5
--- OUTSIDE RECORDS SUMMARY | 2025-05-15 00:08 | XMS_ITS | Encounter Summary ---
Author Organization [facility] Address [address] [place] [address] Phone Care Team Providers Care Parts Chaser Name Role Phone Bennie Ramos MD Primary Care Provider [phone] Linda Barber RN Unavailable Macrina Airam Nunez FURNITURE MAKER Primary Care Provider [phone] Encounter Details Date Type Department Care Team [...] on file Legal Sex Male 12:40 AM TOUR PRODUCTION SUPERVISOR Gender Identity Not on file Sexual Orientation [...] on filedocumented in this encounter Care Teams Parts Chaser Relationship Specialty Start Date End Date Bennie Ramos MD PCP - General Family Medicine 08/03/22 03/21/25 Airam Serrano, FURNITURE MAKER [address] [place] [address] PCP - General Family Medicine 03/22/25 Linda Barber, RN Registered Nurse Pulmonary Disease 05/05/23 documented as of this encounter
--- OUTSIDE RECORDS SUMMARY | 2025-05-15 00:08 | XMS_ITS | Clinical Summary ---
Author Organization [facility] Address [address] [place] [address] Care Team Providers Care Geothermal System Installer Name Role Phone Bennie Ramos Primary Care Provider Unavailabl e Source Comments [facility],non-owned Affiliates and Associated Physician Practices is amultiple site organization consisting of ambulatory clinics and hospital sitesin [place], [place], [place] and [place]. This disclosure is being madepursuant to the Care Everywhere program and may not contain all information available regarding this patient. Last updated 18.[facility] Allergies Active Allergy Reactions Criticality Noted Date [...] for Pain 42 tablet 12/12/2024 5:37 PM CERTIFIED GREEN BUILDING ENGINEER 5 Active Active Problems Problem Noted Date Diagnosed Date Presence of left artificial knee joint 3 Left ventricular systolic dysfunction 12/31/2022 VPC's (ventricular premature complexes) 06/04/20 22 Primary osteoarthritis of right knee 03/18/2022 Psychophysiologic insomnia 06/12/2020 DIONNE (obstructive sleep apnea) 03/13/2020 Social History Tobacco Use Types Packs/Day Years [...] you are drinking? Patient does not drink 5 Q3: How often do you have si x or more drinks on one occasion? Never 12/12/2024 Overall Financial Resource Strain (CARDIA) Answe r Date Recorded How hard is it for you to pa y for the very basics like food, housing, medical care, and heating? Not hard at all 12/12/2024 PHQ-2 Answer Date Recorded Patient Health Questionnaire-2 Score 3 12/30/2023 [facility] [place] of Occupat ional Health - Occupational Stress [...] any time in the past 12 [facility], were you homeless or living in a detention (including now)? No 12/12/2024 Sex and Gender Information Value Date Recorded Sex Assigned at Not on file Legal Sex Male 12:14 PM CDT Gender Identity Not on file Sexual Orientation Not on file Last Filed Vital Signs Vital Sign Reading Time Taken Comments Blood Pressure 136/67 12/12/2024 12:50 PM CERTIFIED GREEN BUILDING ENGINEER Pulse 72 12/12/2024 12:50 PM CERTIFIED GREEN BUILDING ENGINEER Temperature 36.4 C (97.5 F) 12/12/2024 12:50 PM CERTIFIED GREEN BUILDING ENGINEER Respiratory Rate 18 12/12/2024 12:51 PM CERTIFIED GREEN BUILDING ENGINEER Oxygen Saturation 93% 12/12/2024 12:50 PM CERTIFIED GREEN BUILDING ENGINEER Inhaled Oxygen Concentration 21% 12/12/2024 3 :01 PM CERTIFIED GREEN BUILDING ENGINEER Weight 107.5 kg (237 lb) 12/11/2024 8:53 AM CERTIFIED GREEN BUILDING ENGINEER Height 175.3 cm (5' 9) 12/11/2024 8:53 AM CERTIFIED GREEN BUILDING ENGINEER Body Mass Index 35 12/11/2024 8:53 AM CERTIFIED GREEN BUILDING ENGINEER Plan of Treatment Health Maintenance Due Date Last Done Comments CARRIE (AGES 45-75) - COL ON CA SCREENING [...] season) 2024 DEPRESSION SCREENING 11/01/2024 INFLUENZA VACCINE (#1) 2025 06/14/2018 HEPATITIS B VACCINE Aged Out No [...] this topic Medical Devices Implanted Type Area Gravedigger Device Identifier Shelf Expiration Date Model / Serial / Lot Tray Tib 79mm Kn Cocr I Beam Implanted:Qty: 1 on 12/11/2024 by Wayne Fitzpatrick MD at [facility] Right: Knee [employer] 09/05/2034 [id number] / / [id number] Cmpnt Fem Kn Rt Cr Cmnt Prm Vngrd Intlk Implanted:Qty: 1 on 12/11/2024 by Wayne Fitzpatrick MD at [facility] Right: Knee [employer] 09/12/2034 [id number] / / [id number] Cmpnt Ptlr Std 31mm 3 Pg Kn Ser A Implanted:Qty: 1 on 12/11/2024 by Wayne Fitzpatrick MD at [facility] Right: Knee [employer] 10/09/2029 [id number] / / [id number] Brng 66v23dn Vngrd Vivacit-E Kn Ant Stab Implanted:Qty: 1 on 12/11/2024 by Wayne Fitzpatrick MD at [facility] Right: Knee [employer] 01/13/2026 [id number] / / [id number] Cmnt Bone Plc R 40gm Grn Implanted:Qty: 2 on 12/11/2024 by Wayne Fitzpatrick MD at [facility] Right: Knee [employer] 02/06/2027 [id number] / / [id number] Insurance MEDICARE [facility] [place] [id number] MEDICARE Advance Directives * Full Code (Latest Code Status on File) Date Activated Date Inactivated Comments 12/11/2024 2:43 PM 12/12/2024 7:10 PM Care Teams Geothermal System Installer Relationship Specialty Start Date End Date Bennie Ramos PCP - General 11/02/24
--- OUTSIDE RECORDS SUMMARY | 2025-05-15 00:08 | XMS_ITS | Encounter Summary ---
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
--- OUTSIDE RECORDS SUMMARY | 2025-05-15 00:08 | XMS_ITS | Encounter Summary ---
Author Organization [facility] Address [address] [place] [address] Care Team Providers Care Clinical Nursing Professor Name Role Phone Linda Barber RN Unavailable Macrina Airam Nunez FEED PREPARATION OPERATOR Primary Care Provider [phone] Encounter Details Date Type Department Care Team (Late st Contact Info) Description 04/24/2025 Results Follow-Up [facility] Cardiology [address] [place] [address] Senait Fair NP [address] [place] [address] ECG 12 lead, Transthoracic Echo (TTE) Complete W Doppler/CF Social History Tobacco Use Types Packs/Day Years Used Date Smoking Tobacco: Former Cigarettes Q uit: 06/17/1991 Smokeless Tobacco: Never Alcohol Use Standard Drinks/Week Comments No 0 (1 standard drink = 0.6 oz pur e alcohol) Sex and Gender Information Value Date Recorded Sex Assigned at Not on file 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
--- OUTSIDE RECORDS SUMMARY | 2025-05-15 00:08 | XMS_ITS | Clinical Summary ---
Author Organization [facility] [address] Address [address] [place] [address] Care Team Providers Care Slotter Operator Name Role Phone Linda Barber RN Unavailable Macrina Airam Nunez SUPERVISOR CARTOGRAPHY Primary Care Provider [phone] Allergies Active Allergy Reactions Criticality Noted Date Comments Codeine Nausea only,Other (S ee comments),Nausea And Vomiting,Nausea & Vomiting Low 03/17/2022 Reaction: Reaction: Medications metoprolol XL (TOPROL-XL) 25 mg 24 hr tablet Take 2 tablets (50 mg total) by mouth daily Active omeprazole (PriLOSEC) 20 mg capsule Take 2 capsules (40 mg total) by mouth daily Active tamsulosin (FLOMAX) 0.4 mg extended release capsule 04/12/20 23 Active atorvastatin (LIPITOR) 40 mg tablet Take 1 tablet (40 mg total) by mouth daily 11/13/19 25 Active traZODone (DESYREL) 150 mg tablet Take 1 tablet (150 mg total) by mouth nightly 10/02/20 24 Active spironolactone (ALDACTONE) 25 mg tablet TAKE 1 TABLET BY MOUTH EVERY DAY 90 tablet 02/27/20 25 Active furosemide (LASIX) 20 mg tablet Take 1 tablet (20 mg total) by mouth every morning 02/10/20 25 Active LORazepam (ATIVAN) 0.5 mg tablet TAKE 1 TABLET BY MOUTH TWICE A DAY NEEDED FOR SLEEP OR ANXIETY 02/10/20 25 Active amiodarone (PACERONE) 200 mg tabletIndication s:Ventricular Rate Control in Atrial Fibrillation Take 1 tablet (200 mg total) by mouth daily 90 tablet 1 03/22/20 25 025 Active warfarin (COUMADIN) 6 mg tablet Take 1 tablet (6 mg total) by mouth daily 30 tablet 04/26/20 25 025 Active sacubitriL-valsa rtan (ENTRESTO) 49-51 mg tabletIndication s:chronic heart failure Take 1 tablet by mouth 2 (two) times a day 60 tablet 11 04/26/20 25 Active irbesartan (AVAPRO) 300 mg tablet Take 1 tablet (300 mg total) by mouth nightly 025 Discontinued(Al ternate therapy) warfarin (COUMADIN) 2 mg tablet Take 3 tablets (6 mg total) by mouth daily 90 tablet 04/04/20 25 025 Discontinued Active Problems Problem Noted Date Diagnosed Date Atrial fibrillation 04/04/2025 Severe obesity 11/20/2024 Stenosis of right subclavian [...] -requesting imaging of CTA carotid performed at [facility] for evaluation. Primary hypertension 03/11/2023 Assessment & [...] Encounters Date Type Department Care Team Description 05/07/2025 11:30 AM CDT Office Visit [facility] Cardiology at [address] [place] [address] Austen Lion MD Atrial fibrillation, unspecified type (HCC) (Primary Dx); VPC's (ventricular premature complexes) 05/07/2025 Results Follow-Up [facility]iology [address] [facility] [address] [place] [address] Senait Caldera NP Basic metabolic panel 05/07/2025 Anticoagulation Visit [facility]iology [address] [place] [address] [place] [phone] Dorcas Charles RN Atrial fibrillation, unspecified type (HCC) (Primary Dx) 04/27/2025 Telephone [facility] [address] [place] [address] [place] [phone] Austen Lion MD 04/24/2025 1:30 PM CDT Procedure visit [facility]iology at [address] [place] [phone] Atrial fibrillation, unspecified type (HCC) 04/24/2025 1:00 PM CDT Ancillary Procedure [facility] Cardiology at [address] [place] [phone] Atrial fibrillation, unspecified type (HCC) 04/24/2025 Results Follow-Up [facility] [address] [place] [address] [place] [phone] Senait Caldera NP ECG 12 lead, Transthoracic Echo (TTE) Complete W Doppler/CF 04/24/2025 Telephone [place] [address] [place] [phone] Senait Caldera NP 04/17/2025 Anticoagulation Visit [facility] [address] [place] [address] [place] [phone] Jo Chan RN Atrial fibrillation, unspecified type (HCC) (Primary Dx) 04/10/2025 Anticoagulation Visit [facility] [address] [place] [address] [place] [phone] Jo Chan RN Atrial fibrillation, unspecified type (HCC) (Primary Dx) 04/10/2025 Telephone [facility]iology [address] [place] [address] [place] [phone] Austen Lion MD 04/10/2025 Anticoagulation Visit [facility] [address] [place] [address] [address] [place] [address] Jo Chan RN Atrial fibrillation, unspecified type (HCC) (Primary Dx) 04/04/2025 Anticoagulation Visit [facility] Medical [facility] Cardiology at [address] [place] [phone] Sonal Morgan RN Atrial fibrillation, unspecified type (HCC) (Primary Dx) 03/30/2025 Telephone [facility] [address] [place] [address] [address] [place] [address] Martha Del Angel MA 03/22/2025 10:30 AM CDT Office Visit [facility] [address] [place] [address] [address] [place] [phone] Senait Caldera NP Atrial fibrillation, unspecified type (HCC) (Primary Dx); Left ventricular systolic dysfunction; Productive cough; DIONNE (obstructive sleep apnea) 03/22/2025 Telephone [facility]iology [address] [place] [address] [address] [place] [address] Austen Lion MD from Last [...] on file 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 Gender Identity Not on file Sexual Orientation Not on file Obstetrics History Last Filed Vital Signs Vital Sign Reading Time Taken Comments Blood Pressure 108/74 05/07/2025 11:25 AM CDT Pulse 77 05/07/2025 11:25 AM CDT Temperature 36.4 C (97.6 F) 04/28/2023 10:29 AM CDT Respiratory Rate 18 04/28/2023 10:29 AM CDT Oxygen Saturation 91% 05/07/2025 11:25 AM CDT Inhaled Oxygen Concentration - - Weight 96.6 kg (213 lb) 05/07/2025 11:25 AM CDT Height 170.2 cm (5' 7) 05/07/2025 11:25 AM CDT Body Mass Index 33.36 05/07/2025 11:25 AM CDT Plan of Treatment Health Maintenance Due Date Last Done Comments Colon Cancer Screening-Colonoscopy 1950 Depression Screening 1950 Fall Risk Assessment 1950 Hepatitis C Screening 1950 DTaP/Tdap/Td Vaccine (1 - Tdap) 1963 Hepatitis B Screening 1970 Pneumococcal vaccine 65+ (1 of 1 - PCV) 2002 Zoster Vaccine (1 of 2) 2002 Abdominal Aortic Aneurysm (AAA) Screen 2017 Well Visit 65+ 2017 Influenza Vaccine (#1) 2025 08/25/2019, 2017 Procedures Procedure Name Priority Date/Time Associated Diagnosis Comments PROTIME-INR Routine 05/05/2025 10:26 AM CDT Atrial fibrillation, unspecified type (HCC) BASIC METABOLIC PANEL Routine 05/05/2025 10:25 AM CDT Atrial fibrillation, unspecified type (HCC) ECG 12-LEAD Routine 04/24/2025 1:36 PM CDT Atrial fibrillation, unspecified type (HCC) TRANSTHORACIC ECHO (TTE) COMPLETE W DOPPLER/CF WO CONTRAST Routine 04/24/2025 1:27 PM CDT Atrial fibrillation, unspecified type (HCC) PROTIME-INR Routine 04/16/2025 1:41 PM CDT Atrial fibrillation, unspecified type (HCC) PROTIME-INR Routine 04/09/2025 2:20 PM CDT Atrial fibrillation, unspecified type (HCC) ECG 12-LEAD Routine 03/22/2025 11:40 AM CDT Atrial fibrillation, unspecified type (HCC) from Last 3 Months Results * (ABNORMAL) Protime-INR (05/05/2025 10:26 AM CDT) INR 3.7(H) [facility] Comment: Reference Range 0.9-1.1 Moderate-intensity Warfarin Therapy 2.0-3.0 Higher-intensity Warfarin Therapy 3.0-4.0 PT 36.1(H) 9.0 - 11.5 sec [facility] Comment: For additional information, please refer to http://education.ReaLync/faq/WDK442 (This link is being provided for informational/ educational purposes only.) Blood 05/05/2025 10:2 6 AM CDT 05/05/2025 10:26 AM CDT Austen Lion MD LAB BLOOD ORDERABLES Fin al Result [facility] [address] [place] [address] * (ABNORMAL) Basic metabolic panel (05/05/2025 10:25 AM CDT) Glucose 107(H) 65 - 99 mg/dL [facility] Comment: Fasting reference interval For someone without known diabetes, a glucose value between 100 and 125 mg/dL is consistent with prediabetes and should be confirmed with a follow-up test. BUN 18 7 - 25 mg/dL [facility] Creatinine 1.33(H) 0.70 - 1.28 mg/dL [facility] eGFR 57(L) > OR = 60 mL/min/1.7 3m2 [facility] BUN/creat ratio 14 6 - 22 (calc) [facility] Sodium 137 135 - 146 mmol/L [facility] Potassium, pl 3.7 3.5 - 5.3 mmol/L [facility] Chloride 98 98 - 110 mmol/L [facility] CO2 28 20 - 32 mmol/L [facility] Calcium 9.4 8.6 - 10.3 mg/dL [facility] Blood 05/05/2025 10:2 5 AM CDT 05/05/2025 10:25 AM CDT us Senait Caldera SUPERVISOR CARTOGRAPHY LAB BLOOD ORDERABLES Janet l Result [facility] [address] [address] [facility] [place] [address] * ECG 12 lead (04/24/2025 1:36 PM CDT) us Senait Caldera SUPERVISOR CARTOGRAPHY ECG ORDERABLES Final Res ult * TRANSTHORACIC ECHO (TTE) COMPLETE W DOPPLER/CF WO CONTRAST (04/24/2025 1:27 PM CDT) Estimated EF 25-30 % CONS SCIMAGE EF Mod BP 34 % CONS SCIMAGE Anatomical Region Laterality Modality Ultrasound 04/24/2025 1:01 PM CDT Narrative 04/24/2025 5:17 PM CDT [facility] Cardiology [address], [address], [place] [address] P:[phone] P:[phone] Echocardiographic Report Patient Name: RASHAAD COREAS Chau : 1950 Study Date: 04/24/2025 1:01:11 PM Gender: M Retail Branch Manager: LUCIANO Location: [facility] Ref Provider: SENAIT CALDERA Height(Cm): 170 BSA: 2.26 Weight(Kg): 108 Heart Rate: 85 BP: 126 / 78 Quality: Good Order Provider: SENAIT CALDERA PROCEDURES: Echocardiographic Report: Transthoracic echocardiogram with complete 2D, M-Mode, and color Doppler examination. With Strain Analysis. INDICATIONS: I48.91 Unspecified atrial fibrillation. MEASUREMENTS: 2D/MM Value Range Doppler Value Range EF Mod BP 34 % [ 52 - 72 ] AV Mean PG 5 mmHg EF Teich MM 27 % [ 52 - 72 ] AV Peak Dominguez 1.40 m/s [ 1.00 - 1.70 ] Estimated EF 25-30 % AV Peak PG 8 mmHg LVIDd 2D 5.85 cm [ 4.20 - 5.80 ] AV VTI 26.60 cm LVIDd MM 6.78 cm [ 4.20 - 5.80 ] LVOT Peak Dominguez 1.00 m/s [ 0.70 - 1.10 ] LVIDs 2D 4.82 cm [ 2.50 - 4.00 ] LVOT VTI 17.31 cm LVIDs MM 5.89 cm [ 2.50 - 4.00 ] MV E Peak Dominguez 1.06 m/s [ 0.60 - 1.30 ] LVPWd 2D 1.16 cm [ 0.60 - 1.00 ] MV Decel Time 88 msec [ 104 - 258 ] LVPWd MM 0.72 cm [ 0.60 - 1.00 ] PV Peak Dominguez 0.80 m/s [ 0.40 - 0.80 ] IVSd 2D 1.22 cm [ 0.60 - 1.00 ] TR Peak Dominguez 3.06 m/s [ 1.00 - 2.80 ] IVSd MM 1.13 cm [ 0.60 - 1.00 ] TR Peak PG 37 mmHg LA Dimension MM 4.97 cm [ 3.00 - 4.00 ] RVSP 45.00 mmHg [ 10.00 - 36.00 ] AoR Diam MM 3.82 cm [ 3.10 - 3.70 ] Lateral E` 0.15 m/s [ 0.10 - 0.15 ] LA Volume Index 49 cc/m2 [ 16 - 34 ] E/E` 7 ACS MM 1.73 cm [ 1.50 - 2.60 ] 2D/MM Value Range Doppler Value Range - FINDINGS: Interpretation Site: Exam was interpreted at [facility]. Left Ventricle: Mild concentric left ventricular hypertrophy. Moderate enlargement of left ventricle cavity. Severe global left ventricular systolic dysfunction. Indeterminate diastolic function. Ejection Fraction is visually estimated to be 25-30 %. Global Longitudinal Strain is -7 %. GLS is abnormal. Right Ventricle: Mild enlargement of right ventricle. Moderate right ventricular hypokinesis. Left Atrium: There is moderate enlargement of left atrium. Right Atrium: There is mild enlargement of right atrium. Atrial Septum: Normal atrial septum. Mitral Valve: Mitral valve leaflets appear mildly thickened. Mild to moderate mitral valve regurgitation. There is no hemodynamically significant mitral stenosis by Doppler. Aortic Valve: No evidence of hemodynamically significant aortic stenosis by Doppler. Aortic cusps appear mildly sclerotic. Trileaflet aortic valve. Trace aortic valve regurgitation. Tricuspid Valve: Normal appearance of the tricuspid valve. Moderate pulmonary hypertension based on right ventricular systolic pressure. Estimated peak RVSP is 45 mmHg. Mild tricuspid regurgitation. Pulmonic Valve: Normal appearance of the pulmonic valve. No pulmonic stenosis. Trivial regurgitation in the pulmonic valve. Pericardium: Normal pericardium with no significant pericardial effusion. Aorta: No aortic root dilation. Mild aortic root calcification. IVC: Normal size and normal respiratory collapse consistent with normal right atrial pressure (<5 mmHg). CONCLUSIONS: Mild concentric left ventricular hypertrophy. Moderate enlargement of left ventricle cavity. Severe global left ventricular systolic dysfunction. Indeterminate diastolic function. Ejection Fraction is visually estimated to be 25-30 %. Global Longitudinal Strain is -7 %. GLS is abnormal. Mild enlargement of right ventricle. Moderate right ventricular hypokinesis. There is moderate enlargement of left atrium. There is mild enlargement of right atrium. Mitral valve leaflets appear mildly thickened. Mild to moderate mitral valve regurgitation. Moderate pulmonary hypertension based on right ventricular systolic pressure. Estimated peak RVSP is 45 mmHg. Mild tricuspid regurgitation. Atrial fibrillation. Electronically Signed By: Parveen Moreno MD 04/24/2025 5:16:42 PM CDT Procedure Note Parveen Moreno MD - 04/24/2025 [facility] Cardiology [address], [address], [place] [address] P:[phone] P:[phone] Echocardiographic Report Patient Name: RASHAAD COREAS P : 1950 Study Date: 04/24/2025 1:01:11 PM Gender: M Retail Branch Manager: Location: [facility] Ref Provider: SENAIT CALDERA Height(Cm): 170 BSA: 2.26 Weight(Kg): 108 Heart Rate: 85 BP: 126 / 78 Quality: Good Order Provider: SENAIT CALDERA PROCEDURES: Echocardiographic Report: Transthoracic echocardiogram with complete 2D, M-Mode, and color Dopplerexamination. With Strain Analysis. INDICATIONS: I48.91 Unspecified atrial fibrillation. MEASUREMENTS: 2D/MM Value Range Doppler ValueRange EF Mod BP 34 % [ 52 - 72 ] AV Mean PG 5mmHg EF Teich MM 27 % [ 52 - 72 ] AV Peak Dominguez 1.40m/s [ 1.00 - 1.70 ] Estimated EF 25-30 % AV Peak PG 8mmHg LVIDd 2D 5.85 cm [ 4.20 - 5.80 ] AV VTI 26.60cm LVIDd MM 6.78 cm [ 4.20 - 5.80 ] LVOT Peak Dominguez 1.00m/s [ 0.70 - 1.10 ] LVIDs 2D 4.82 cm [ 2.50 - 4.00 ] LVOT VTI 17.31cm LVIDs MM 5.89 cm [ 2.50 - 4.00 ] MV E Peak Dominguez 1.06m/s [ 0.60 - 1.30 ] LVPWd 2D 1.16 cm [ 0.60 - 1.00 ] MV Decel Time 88 msec[ 104 - 258 ] LVPWd MM 0.72 cm [ 0.60 - 1.00 ] PV Peak Dominguez 0.80m/s [ 0.40 - 0.80 ] IVSd 2D 1.22 cm [ 0.60 - 1.00 ] TR Peak Dominguez 3.06m/s [ 1.00 - 2.80 ] IVSd MM 1.13 cm [ 0.60 - 1.00 ] TR Peak PG 37mmHg LA Dimension MM 4.97 cm [ 3.00 - 4.00 ] RVSP 45.00mmHg [ 10.00 - 36.00 ] AoR Diam MM 3.82 cm [ 3.10 - 3.70 ] Lateral E` 0.15m/s [ 0.10 - 0.15 ] LA Volume Index 49 cc/m2 [ 16 - 34 ] E/E` 7 ACS MM 1.73 cm [ 1.50 - 2.60 ] 2D/MM Value Range Doppler ValueRange - FINDINGS: Interpretation Site: Exam was interpreted at [facility]. Left Ventricle: Mild concentric left ventricular hypertrophy. Moderate enlargement of leftventricle cavity. Severe global left ventricular systolic dysfunction. Indeterminatediastolic function. Ejection Fraction is visually estimated to be 25-30 %. GlobalLongitudinal Strain is -7 %. GLS is abnormal. Right Ventricle: Mild enlargement of right ventricle. Moderate right ventricularhypokinesis. Left Atrium: There is moderate enlargement of left atrium. Right Atrium: There is mild enlargement of right atrium. Atrial Septum: Normal atrial septum. Mitral Valve: Mitral valve leaflets appear mildly thickened. Mild to moderate mitralvalve regurgitation. There is no hemodynamically significant mitral stenosis byDoppler. Aortic Valve: No evidence of hemodynamically significant aortic stenosis by Doppler.Aortic cusps appear mildly sclerotic. Trileaflet aortic valve. Trace aortic valveregurgitation. Tricuspid Valve: Normal appearance of the tricuspid valve. Moderate pulmonary hypertensionbased on right ventricular systolic pressure. Estimated peak RVSP is 45 mmHg. Mildtricuspid regurgitation. Pulmonic Valve: Normal appearance of the pulmonic valve. No pulmonic stenosis. Trivialregurgitation in the pulmonic valve. Pericardium: Normal pericardium with no significant pericardial effusion. Aorta: No aortic root dilation. Mild aortic root calcification. IVC: Normal size and normal respiratory collapse consistent with normal rightatrial pressure (<5 mmHg). CONCLUSIONS: Mild concentric left ventricular hypertrophy. Moderate enlargement of leftventricle cavity. Severe global left ventricular systolic dysfunction. Indeterminatediastolic function. Ejection Fraction is visually estimated to be 25-30 %. GlobalLongitudinal Strain is -7 %. GLS is abnormal. Mild enlargement of right ventricle. Moderate right ventricularhypokinesis. There is moderate enlargement of left atrium. There is mild enlargement of right atrium. Mitral valve leaflets appear mildly thickened. Mild to moderate mitralvalve regurgitation. Moderate pulmonary hypertension based on right ventricular systolicpressure. Estimated peak RVSP is 45 mmHg. Mild tricuspid regurgitation. Atrial fibrillation. Electronically Signed By: Parveen Moreno MD 04/24/2025 5:16:42 PM CDT Senait Caldera NP CV ECHO PROCEDURES Final Result * (ABNORMAL) Protime-INR (04/16/2025 1:41 PM CDT) INR 2.5(H) [facility] Comment: Reference Range 0.9-1.1 Moderate-intensity Warfarin Therapy 2.0-3.0 Higher-intensity Warfarin Therapy 3.0-4.0 PT 25.0(H) 9.0 - 11.5 sec [facility] Comment: For additional information, please refer to http://education.ReaLync/faq/ORE131 (This link is being provided for informational/ educational purposes only.) Blood 04/16/2025 1:41 PM CDT 04/16/2025 1:41 PM CDT Narrative [facility] - 04/17/2025 1:37 AM CDT FASTING:NO FASTING: NO Austen Lion MD LAB BLOOD ORDERABLES Fin al Result [facility] [address] [place] [address] * (ABNORMAL) Protime-INR (04/09/2025 2:20 PM CDT) INR 1.6(H) [facility] Comment: Reference Range 0.9-1.1 Moderate-intensity Warfarin Therapy 2.0-3.0 Higher-intensity Warfarin Therapy 3.0-4.0 PT 17.1(H) 9.0 - 11.5 sec [facility] Comment: For additional information, please refer to http://education.ReaLync/faq/LQQ307 (This link is being provided for informational/ educational purposes only.) Blood 04/09/2025 2:20 PM CDT 04/09/2025 2:20 PM CDT Austen Lion MD LAB BLOOD ORDERABLES Fin al Result [facility] [address] [place] [address] * ECG 12 lead (03/22/2025 11:40 AM CDT) 03/22/2025 11:4 0 AM CDT Senait Caldera NP ECG ORDERABLES Edited Re sult - Final from Last 3 [place] [address] [facility] MEDICARE MEDICARE [facility] Address: [address] [address] [place] [address] [employer] MEDICARE [employer] Care Teams Slotter Operator Relationship Specialty Start Date End Date Airam Serrano, MORRIS [address] [place] [address] PCP - General Family Medicine 03/22/25 Linda Barber, RN Registered Nurse Pulmonary Disease 05/05/23
--- OUTSIDE RECORDS SUMMARY | 2025-05-15 00:08 | XMS_ITS | Encounter Summary ---
Author Organization [facility] Healthcare Address [address] [place] [address] Care Team Providers Care Wharf Worker Name Role Phone Linda Barber RN Unavailable Macrina Airam Nunez FISH HATCHERY INSPECTOR Primary Care Provider [phone] Encounter Details Date Type Department Care Team (Late st Contact Info) Description 04/27/2025 Telephone [facility] Cardiology [address] [facility] [address] [place] [address] Austen Lion MD [address] [place] [address] Social History Tobacco Use Types Packs/Day Years Used Date Smoking Tobacco: Former Cigarettes Q uit: 06/17/1991 Smokeless Tobacco: Never Alcohol Use Standard Drinks/Week Comments No 0 (1 standard drink = 0.6 oz pur e alcohol) Sex and Gender Information Value Date Recorded Sex Assigned at Not on file 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 * Telephone Encounter - Senait Fair NP - 04/27/2025 2:51 PM CDT Yes he should go back on irbesartan, thank you. * Telephone Encounter - Paula Pedraza - 04/27/2025 1:16 PM CDT Pt returning call from Martha in regard to Entresto application. Contact: * Telephone Encounter - Martha Del Angel MA - 04/27/2025 1:07 PM CDT Left voicemail for patient to return call to office. I will offer patient assistance application for Entresto. * Telephone Encounter - Paula Pedraza - 04/27/2025 11:56 AM CDT Pt states Entresto is not affordable. It would cost him $346 a month. Requesting an alternative. Contact: documented in this encounter Plan of Treatment Not on file documented as of this encounter Visit Diagnoses Not on filedocumented in this encounter Care Teams Wharf Worker Relationship Specialty Start Date End Date Airam Serrano NP [address] [place] [address] PCP - General Family Medicine 03/22/25 Linda Barber, RN Registered Nurse Pulmonary Disease 05/05/23 documented as of this encounter
--- OUTSIDE RECORDS SUMMARY | 2025-05-15 00:08 | XMS_ITS | Encounter Summary ---
Author Organization [facility] Healthcare Address [address] [place] [address] Care Team Providers Care Sampling Theory Teacher Name Role Phone Bennie Ramos MD Primary Care Provider [phone] Linda Barber RN Unavailable Macrina Airam Nunez NP Primary Care Provider [phone] Encounter Details Date Type Department Care Team (Late st Contact Info) Description 10/03/2024 Orders Only [facility] Health Information Management [address] [place] [address] Scanning, Provider Social History Tobacco Use Types Packs/Day Years Used Date Smoking Tobacco: Former Cigarettes Q uit: 06/17/1991 Smokeless Tobacco: Never Alcohol Use Standard Drinks/Week Comments No 0 (1 standard drink = 0.6 oz pur e alcohol) Sex and Gender Information Value Date Recorded Sex Assigned at Not on file 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 Gender Identity Not on file Sexual Orientation Not on file documented as of this encounter Plan of Treatment Not on file documented as of this encounter Procedures Procedure Name Priority Date/Time Associated Diagnosis Comments SCAN - RADIOLOGY/IMAGING 10/03/2024 documented in this encounter Results * SCAN - RADIOLOGY/IMAGING (10/03/2024) Anatomical Region Laterality Modality Other us Provider Scanning Final Result documented in this encounter Visit Diagnoses Not on filedocumented in this encounter Care Teams Sampling Theory Teacher Relationship Specialty Start Date End Date Bennie Ramos MD PCP - General Family Medicine 08/03/22 03/21/25 Airam Serrano, BULK MAIL CLERK [address] [place] [address] PCP - General Family Medicine 03/22/25 Linda Barber, RN Registered Nurse Pulmonary Disease 05/05/23 documented as of this encounter
--- OUTSIDE RECORDS SUMMARY | 2025-05-15 00:08 | XMS_ITS | Referral Summary ---
Author Organization [place] [address] [place] [phone] Care Team Providers Care Maintenance Department Manager Name Role Phone Linda Barber RN Unavailable Macrina Airam Nunez NP Primary Care Provider [phone] Encounters Date Type Department Care Team Description 05/07/2025 Results Follow-Up [facility] Cardiology [address] [place] [address] [place] [phone] Senait Caldera NP Basic metabolic panel 05/07/2025 Anticoagulation Visit [facility] Cardiology [address] [place] [address] [place] [phone] Dorcas Charles RN Atrial fibrillation, unspecified type (HCC) (Primary Dx) 05/07/2025 11:30 AM CDT Office Visit [facility] Cardiology at [address] [place] [address] Austen Lion MD Atrial fibrillation, unspecified type (HCC) (Primary Dx); VPC's (ventricular premature complexes) 04/27/2025 Telephone [facility] Cardiology [address] [place] [address] [place] [phone] Austen Lion MD 04/24/2025 Results Follow-Up [facility] Cardiology [address] [place] [address] [place] [phone] Senait Caldera NP ECG 12 lead, Transthoracic Echo (TTE) Complete W Doppler/CF 04/24/2025 Telephone [facility] Cardiology [address] [address] [address] [place] [address] Senait Caldera NP 04/24/2025 1:30 PM CDT Procedure visit [facility] Cardiology at [address] [place] [address] Atrial fibrillation, unspecified type (HCC) 04/24/2025 1:00 PM CDT Ancillary Procedure [facility] Cardiology at [address] [place] [address] Atrial fibrillation, unspecified type (HCC) 04/17/2025 Anticoagulation Visit [facility] Cardiology [address] [place] [address] [place] [phone] Jo Chan RN Atrial fibrillation, unspecified type (HCC) (Primary Dx) 04/10/2025 Anticoagulation Visit [facility] Cardiology [address] [place] [address] [place] [phone] Jo Chan RN Atrial fibrillation, unspecified type (HCC) (Primary Dx) 04/10/2025 Telephone [facility] Cardiology [address] [place] [address] [place] [phone] Austen Lion MD 04/10/2025 Anticoagulation Visit [facility] Cardiology [address] [place] [address] [place] [phone] Jo Chan RN Atrial fibrillation, unspecified type (HCC) (Primary Dx) 04/04/2025 Anticoagulation Visit [facility] Cardiology at [address] [place] [address] Sonal Morgan RN Atrial fibrillation, unspecified type (HCC) (Primary Dx) 03/30/2025 Telephone [facility] Cardiology [address] [address] [address] [place] [address] Martha Del Angel MA 03/22/2025 Telephone [facility] Cardiology [address] [place] [phone] Austen Lion MD 03/22/2025 10:30 AM CDT Office Visit [facility] Cardiology [address] [place] [phone] Senait Caldera NP Atrial fibrillation, unspecified type (HCC) (Primary Dx); Left ventricular systolic dysfunction; Productive cough; DIONNE (obstructive sleep apnea) from Last 3 Months Allergies Active Allergy [...] -requesting imaging of CTA carotid performed at [facility] for evaluation. 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 Gender Identity Not on file Sexual Orientation [...] 05/07/2025 11:25 AM CDT Plan of Treatment Not on file Procedures [...] Protime-INR (05/05/2025 10:26 AM CDT) INR 3.7(H) [facility]lee Verma Comment: Reference Range 0.9-1.1 Moderate-intensity Warfarin Therapy 2.0-3.0 Higher-intensity Warfarin Therapy 3.0-4.0 PT 36.1(H) 9.0 - 11.5 sec [facility]lee Verma Comment: For additional information, please refer to http://education.Shoptagr/faq/QFO941 (This link is being provided for informational/ educational purposes only.) Blood 05/05/2025 10:2 6 AM CDT 05/05/2025 10:26 AM CDT us Austen Lion MD LAB BLOOD ORDERABLES Fin al Result Performing Organization Address City/[facility]/ZIP Co de Phone Number [facility] [address] [place] [address] * (ABNORMAL) Basic metabolic panel (05/05/2025 10:25 [...] 05/05/2025 10:25 AM CDT us Senait Caldera NP LAB BLOOD ORDERABLES Janet l Result [facility] [address] [address] [phone] * ECG 12 lead (04/24/2025 1:36 PM CDT) us Senait Cadlera GLOBAL CONSUMER SECTOR VICE PRESIDENT ECG ORDERABLES Final Res ult * TRANSTHORACIC ECHO (TTE) COMPLETE W DOPPLER/CF WO CONTRAST (04/24/2025 1:27 PM CDT) Estimated EF 25-30 % CONS SCIMAGE EF Mod BP 34 % CONS SCIMAGE Anatomical Region Laterality Modality Ultrasound 04/24/2025 1:01 PM CDT Narrative 04/24/2025 5:17 PM CDT [facility] Cardiology [address], [address], [place] [address] P:[phone] P:[phone] Echocardiographic Report Patient Name: RASHAAD COREAS P : 1950 Study Date: 04/24/2025 1:01:11 PM Gender: M Body Care Manager: LUCIANO Location: [facility] Ref Provider: SENAIT [...] FINDINGS: Interpretation Site: Exam was interpreted at [facility]. Left Ventricle: Mild concentric left ventricular [...] Procedure Note Parveen Moreno MD - 04/24/2025 [facility] Cardiology [address], [address] [address] P:[phone] P:[phone] Echocardiographic Report Patient Name: RASHAAD COREAS P : 1950 Study Date: 04/24/2025 1:01:11 PM Gender: M Body Care Manager: LUCIANO Location: [facility] Ref Provider: SENAIT [...] FINDINGS: Interpretation Site: Exam was interpreted at [facility]. Left Ventricle: Mild concentric left ventricular [...] Protime-INR (04/16/2025 1:41 PM CDT) INR 2.5(H) [facility] Comment: Reference Range 0.9-1.1 Moderate-intensity Warfarin Therapy 2.0-3.0 Higher-intensity Warfarin Therapy 3.0-4.0 PT 25.0(H) 9.0 - 11.5 sec [facility] Comment: For additional information, please refer to http://Tamago.Shoptagr/faq/AIM061 (This link is being provided for informational/ educational purposes only.) Blood 04/16/2025 1:41 PM CDT 04/16/2025 1:41 PM CDT Narrative [facility] - 04/17/2025 1:37 AM CDT FASTING:NO FASTING: NO Austen Lion MD LAB BLOOD ORDERABLES Fin al Result Performing Organization Address [facility] de Phone Number [facility] [address] [place] [address] * (ABNORMAL) Protime-INR (04/09/2025 2:20 PM CDT) INR 1.6(H) [facility] Verma Comment: Reference Range 0.9-1.1 Moderate-intensity Warfarin Therapy 2.0-3.0 Higher-intensity Warfarin Therapy 3.0-4.0 PT 17.1(H) 9.0 - 11.5 sec [facility] Comment: For additional information, please refer to http://Tamago.Shoptagr/faq/MYD571 (This link is being provided for informational/ educational purposes only.) Blood 04/09/2025 2:20 PM CDT 04/09/2025 2:20 PM CDT Austen Lion MD LAB BLOOD ORDERABLES Fin al Result Performing Organization Address [facility] de Phone Number [facility] [address] [place] [address] * ECG 12 lead (03/22/2025 11:40 AM CDT) 03/22/2025 11:4 0 AM CDT Senait Caldera GLOBAL CONSUMER SECTOR VICE PRESIDENT ECG ORDERABLES Edited Re sult - Final from Last 3 Months Insurance [facility] MEDICARE MEDICARE [facility] [place] [address] MEDICARE [employer] Care Teams Maintenance Department Manager Relationship Specialty Start Date End Date Airam Serrano, GLOBAL CONSUMER SECTOR VICE PRESIDENT [address] [place] [address] PCP - General Family Medicine 03/22/25 Linda Barber, RN Registered Nurse Pulmonary Disease 05/05/23
--- NOTE | 2025-05-15 10:00 | ECG_ITS ---
Test Date: 2025-05-15 10:03:01 Measurements Intervals [place] Rate: 67 P: 0 MS: 0 QRS: -22 QRSD: 134 T: 71 QT: 446 QTc: 473 Interpretive Statements ATRIAL FIBRILLATION BORDERLINE LEFT AXIS DEVIATION [QRS AXIS < -20] INTRAVENTRICULAR CONDUCTION DELAY [130+ ms QRS DURATION] ABNORMAL ECG No previous ECG available for comparison Electronically Signed On 05-15-2025 10:19:48 CDT by Austen Lion M.D.
--- NOTE | 2025-05-15 10:32 | SUR.PREOP ---
Pt unable to state what meds he took this morning but he reports that he held his metoprolol like he was supposed to.
[2025-05-15 10:45] LABS: Anion Gap 11 mmol/L (4-12); Blood Urea Nitrogen 12 mg/dL (9-20); Calcium 9.2 mg/dL (8.4-10.2); Carbon Dioxide 27 mmol/L (22-30); Chloride 97 mmol/L (98-107); Estimated CRCL calculation 57 ml/min; Estimated Glomerular Filt Rate 60; Glucose 106 mg/dL (65-110); Magnesium 1.3 mg/dL (1.6-2.3); Potassium 3.6 mmol/L (3.4-5.0); Sodium 135 mmol/L (137-145)
[2025-05-15] MEDS: MAGNESIUM SULF 1 GM/D5W 100 ML 1 GM/100 ML BAG IVPB (11:19)
--- NOTE | 2025-05-15 11:31 | P.HP_ITS ---
H&P: HPI History of Present Illness Date/Time: 05/15/25 11:31 Chief Complaint: Cardiomyopathy, recent onset of atrial fibrillation Narrative: This is a 74-year-old man with a history of a nonischemic cardiomyopathy which has been treated medically for several years. He recently was seen in the office feeling worse with worsening shortness of breath with activity was found to be in atrial fibrillation. The patient was started on amiodarone and arrange for cardioversion today. He takes warfarin for his systemic anticoagulation. His compliance with his medical regimen is unclear. Review of Systems Constitutional: Constitutional: Reports fatigue and Reports lethargy Eyes: Eyes: Reports no additional eye complaints ENT: Reports system reviewed and no additional complaints, except as documented Cardiovascular: Cardiovascular: Reports palpitations Respiratory: Respiratory: Reports dyspnea on exertion Gastrointestinal: Gastrointestinal: Reports no additional gastrointestinal complaints Musculoskeletal: Musculoskeletal: Reports no additional musculoskeletal complaints Integumentary/Breasts: Skin/Breast: Reports system reviewed and no additional complaints, except as docu Neurologic: Comments: Alert and oriented x3 [facility] Past Medical History Medical History (Updated 05/15/25 @ 11:35 by Austen Lion MD) Peripheral neuropathy Hyperlipidemia Obstructive sleep apnea TIA (transient ischemic attack) Osteoarthritis of right knee COPD (chronic obstructive pulmonary disease) Diabetes Sleep apnea Hypertension Surgical History Surgical History H/O total cystectomy Hx of tonsillectomy History of ankle surgery (~1979) Hx of total knee replacement (~2000) H/O knee surgery (~2002) History of ear surgery Family History Family History Mother Diabetes mellitus Family history of coronary artery disease Family history of malignant neoplasm of breast in first degree relative Family history of congestive heart failure Father Family history of lung cancer, Onset Age: 64 Social History Social History Social History: Caffeine-soda Smoking packs per day: 3 Smoking cigarettes per day: 60.0 Years smoked: 20 Smoking pack-years: 60.00 Smoking status: Former smoker Tobacco type: cigarettes Smoking end date: 11/01/87 Additional smoking assessment comments: DID NOT SMOKE 3 PKS THE ENTIRE TIME Alcohol intake: never Substance use: never Substance use type: does not use Do You Feel Safe in your Home?: Yes Lack of Transportation: No Lack of Food: Never True Current Housing: I Have Housing Concerned About Future Housing: No Difficulty Paying Gas/Electric Bills: No Difficulty Paying for Meds: No Currently Unemployed: No Education: Bachelor's Degree Difficulty w/ Childcare or Family Care: No Living arrangements: with family Spiritual care concerns: No Meds Home Medications and Allergies Home Medications ?Medication ?Instructions ?Recorded ?Confirmed ?Type spironolactone 25 mg tablet 25 mg PO DAILY 02/03/23 05/14/25 History metoprolol succinate 25 mg See Rx Instructions .Route 09/20/24 05/14/25 Rx tablet,extended release 24 hr .COMPLEX #90 tabs trazodone 150 mg tablet See Rx Instructions .Route 10/02/24 05/14/25 Rx .COMPLEX #90 tabs atorvastatin 40 mg tablet 40 mg PO DAILY #90 tabs 11/13/24 05/14/25 Rx tamsulosin 0.4 mg capsule See Rx Instructions .Route 11/30/24 05/14/25 Rx .COMPLEX #90 caps omeprazole 40 mg capsule,delayed 40 mg PO DAILY #90 caps 12/15/24 05/14/25 Rx release furosemide 20 mg tablet 20 mg PO QAM #90 tabs 03/21/25 05/14/25 Rx irbesartan 300 mg tablet 300 mg PO DAILY #90 tabs 05/09/25 05/14/25 Rx warfarin 6 mg tablet 6 mg PO DAILY 05/14/25 05/14/25 History Allergies Allergy/AdvReac Type Severity Reaction Status Date / Time Sulfa (Sulfonamide Allergy Unknown Unknown Verified 05/14/25 16:28 Antibiotics) codeine AdvReac Intermediate Gastrointestinal Verified 05/14/25 16:28 Upset Vital Signs Vital Signs - 24 hr 05/15/25 10:16 Temperature 36.3 C L Pulse Rate 63 Respiratory Rate 15 Blood Pressure 108/70 Pulse Oximetry 96 Oxygen Delivery Room Air Exam Const: General: comfortable and no acute distress Other: Pleasant overweight man no distress HENMT: Face/Nose/Sinus: Normal nares present Eyes: Sclera: sclerae normal Neck: Neck: supple and no JVD Resp: Effort & Inspection: normal respiratory effort Auscultation: clear to auscultation bilaterally Cardio: Rate: regular rate Rhythm: abnormal rhythm irregularly irregular GI: GI Palp: Yes Soft to palpation Auscultation: normal bowel sounds Skin: General skin exam: normal color Neuro: Other: Alert and oriented Extrem: General: normal to inspection H&P: Results Labs Labs: [facility] 05/15/25 10:07 Sodium 135 L Potassium 3.6 Chloride 97 L Carbon Dioxide 27 BUN 12 D Creatinine 1.19 Glucose 106 Calcium 9.2 Assessment and Plan Assessment and plan (1) Heart failure with reduced ejection fraction: Code(s): I50.20 - Unspecified systolic (congestive) heart failure Status: Acute (2) Atrial fibrillation with controlled ventricular rate: Code(s): I48.91 - Unspecified atrial fibrillation Status: Acute Plan 74-year-old man with history of nonischemic left ventricular dysfunction he has worsening symptoms of shortness of breath and exertional intolerance recently has been found to be in atrial fibrillation. Also contributing to this is a history of sleep apnea which is untreated as he has not been able to tolerate his CPAP device. He has been started on amiodarone as an outpatient. The patient today does not seem to be able to recall that medication. He also takes Coumadin for systemic anticoagulation. I am going to check his INR to ensure that he is anticoagulated before proceeding with DC cardioversion this morning. Austen Lion MD [facility]
[2025-05-15 11:57] LABS: INR 3.6; Prothrombin Time 35.0 Seconds (11.1-14.7)
--- NOTE | 2025-05-15 12:00 | ECG_ITS ---
Test Date: 2025-05-15 12:16:00 Measurements Intervals [place] Rate: 69 P: -27 OR: 168 QRS: -14 QRSD: 137 T: 55 QT: 486 QTc: 521 Interpretive Statements SINUS RHYTHM WITH FIRST-DEGREE AV BLOCK INTRAVENTRICULAR CONDUCTION DELAY [130+ ms QRS DURATION] ABNORMAL ECG Compared to ECG 05/15/2025 10:03:01 SINUS RHYTHM REPLACES ATRIAL FIBRILLATION Electronically Signed On 05-15-2025 13:24:43 CDT by Austen Lion M.D.
[2025-05-15] MEDS: PROPOFOL IV EMULSION 200 MG/20 ML VIAL 70 MG IV PUSH (12:12)
--- NOTE | 2025-05-15 12:25 | P.SEDATION_ITS ---
Moderate Sedation Note-Pt Data Patient Data Diagnosis: Recent onset of atrial fibrillation Left ventricular systolic dysfunction Present Complaint: This is a 74-year-old man with a history of nonischemic LV dysfunction who was found recently in the office to be in atrial fibrillation when he was complaining of increasing dyspnea. He has been loaded with amiodarone for outpatient cardioversion he takes Coumadin for systemic anticoagulation today's INR is 3.6. He is admitted as an outpatient to attempt to restore sinus rhythm Procedure to be performed/Plan: DC cardioversion Allergies Allergy/AdvReac Type Severity Reaction Status Date / Time Sulfa (Sulfonamide Allergy Unknown Unknown Verified 05/14/25 16:28 Antibiotics) codeine AdvReac Intermediate Gastrointestinal Verified 05/14/25 16:28 Upset Home Medications ?Medication ?Instructions ?Recorded ?Confirmed ?Type spironolactone 25 mg tablet 25 mg PO DAILY 02/03/23 05/14/25 History metoprolol succinate 25 mg See Rx Instructions .Route 09/20/24 05/14/25 Rx tablet,extended release 24 hr .COMPLEX #90 tabs trazodone 150 mg tablet See Rx Instructions .Route 10/02/24 05/14/25 Rx .COMPLEX #90 tabs atorvastatin 40 mg tablet 40 mg PO DAILY #90 tabs 11/13/24 05/14/25 Rx tamsulosin 0.4 mg capsule See Rx Instructions .Route 11/30/24 05/14/25 Rx .COMPLEX #90 caps omeprazole 40 mg capsule,delayed 40 mg PO DAILY #90 caps 12/15/24 05/14/25 Rx release furosemide 20 mg tablet 20 mg PO QAM #90 tabs 03/21/25 05/14/25 Rx irbesartan 300 mg tablet 300 mg PO DAILY #90 tabs 05/09/25 05/14/25 Rx warfarin 6 mg tablet 6 mg PO DAILY 05/14/25 05/14/25 History Current Medications: Active Medications Sodium Chloride (Normal Saline Iv) 1,000 mls @ 30 mls/hr IV CONT .Q24H [facility] Sedation/Anesthesia: No previous sedation/anesthesia problems (including family history). [facility] Past Medical History Medical History (Updated 05/15/25 @ 11:35 by Austen Lion MD) Peripheral neuropathy Hyperlipidemia Obstructive sleep apnea TIA (transient ischemic attack) Osteoarthritis of right knee COPD (chronic obstructive pulmonary disease) Diabetes Sleep apnea Hypertension Surgical History Surgical History H/O total cystectomy Hx of tonsillectomy History of ankle surgery (~1979) Hx of total knee replacement (~2000) H/O knee surgery (~2002) History of ear surgery Family History Family History Mother Diabetes mellitus Family history of coronary artery disease Family history of malignant neoplasm of breast in first degree relative Family history of congestive heart failure Father Family history of lung cancer, Onset Age: 64 Social History Social History Social History: Caffeine-soda Smoking packs per day: 3 Smoking cigarettes per day: 60.0 Years smoked: 20 Smoking pack-years: 60.00 Smoking status: Former smoker Tobacco type: cigarettes Smoking end date: 11/01/87 Additional smoking assessment comments: DID NOT SMOKE 3 PKS THE ENTIRE TIME Alcohol intake: never Substance use: never Substance use type: does not use Do You Feel Safe in your Home?: Yes Lack of Transportation: No Lack of Food: Never True Current Housing: I Have Housing Concerned About Future Housing: No Difficulty Paying Gas/Electric Bills: No Difficulty Paying for Meds: No Currently Unemployed: No Education: Bachelor's Degree Difficulty w/ Childcare or Family Care: No Living arrangements: with family Spiritual care concerns: No Mod Sed Physical Exam Physical Exam Pre Procedural Exam: Normal: Throat, Airway, Lungs, Heart Size, Heart Rate, Heart Rhythm, Neuro Exam and Extremities and Variation: Appearance (Pleasant overweight gentleman no apparent distress) Hours since solid foods: 12 Hours since liquid intake: 12 Mallampati Classification: class II Internal Medicine - PN: Obj Da Vital Signs Vital Signs: Vital Signs - 24 hr 05/15/25 10:16 05/15/25 12:12 05/15/25 12:17 Temperature 36.3 C L Pulse Rate 63 63 62 Respiratory Rate 15 14 12 Blood Pressure 108/70 137/92 H 129/92 H Pulse Oximetry 96 100 97 Oxygen Delivery Room Air Nasal Cannula Nasal Cannula Oxygen Flow Rate 2 6 Meds/Results Medications: Active Medications Generic Name Dose Route Start Last Admin Trade Name Freq PRN Reason Stop Dose Admin Sodium Chloride 1,000 mls @ 30 mls/hr 05/15/25 10:00 Normal Saline Iv IV CONT .Q24H OMID Labs 05/15/25 10:07 Labs: Laboratory Results - last 24 hr 05/15/25 05/15/25 10:07 11:32 PT 35.0 H INR 3.6 Sodium 135 L Potassium 3.6 Chloride 97 L Carbon Dioxide 27 Anion Gap 11 BUN 12 D Creatinine 1.19 Estim Creat Clear Calc 57 Estimated GFR 60 Glucose 106 Calcium 9.2 Magnesium 1.3 L ASA Classification/Sedation ASA Classification/Sedation ASA Class: III Emergent: No Risks: Risks, benefits and alternatives explained and patient/family accepted plan for sedation. Patient re-evaluated immediately prior to sedation.
--- NOTE | 2025-05-15 12:26 | P.PCNCC_ITS ---
Cardiac Cath Procedure Note Date of procedure:: 05/15/25 Performing physician:: Austen Lion MD Indication:: Atrial fibrillation Brief clinical history:: This is a 74-year-old man with nonischemic LV dysfunction and recent onset of atrial fibrillation resulting in worsening symptoms of dyspnea. Attempt at restoring sinus rhythm is being performed today in hopes of improving symptomatic status. He has been loaded with amiodarone since being seen in the office about 2 months ago. He is anticoagulated with warfarin. Procedure Procedure performed:: DC cardioversion Sedation/Medication given:: Intravenous propofol total dose of 70 mg Estimated blood loss:: No blood loss Procedure note:: Patient was brought to the cardiac tutorial laboratory supervisor holding area where he was in the postabsorptive state placed in the supine position with defibrillator patches in the AP position. Defibrillator was turned on at 200 joules output and synchronized. He was then sedated using the but the propofol as detailed above. This provided excellent sedation. He was counter shocked x1 with 200 joules in a synchronized fashion which restored normal sinus rhythm. Findings:: As above Conclusion:: Successful uncomplicated DC cardioversion to terminating atrial fib restoring normal sinus rhythm using 200 joules x1 shock Austen Lion MD [facility]
== END 2025-05-15 13:21 | disposition home or self-care (01) ==
PROVIDERS: PCP Nurse Practitioner Family; Visit Provider Specialist
PROC: 5A2204Z Restoration of Cardiac Rhythm, Single (ICD-10-PCS; principal; 2025-05-15 11:30)
DX: I48.91 Unspecified atrial fibrillation (principal); I11.0 Hypertensive heart disease with heart failure; I50.20 Unspecified systolic (congestive) heart failure; I42.8 Other cardiomyopathies; Z79.01 Long term (current) use of anticoagulants; Z87.891 Personal history of nicotine dependence
CPT/HCPCS: 36415; 80048; 83735; 85610; 92960; J2704; J3475; J7040

== ENCOUNTER 2025-05-17 13:44 | Emergency (ER) | payer MEDICARE, OTHER, SELFPAY ==
--- NOTE | ~2025-05-17 | CT_ITS ---
EXAMINATION: CT brain wo con DATE: 05/17/2025 15:23 INDICATION: Head injury on Coumadin . TECHNIQUE: Computed tomography (CT) of the head was performed without intravenous contrast. The mA wa s adjusted according to patient size. Iterative reconstruction technique was employed. The dose-lengt h product was 605.33 mGy-cm. COMPARISON: 07/01/2022; CTA brain carotid 01/21/2023; MR brain 02/20/2023. FINDINGS: No acute intracranial hemorrhage or extra-axial fluid collection. No hydrocephalus, mass, or herniation. No acute ischemic infarct. Unremarkable dural venous sinus attenuation. No acute osseous abnormality. Status post right mastoidectomy, opacification of the right frontal sinus with surrounding sclerosis, dependent secretions in the sphenoid sinus the remaining aerated spaces are clear. Mild atrophy and chronic white matter change. Atherosclerotic intracranial calcification. 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 IMPRESSION: No acute intracranial process. CT findings in the right frontal sinus that may represent acute sphenoid sinusitis and chronic right frontal sinusitis in the appropriate clinical context. Reviewed, dictated and finalized at location K. IMPRESSION: No acute intracranial process. CT findings in the right frontal sinus that may represent acute sphenoid sinusi tis and chronic right frontal sinusitis in the appropriate clinical context.
--- NOTE | ~2025-05-17 | CT_ITS ---
EXAMINATION: CT cervical spine wo con DATE: 05/17/2025 15:23 INDICATION: Neck pain status post fall TECHNIQUE: Computed tomography (CT) of the cervical spine was performed without intravenous contrast. Automated exposure control and iterative reconstruction technique were employed. The dose-length pro duct was 471.78 mGy-cm. COMPARISON: CTA brain carotid 01/21/2023. FINDINGS: Vertebral Body Alignment: Stable multilevel trace listheses. Craniocervical and atlantoaxial alignment: Mild-moderate degenerative change. Alignment intact. Osseous structures/fracture: No evidence of a lytic or blastic process in the visualized spine. No e vidence of acute fracture. Cervical soft tissues: The paraspinal soft tissues planes are maintained. Right pleural bleb. Periphe ral interstitial changes. Degenerative changes: Degenerative changes, without severe neural foraminal or central canal narrowin g. Moderate left C3-4 neural foraminal narrowing secondary to degenerative uncovertebral joint and fa cet change. IMPRESSION: No acute fracture or traumatic malalignment in the cervical spine. Reviewed, dictated and finalized at location K.
--- OUTSIDE RECORDS SUMMARY | 2025-05-17 13:50 | XMS_ITS | Encounter Summary ---
Author Organization [facility] Healthcare Address [address] [place] [address] Care Team Providers Care Dental Patient Coordinator Name Role Phone Bennie Ramos MD Primary Care Provider [phone] Linda Barber RN Unavailable Macrina Airam Nunez NP Primary Care Provider [phone] Encounter Details Date Type Department Care Team (Late st Contact Info) Description 10/03/2024 Orders Only [facility] Health Information Management [address] [place] [address] Scanning, Provider Social History Tobacco Use Types Packs/Day Years Used Date Smoking Tobacco: Former Cigarettes Q uit: 06/17/1991 Smokeless Tobacco: Never Alcohol Use Standard Drinks/Week Comments No 0 (1 standard drink = 0.6 oz pur e alcohol) Sex and Gender Information Value Date Recorded Sex Assigned at Not on file 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
--- OUTSIDE RECORDS SUMMARY | 2025-05-17 13:50 | XMS_ITS | Continuity of Care Document ---
Author Organization [facility] Address [address] [place] [address] Phone Care Team Providers Care Pelt Inspector Name Role Phone Doisy, Edward Unavailable Unavailable Advance Directives Directive Yes / No Effective Date File Name No Information Encounters Encounter Description Practice Location Reason(s) For Visit Diagnoses Date Provider Providers Copied on Encounter [facility], [address], [place], [place], [id number], [place] tel:[phone] [facility] No Information Sep-1 0-200 3 Doisy Edward. [address] , [address], [place], [address], [place]. tel:[phone] Referring Provider: Zheng Frey MD [place], [address] [place] [address], [address]. tel:[phone] Family History Family Member Type Diagnosis Age At Onset No Information Payers Payer name Insurance type Covered green party ID Authoriza tion(s) No Information Social History [...]
--- OUTSIDE RECORDS SUMMARY | 2025-05-17 13:50 | XMS_ITS | Encounter Summary ---
Author Organization [facility] Healthcare Address [address] [place] [address] Care Team Providers Care Recorder Helper Seismograph Name Role Phone Linda Barber RN Unavailable Macrina Airam Nunez METAL WELDER Primary Care Provider [phone] Encounter Details Date Type Department Care Team (Late st Contact Info) Description 04/27/2025 Telephone [facility] Medical Group Cardiology [address] [place] [address] Austen Lion MD [address] [place] [address] Social History Tobacco Use Types Packs/Day Years Used Date Smoking Tobacco: Former Cigarettes Q uit: 06/17/1991 Smokeless Tobacco: Never Alcohol Use Standard Drinks/Week Comments No 0 (1 standard drink = 0.6 oz pur e alcohol) Sex and Gender Information Value Date Recorded Sex Assigned at Not on file 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
--- OUTSIDE RECORDS SUMMARY | 2025-05-17 13:50 | XMS_ITS | Referral Summary ---
Author Organization [place] [address] [address] [place] [address] Care Team Providers Care Industrial Paramedic Name Role Phone Linda Barber RN Unavailable Macrina Airam Nunez TELLERS SUPERVISOR Primary Care Provider [phone] Encounters Date Type Department Care Team Description 05/15/2025 Anticoagulation Visit [facility] Medical [facility] Cardiology [address] [place] [address] [address] [place] [address] Dorcas Charles RN Atrial fibrillation, unspecified type (HCC) (Primary Dx) 05/07/2025 Results Follow-Up [facility] Cardiology [address] [place] [address] [address] [place] [address] Senait Caldera NP Basic metabolic panel 05/07/2025 Anticoagulation Visit [facility] Cardiology [address] [place] [address] [address] [place] [address] Dorcas Charles RN Atrial fibrillation, unspecified type (HCC) (Primary Dx) 05/07/2025 11:30 AM CDT Office Visit [facility] Medical Group Cardiology at [address] [place] [address] Austen Lion MD Atrial fibrillation, unspecified type (HCC) (Primary Dx); VPC's (ventricular premature complexes) 04/27/2025 Telephone [facility] Cardiology [address] [place] [address] [address] [place] [address] Austen Lion MD 04/24/2025 Results Follow-Up [facility] Cardiology [address] [place] [address] [place] [address] Senait Caldera NP ECG 12 lead, Transthoracic Echo (TTE) Complete W Doppler/CF 04/24/2025 Telephone [facility] Cardiology [address] [place] [address] [place] [address] Senait Caldera NP 04/24/2025 1:30 PM CDT Procedure visit [facility] Cardiology at [address] [place] [address] Atrial fibrillation, unspecified type (HCC) 04/24/2025 1:00 PM CDT Ancillary Procedure [facility] Cardiology at [address] [place] [address] Atrial fibrillation, unspecified type (HCC) 04/17/2025 Anticoagulation Visit [facility] Cardiology [address] [place] [address] [place] [address] Jo Chan RN Atrial fibrillation, unspecified type (HCC) (Primary Dx) 04/10/2025 Anticoagulation Visit [facility] Cardiology [address] [place] [address] [place] [address] Jo Chan RN Atrial fibrillation, unspecified type (HCC) (Primary Dx) 04/10/2025 Telephone [facility] Cardiology [address] [place] [address] Austen Lion MD 04/10/2025 Anticoagulation Visit [facility] Cardiology [address] [place] [address] [place] [address] Jo Chan RN Atrial fibrillation, unspecified type (HCC) (Primary Dx) 04/04/2025 Anticoagulation Visit [facility] Cardiology at [address] [place] [address] Sonal Morgan RN Atrial fibrillation, unspecified type (HCC) (Primary Dx) 03/30/2025 Telephone [facility] Cardiology [address] [facility] [address] [place] [address] Martha Del Angel MA 03/22/2025 Telephone [facility] Cardiology [address] [place] [address] Austen Lion MD 03/22/2025 10:30 AM CDT Office Visit [facility] Cardiology [address] [facility] [address] [place] [address] Senait Caldera NP Atrial fibrillation, unspecified [...] -requesting imaging of CTA carotid performed at [facility] for evaluation. 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 Gender Identity Not on file Sexual Orientation [...] Priority Date/Time Associated Diagnosis Comments PROTIME-INR Routine 05/15/2025 PROTIME-INR Routine 05/05/2025 10:26 AM CDT Atrial [...] Last 3 Months Results * (ABNORMAL) Protime-INR (05/15/2025) INR 3.60(A) 0.90 - 1.10 EXTERNAL LAB Blood Historical Provider LAB BLOOD ORDERABLES Janet l Result EXTERNAL LAB * (ABNORMAL) Protime-INR (05/05/2025 10:26 AM CDT) INR 3.7(H) [facility] Comment: Reference Range 0.9-1.1 Moderate-intensity Warfarin Therapy 2.0-3.0 Higher-intensity Warfarin Therapy 3.0-4.0 PT 36.1(H) 9.0 - 11.5 sec [facility] jacoby Verma Comment: For additional information, please refer to http://education.EV Connect/faq/TRO464 (This link is being provided for informational/ educational purposes only.) Blood 05/05/2025 10:2 6 AM CDT 05/05/2025 10:26 AM CDT Austen Lion MD LAB BLOOD ORDERABLES Fin al Result Performing Organization Address City/[facility]/ZIP Co de Phone Number [facility] [address] [place] [address] * (ABNORMAL) Basic metabolic panel (05/05/2025 10:25 [...] 5 AM CDT 05/05/2025 10:25 AM CDT Senait Caldera TELLERS SUPERVISOR LAB BLOOD ORDERABLES Janet l Result [facility] [address] [place] [address] * ECG 12 lead (04/24/2025 1:36 PM CDT) Senait Caldera TELLERS SUPERVISOR ECG ORDERABLES Final Res ult * TRANSTHORACIC ECHO (TTE) COMPLETE W DOPPLER/CF WO CONTRAST (04/24/2025 1:27 PM CDT) Estimated EF 25-30 % CONS SCIMAGE EF Mod BP 34 % CONS SCIMAGE Anatomical Region Laterality Modality Ultrasound 04/24/2025 1:01 PM CDT Narrative 04/24/2025 5:17 PM CDT [facility] Medical Group Cardiology [address] , [address], [place] [address] [phone] P:[phone] Echocardiographic Report Patient Name: RASHAAD COREAS P : 1950 Study Date: 04/24/2025 1:01:11 PM Gender: M Solution Design And Analysis Manager: LUCIANO Location: [facility] Ref Provider: SENAIT [...] FINDINGS: Interpretation Site: Exam was interpreted at [facility]. Left Ventricle: Mild concentric left ventricular hypertrophy. [...] Procedure Note Parveen Moreno MD - 04/24/2025 [facility] Medical Group Cardiology [address], [address], [place] [address] P:[phone] P:[phone] Echocardiographic Report Patient Name: RASHAAD COREAS P : 1950 Study Date: 04/24/2025 1:01:11 PM Gender: M Solution Design And Analysis Manager: LUCIANO Location: [facility] Ref Provider: SENAIT [...] FINDINGS: Interpretation Site: Exam was interpreted at [facility]. Left Ventricle: Mild concentric left ventricular hypertrophy. [...] Protime-INR (04/16/2025 1:41 PM CDT) INR 2.5(H) [facility] Verma Comment: Reference Range 0.9-1.1 Moderate-intensity Warfarin Therapy 2.0-3.0 Higher-intensity Warfarin Therapy 3.0-4.0 PT 25.0(H) 9.0 - 11.5 sec [facility] Comment: For additional information, please refer to http://education.EV Connect/faq/GAS449 (This link is being provided for informational/ educational purposes only.) Blood 04/16/2025 1:41 PM CDT 04/16/2025 1:41 PM CDT Narrative [facility] - 04/17/2025 1:37 AM CDT FASTING:NO FASTING: NO Austen Lion MD LAB BLOOD ORDERABLES Fin al Result [facility] [address] [place] [address] * (ABNORMAL) Protime-INR (04/09/2025 2:20 PM CDT) INR 1.6(H) [facility] Verma Comment: Reference Range 0.9-1.1 Moderate-intensity Warfarin Therapy 2.0-3.0 Higher-intensity Warfarin Therapy 3.0-4.0 PT 17.1(H) 9.0 - 11.5 sec [facility] Comment: For additional information, please refer to http://education.EV Connect/faq/BUO115 (This link is being provided for informational/ educational purposes only.) Blood 04/09/2025 2:20 PM CDT 04/09/2025 2:20 PM CDT Austen Lion MD LAB BLOOD ORDERABLES Fin al Result [facility] [address] [place] [address] * ECG 12 lead (03/22/2025 11:40 AM CDT) 03/22/2025 11:4 0 AM CDT Senait Caldera TELLERS SUPERVISOR ECG ORDERABLES Edited Re sult - Final from Last 3 Months Insurance [facility] MEDICARE [facility] Address: [id number] [place] [phone] MEDICARE [employer] [place] MEDICARE [employer] [place] Care Teams Industrial Paramedic Relationship Specialty Start Date End Date Airam Serrano, MORRIS [address] [place] [id number] PCP - General Family Medicine 03/22/25 Linda Barber, RN Registered Nurse Pulmonary Disease 05/05/23
--- OUTSIDE RECORDS SUMMARY | 2025-05-17 13:50 | XMS_ITS | Clinical Summary ---
Author Organization [facility] Address [address] [place] [address] Care Team Providers Care Streaming Media Specialist Name Role Phone Bennie Ramos Primary Care Provider Unavailabl e Source Comments [facility],non-owned Affiliates and Associated Physician Practices is amultiple site organization consisting of ambulatory clinics and hospital sitesin [place], [place], [place] and [place]. This disclosure is being madepursuant to the Care Everywhere program and may not contain all information available regarding this patient. Last updated 18.[facility] Allergies Active Allergy Reactions Criticality Noted Date [...] for Pain 42 tablet 12/12/2024 5:37 PM OVERSIZE LOAD PILOT ESCORT 5 Active Active Problems Problem Noted Date [...] Recorded Patient Health Questionnaire-2 Score 3 12/30/2023 [facility] [place] [facility] Occupat ional Health - Occupational Stress [...] any time in the past 12 m [facility], were you homeless or living in a prison (including now)? No 12/12/2024 Sex and Gender Information Value Date Recorded Sex Assigned at Not on file Legal Sex Male 12:14 PM CDT Gender Identity Not on file Sexual Orientation Not on file Last Filed Vital Signs Vital Sign Reading Time Taken Comments Blood Pressure 136/67 12/12/2024 12:50 PM OVERSIZE LOAD PILOT ESCORT Pulse 72 12/12/2024 12:50 PM OVERSIZE LOAD PILOT ESCORT Temperature 36.4 C (97.5 F) 12/12/2024 12:50 PM OVERSIZE LOAD PILOT ESCORT Respiratory Rate 18 12/12/2024 12:51 PM OVERSIZE LOAD PILOT ESCORT Oxygen Saturation 93% 12/12/2024 12:50 PM OVERSIZE LOAD PILOT ESCORT Inhaled Oxygen Concentration 21% 12/12/2024 3 :01 PM OVERSIZE LOAD PILOT ESCORT Weight 107.5 kg (237 lb) 12/11/2024 8:53 AM OVERSIZE LOAD PILOT ESCORT Height 175.3 cm (5' 9) 12/11/2024 8:53 AM OVERSIZE LOAD PILOT ESCORT Body Mass Index 35 12/11/2024 8:53 AM OVERSIZE LOAD PILOT ESCORT Plan of Treatment Health Maintenance Due Date [...] this topic Medical Devices Implanted Type Area Systems Specialist Device Identifier Shelf Expiration Date Model / Serial / Lot Tray Tib 79mm Kn Cocr I Beam Implanted:Qty: 1 on 12/11/2024 by Wayne Fitzpatrick MD at [facility] Right: Knee [employer] 09/05/2034 [id number] / / [id number] Cmpnt Fem Kn Rt Cr Cmnt Prm Vngrd Intlk Implanted:Qty: 1 on 12/11/2024 by Wayne Fitzpatrick MD at [facility] Right: Knee [employer] 09/12/2034 [id number] / / [id number] Cmpnt Ptlr Std 31mm 3 Pg Kn Ser A Implanted:Qty: 1 on 12/11/2024 by Wayne Fitzpatrick MD at [facility] Right: Knee [employer] 10/09/2029 [id number] / / [id number] Brng [id number] Vngrd Vivacit-E Kn Ant Stab Implanted:Qty: 1 on 12/11/2024 by Wayne Fitzpatrick MD at [facility] Right: Knee [employer] 01/13/2026 [id number] / / [id number] Cmnt Bone Plc R 40gm Grn Implanted:Qty: 2 on 12/11/2024 by Wayne Fitzpatrick MD at [facility] Right: Knee [employer] 02/06/2027 [id number] / / [id number] Insurance MEDICARE [facility] [place] [id number] MEDICARE Advance Directives * Full Code (Latest Code Status on File) Date Activated Date Inactivated Comments 12/11/2024 2:43 PM 12/12/2024 7:10 PM Care Teams Streaming Media Specialist Relationship Specialty Start Date End Date Bennie Ramos PCP - General 11/02/24
--- OUTSIDE RECORDS SUMMARY | 2025-05-17 13:50 | XMS_ITS | Clinical Summary ---
Author Organization [facility] [address] Address [address] [place] [address] Care Team Providers Care Practical Nurse Clinical Coordinator Name Role Phone Linda Barber RN Unavailable Macrina Airam Nunez SEAM FINISHER Primary Care Provider [phone] Allergies Active Allergy Reactions Criticality Noted Date [...] -requesting imaging of CTA carotid performed at [facility] for evaluation. Primary hypertension 03/11/2023 Assessment & [...] Department Care Team Description 05/15/2025 Anticoagulation Visit [facility] Medical Group Cardiology [address] [facility] [address] [place] [address] Dorcas Charles RN Atrial fibrillation, unspecified type (HCC) (Primary Dx) 05/07/2025 11:30 AM CDT Office Visit [facility] Medical Group Cardiology at [address] [place] [address] Austen Lion MD Atrial fibrillation, unspecified type (HCC) (Primary Dx); VPC's (ventricular premature complexes) 05/07/2025 Results Follow-Up [facility] Cardiology [address] [place] [address] [place] [address] Senait Caldera NP Basic metabolic panel 05/07/2025 Anticoagulation Visit [facility] Cardiology [address] [place] [address] [place] [address] Dorcas Charles RN Atrial fibrillation, unspecified type (HCC) (Primary Dx) 04/27/2025 Telephone [facility] Cardiology [address] [place] [address] [place] [address] Austen Lion MD 04/24/2025 1:30 PM CDT Procedure visit [facility] Cardiology at [address] [place] [address] Atrial fibrillation, unspecified type (HCC) 04/24/2025 1:00 PM CDT Ancillary Procedure [facility] Cardiology at [address] [place] [address] Atrial fibrillation, unspecified type (HCC) 04/24/2025 Results Follow-Up [facility] Cardiology [address] [place] [address] [place] [address] Senait Caldera NP ECG 12 lead, Transthoracic Echo (TTE) Complete W Doppler/CF 04/24/2025 Telephone [facility] Cardiology [address] [place] [address] [place] [address] Senait Caldera NP 04/17/2025 Anticoagulation Visit [facility] Cardiology [address] [place] [address] [place] [address] Jo Chan RN Atrial fibrillation, unspecified type (HCC) (Primary Dx) 04/10/2025 Anticoagulation Visit [facility] Cardiology [address] [place] [address] [place] [address] Jo Chan RN Atrial fibrillation, unspecified type (HCC) (Primary Dx) 04/10/2025 Telephone [facility] Cardiology [address] [place] [address] [address], [place] [address] Austen Lion MD 04/10/2025 Anticoagulation Visit [facility] Cardiology [address] [place] [address] [place] [address] Jo Chan RN Atrial fibrillation, unspecified type (HCC) (Primary Dx) 04/04/2025 Anticoagulation Visit [facility] Cardiology at [address] [place] [address] Sonal Morgan RN Atrial fibrillation, unspecified type (HCC) (Primary Dx) 03/30/2025 Telephone [facility] Cardiology [address] [place] [address] [place] [address] Martha eDl Angel MA 03/22/2025 10:30 AM CDT Office Visit [facility] Cardiology [address] [place] [address] [address] [place] [address] Senait Caldera NP Atrial fibrillation, unspecified type (HCC) (Primary Dx); Left ventricular systolic dysfunction; Productive cough; DIONNE (obstructive sleep apnea) 03/22/2025 Telephone [facility] Cardiology [address] [place] [address] [address] [place] [address] Austen Lion MD from Last 3 [...] on file 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 Gender Identity Not on file Sexual Orientation [...] Blood Historical Provider LAB BLOOD ORDERABLES Janet medrano Result EXTERNAL LAB * (ABNORMAL) Protime-INR (05/05/2025 10:26 AM CDT) INR 3.7(H) [facility] Comment: Reference Range 0.9-1.1 Moderate-intensity Warfarin Therapy 2.0-3.0 Higher-intensity Warfarin Therapy 3.0-4.0 PT 36.1(H) 9.0 - 11.5 sec [facility] Comment: For additional information, please refer to http://education.[employer].Patient Feed/faq/SYV162 (This link is being provided for informational/ educational purposes only.) Blood 05/05/2025 10:2 6 AM CDT 05/05/2025 10:26 AM CDT Austen Lion MD LAB BLOOD ORDERABLES Fin al Result [facility] [address] [place] [address] * (ABNORMAL) Basic metabolic panel (05/05/2025 10:25 AM CDT) [facility] Glucose 107(H) 65 - 99 mg/dL [facility] [...] CDT 05/05/2025 10:25 AM CDT Senait Caldera NP LAB BLOOD ORDERABLES Janet l Result [facility] [address] [place] [address] * ECG 12 lead (04/24/2025 1:36 PM CDT) Senait Caldera SEAM FINISHER ECG ORDERABLES Final Res ult * TRANSTHORACIC ECHO (TTE) COMPLETE W DOPPLER/CF WO CONTRAST (04/24/2025 1:27 PM CDT) [facility] Estimated EF 25-30 % CONS SCIMAGE EF Mod BP 34 % CONS SCIMAGE Anatomical Region Laterality Modality Ultrasound 04/24/2025 1:01 PM CDT Narrative 04/24/2025 5:17 PM CDT [facility] Cardiology [address], [address], [place] [address] P:[phone] P:[phone] Echocardiographic Report Patient Name: RASHAAD COREAS P : 1950 Study Date: 04/24/2025 1:01:11 PM Gender: M Customer Quality Specialist: LUCIANO Location: [facility] Ref Provider: SENAIT CALDERA [...] FINDINGS: Interpretation Site: Exam was interpreted at [facility]. Left Ventricle: Mild concentric left ventricular hypertrophy. [...] Procedure Note Parveen Moreno MD - 04/24/2025 [facility] Cardiology [address], [address], [place] [address] [phone] P:[phone] Echocardiographic Report Patient Name: RASHAAD COREAS P : 1950 Study Date: 04/24/2025 1:01:11 PM Gender: M Customer Quality Specialist: LUCIANO Location: [facility] Ref Provider: SENAIT CALDERA [...] FINDINGS: Interpretation Site: Exam was interpreted at [facility]. Left Ventricle: Mild concentric left ventricular hypertrophy. [...] Protime-INR (04/16/2025 1:41 PM CDT) INR 2.5(H) [facility] Comment: Reference Range 0.9-1.1 Moderate-intensity Warfarin Therapy 2.0-3.0 Higher-intensity Warfarin Therapy 3.0-4.0 PT 25.0(H) 9.0 - 11.5 sec [facility] Comment: For additional information, please refer to http://BillMyParents, Inc..TranslationExchange/faq/RCW277 (This link is being provided for informational/ educational purposes only.) Blood 04/16/2025 1:41 PM CDT 04/16/2025 1:41 PM CDT Narrative [facility] - 04/17/2025 1:37 AM CDT FASTING:NO FASTING: NO Austen Lion MD LAB BLOOD ORDERABLES Fin al Result Performing Organization Address [facility] de Phone Number [facility] [address] [place] [address] * (ABNORMAL) Protime-INR (04/09/2025 2:20 PM CDT) INR 1.6(H) [facility] Comment: Reference Range 0.9-1.1 Moderate-intensity Warfarin Therapy 2.0-3.0 Higher-intensity Warfarin Therapy 3.0-4.0 PT 17.1(H) 9.0 - 11.5 sec [facility] Comment: For additional information, please refer to http://BillMyParents, Inc[employer]TranslationExchange/faq/QAM482 (This link is being provided for informational/ educational purposes only.) Blood 04/09/2025 2:20 PM CDT 04/09/2025 2:20 PM CDT Austen Lion MD LAB BLOOD ORDERABLES Fin al Result Performing Organization Address [facility] de Phone Number [facility] [address] [place] [address] * ECG 12 lead (03/22/2025 11:40 AM CDT) 03/22/2025 11:4 0 AM CDT Senait Caldera SEAM FINISHER ECG ORDERABLES Edited Re sult - Final from Last 3 Months Insurance [employer] [place] MEDICARE MEDICARE [employer] [place] JIMMIE KOVACS [id number] [place] [address] [employer] [place] Care Teams Practical Nurse Clinical Coordinator Relationship Specialty Start Date End Date Airam Serrano, SEAM FINISHER [address] [place] [address] PCP - General Family Medicine 03/22/25 Linda Barber, RN Registered Nurse Pulmonary Disease 05/05/23
--- OUTSIDE RECORDS SUMMARY | 2025-05-17 13:50 | XMS_ITS | Encounter Summary ---
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
--- OUTSIDE RECORDS SUMMARY | 2025-05-17 13:50 | XMS_ITS | Encounter Summary ---
Author Organization [facility] Address [address] [place] [address] Phone Care Team Providers Care Bed Placement Coordinator Name Role Phone Bennie Ramos MD Primary Care Provider [phone] Linda Barber RN Unavailable Macrina Airam Nunez OUTDOOR FITNESS TRAINER Primary Care Provider [phone] Encounter Details Date Type Department Care Team [...] on file Legal Sex Male 12:40 AM TURN OUT Gender Identity Not on file Sexual Orientation [...] on filedocumented in this encounter Care Teams Bed Placement Coordinator Relationship Specialty Start Date End Date Bennie Ramos MD PCP - General Family Medicine 08/03/22 03/21/25 Airam Serrano, OUTDOOR FITNESS TRAINER [address] [place] [address] PCP - General Family Medicine 03/22/25 Linda Barber, RN Registered Nurse Pulmonary Disease 05/05/23 documented as of this encounter
--- OUTSIDE RECORDS SUMMARY | 2025-05-17 13:50 | XMS_ITS | Encounter Summary ---
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
[2025-05-17 14:07] VITALS: BP 116/70; PULSE 54; RESP 20; TEMP 36.2; O2SAT 93
--- OUTSIDE RECORDS SUMMARY | 2025-05-17 14:19 | XMS_ITS | Encounter Summary ---
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
--- OUTSIDE RECORDS SUMMARY | 2025-05-17 14:19 | XMS_ITS | Continuity of Care Document ---
Author Organization [facility] Address [address] [place] [address] Phone Care Team Providers Care It Quality Assurance Analyst Name Role Phone Doisy, Edward Unavailable Unavailable Advance Directives Directive Yes / No Effective Date File Name No Information Encounters Encounter Description Practice Location Reason(s) For Visit Diagnoses Date Provider Providers Copied on Encounter [facility], [address], [place], [place], [id number], [place] tel:[phone] [facility] No Information Sep-1 0-200 3 Doisy Edward. [address] , [address], [place], [address], [place]. tel:[phone] Referring Provider: Zheng Frey MD [facility], [address] [place] [address], [address]. tel:[phone] Family History Family Member Type Diagnosis Age [...]
--- OUTSIDE RECORDS SUMMARY | 2025-05-17 14:19 | XMS_ITS | Encounter Summary ---
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
--- OUTSIDE RECORDS SUMMARY | 2025-05-17 14:19 | XMS_ITS | Encounter Summary ---
Author Organization [facility] Address [address] [place] [address] Phone Care Team Providers Care Verifying Machine Operator Name Role Phone Bennie Ramos MD Primary Care Provider [phone] Linda Barber RN Unavailable Macrina Airam Nunez PRINT LINE FEEDER Primary Care Provider [phone] Encounter Details Date Type Department Care Team [...] on file Legal Sex Male 12:40 AM PATIENT'S LIBRARIAN Gender Identity Not on file Sexual Orientation [...] on filedocumented in this encounter Care Teams Verifying Machine Operator Relationship Specialty Start Date End Date Bennie Ramos MD PCP - General Family Medicine 08/03/22 03/21/25 Airam Serrano, PRINT LINE FEEDER [address] [place] [address] PCP - General Family Medicine 03/22/25 Linda Barber, RN Registered Nurse Pulmonary Disease 05/05/23 documented as of this encounter
--- OUTSIDE RECORDS SUMMARY | 2025-05-17 14:19 | XMS_ITS | Encounter Summary ---
Author Organization [facility] Address [address] [place] [address] Care Team Providers Care Gaming Associate Name Role Phone Linda Barber RN Unavailable Macrina Airam Nunez CORPORATE HUMAN RESOURCES MANAGER Primary Care Provider [phone] Encounter Details Date Type Department Care Team (Late st Contact Info) Description 04/27/[address] 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
--- OUTSIDE RECORDS SUMMARY | 2025-05-17 14:20 | XMS_ITS | Clinical Summary ---
Author Organization [facility] Address [address] [place] [address] Care Team Providers Care Tensile Tester Name Role Phone Bennie Ramos Primary Care Provider Unavailabl e Source Comments [facility],non-owned Affiliates and Associated Physician Practices is amultiple site organization consisting of ambulatory clinics and hospital sitesin [place], [place], [place] and [place]. This disclosure is being madepursuant to the Care Everywhere program and may not contain all information available regarding this patient. Last updated 18.[facility] Allergies Active Allergy Reactions Criticality Noted Date [...] for Pain 42 tablet 12/12/2024 5:37 PM CYLINDER DYER 5 Active Active Problems Problem Noted Date [...] Recorded Patient Health Questionnaire-2 Score 3 12/30/2023 [facility] [place] of Occupat ional Health - Occupational Stress [...] any time in the past 12 m [facility], were you homeless or living in a senior living (including now)? No 12/12/2024 Sex and Gender Information Value Date Recorded Sex Assigned at Not on file Legal Sex Male 12:14 PM CDT Gender Identity Not on file Sexual Orientation Not on file Last Filed Vital Signs Vital Sign Reading Time Taken Comments Blood Pressure 136/67 12/12/2024 12:50 PM CYLINDER DYER Pulse 72 12/12/2024 12:50 PM CYLINDER DYER Temperature 36.4 C (97.5 F) 12/12/2024 12:50 PM CYLINDER DYER Respiratory Rate 18 12/12/2024 12:51 PM CYLINDER DYER Oxygen Saturation 93% 12/12/2024 12:50 PM CYLINDER DYER Inhaled Oxygen Concentration 21% 12/12/2024 3 :01 PM CYLINDER DYER Weight 107.5 kg (237 lb) 12/11/2024 8:53 AM CYLINDER DYER Height 175.3 cm (5' 9) 12/11/2024 8:53 AM CYLINDER DYER Body Mass Index 35 12/11/2024 8:53 AM CYLINDER DYER Plan of Treatment Health Maintenance Due Date [...] this topic Medical Devices Implanted Type Area Music Library Assistant Device Identifier Shelf Expiration Date Model / Serial / Lot Tray Tib 79mm Kn Cocr I Beam Implanted:Qty: 1 on 12/11/2024 by Wayne Fitzpatrick MD at [facility] Right: Knee [employer] 09/05/2034 [id number] / / [id number] Cmpnt Fem Kn Rt Cr Cmnt Prm Vngrd Intlk Implanted:Qty: 1 on 12/11/2024 by Wayne Fitzpatrick MD at [facility] Right: Knee [employer] 09/12/2034 [id number] / / [id number] Cmpnt Ptlr Std 31mm 3 Pg Kn Ser A Implanted:Qty: 1 on 12/11/2024 by Wayne Fitzpatrick MD at [facility] Right: Knee [employer] 10/09/2029 [id number] / / [id number] Brng 39m36ml Vngrd Vivacit-E Kn Ant Stab Implanted:Qty: 1 on 12/11/2024 by Wayne Fitzpatrick MD at [facility] Right: Knee [employer] 01/13/2026 [id number] / / [id number] Cmnt Bone Plc R 40gm Grn Implanted:Qty: 2 on 12/11/2024 by Wayne Fitzpatrick MD at [facility] Right: Knee [employer] 02/06/2027 [id number] / / [id number] Insurance MEDICARE [facility] [place] [address] MEDICARE Advance Directives * Full Code (Latest Code Status on File) Date Activated Date Inactivated Comments 12/11/2024 2:43 PM 12/12/2024 7:10 PM Care Teams Tensile Tester Relationship Specialty Start Date End Date Bennie Ramos PCP - General 11/02/24
--- OUTSIDE RECORDS SUMMARY | 2025-05-17 14:20 | XMS_ITS | Clinical Summary ---
Author Organization [facility] [address] Address [address] [place] [address] Care Team Providers Care Interpreter Deaf Name Role Phone Linda Barber RN Unavailable Macrina Airam Nunez CASCARA BARK CUTTER Primary Care Provider [phone] Allergies Active Allergy Reactions Criticality Noted Date [...] -requesting imaging of CTA carotid performed at [facility] for evaluation. Primary hypertension 03/11/2023 [...] Department Care Team Description 05/15/2025 Anticoagulation Visit [facility] Cardiology [address] [facility] [place] [address] Dorcas Charles RN Atrial fibrillation, unspecified type (HCC) (Primary Dx) 05/07/2025 11:30 AM CDT Office Visit [facility] Cardiology at [address] [place] [address] Austen Lion MD Atrial fibrillation, unspecified type (HCC) (Primary Dx); VPC's (ventricular premature complexes) 05/07/2025 Results Follow-Up [facility] Cardiology [address] [place] [address] [place] [address] Senait Caldera NP Basic metabolic panel 05/07/2025 Anticoagulation Visit [facility] Cardiology [address] [place] [address] [place] [address] Dorcas Charles RN Atrial fibrillation, unspecified type (HCC) (Primary Dx) 04/27/2025 Telephone [facility] Cardiology [address] [place] [address] [place] [phone] Austen Lion MD 04/24/2025 1:30 PM CDT Procedure visit [facility] Cardiology at [address] [place] [address] Atrial fibrillation, unspecified type (HCC) 04/24/2025 1:00 PM CDT Ancillary Procedure [facility]iology at [address] [place] [address] Atrial fibrillation, unspecified type (HCC) 04/24/2025 Results Follow-Up [facility] Cardiology [address] [place] [address] [place] [address] Senait Caldera NP ECG 12 lead, Transthoracic Echo (TTE) Complete W Doppler/CF 04/24/2025 Telephone [facility] Cardiology [address] [place] [address] [place] [address] Senait Caldera NP 04/17/2025 Anticoagulation Visit [facility] Cardiology [address] [place] [address] [place] [address] Jo Chan RN Atrial fibrillation, unspecified type (HCC) (Primary Dx) 04/10/2025 Anticoagulation Visit [facility] Cardiology [address] [place] [address] [place] [address] Jo Chan RN Atrial fibrillation, unspecified type (HCC) (Primary Dx) 04/10/2025 Telephone [facility] Cardiology [address] [place] [address] [address] [address] Austen Lion MD 04/10/2025 Anticoagulation Visit [facility] Cardiology [address] [place] [address] [place] [address] Jo Chan RN Atrial fibrillation, unspecified type (HCC) (Primary Dx) 04/04/2025 Anticoagulation Visit [facility] Cardiology at [address] [place] [address] Sonal Morgan RN Atrial fibrillation, unspecified type (HCC) (Primary Dx) 03/30/2025 Telephone [facility] Cardiology [address] [place] [address] [place] [phone] Martha Del Angel MA 03/22/2025 10:30 AM CDT Office Visit [facility] Cardiology [address] [place] [address] [address] [place] [phone] Senait Caldera NP Atrial fibrillation, unspecified type (HCC) (Primary Dx); Left ventricular systolic dysfunction; Productive cough; DIONNE (obstructive sleep apnea) 03/22/2025 Telephone [facility] Cardiology [address] [place] [address] [address] [place] [address] Austen Lion MD from Last 3 [...] on file 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 Gender Identity Not on file Sexual [...] Comment: For additional information, please refer to http://education.[employer]/faq/GCY575 (This link is being provided for informational/ educational purposes only.) Blood 05/05/2025 10:2 6 AM CDT 05/05/2025 10:26 AM CDT Austen Lion MD LAB BLOOD ORDERABLES Fin al Result [facility] [address] [place] [address] * (ABNORMAL) Basic metabolic panel (05/05/2025 10:25 AM CDT) [facility] Glucose 107(H) 65 - 99 mg/dL [facility] [...] NP LAB BLOOD ORDERABLES Janet l Result [facility] [address] [place] [address] * ECG 12 lead (04/24/2025 1:36 PM CDT) Senait Caldera CASCARA BARK CUTTER ECG ORDERABLES Final Res ult * TRANSTHORACIC ECHO (TTE) COMPLETE W DOPPLER/CF WO CONTRAST (04/24/2025 1:27 PM CDT) [facility] Estimated EF 25-30 % CONS SCIMAGE EF Mod BP 34 % CONS SCIMAGE Anatomical Region Laterality Modality Ultrasound 04/24/2025 1:01 PM CDT Narrative 04/24/2025 5:17 PM CDT [facility]iology [address], [address], [place] [address] P:[phone] P:[phone] Echocardiographic Report Patient Name: RASHAAD COREAS P : 1950 Study Date: 04/24/2025 1:01:11 PM Gender: M Tongue Carrier: LUCIANO Location: [facility] Ref Provider: SENAIT CALDERA [...] FINDINGS: Interpretation Site: Exam was interpreted at [facility]. Left Ventricle: Mild concentric left ventricular hypertrophy. [...] Procedure Note Parveen Moreno MD - 04/24/2025 [facility] [address], [address], [place] [address] P:[phone] P:[phone] Echocardiographic Report Patient Name: RASHAAD COREAS P : 1950 Study Date: 04/24/2025 1:01:11 PM Gender: M Tongue Carrier: LUCIANO Location: [facility] Ref Provider: SENAIT CALDERA [...] FINDINGS: Interpretation Site: Exam was interpreted at [facility]. Left Ventricle: Mild concentric left ventricular hypertrophy. [...] Protime-INR (04/16/2025 1:41 PM CDT) INR 2.5(H) [facility] Renaldo Verma Comment: Reference Range 0.9-1.1 Moderate-intensity Warfarin Therapy 2.0-3.0 Higher-intensity Warfarin Therapy 3.0-4.0 PT 25.0(H) 9.0 - 11.5 sec [facility] Renaldo Verma Comment: For additional information, please refer to http://[employer]star.[employer]/faq/LJE042 (This link is being provided for informational/ educational purposes only.) Blood 04/16/2025 1:41 PM CDT 04/16/2025 1:41 PM CDT Narrative [facility] - 04/17/2025 1:37 AM CDT FASTING:NO FASTING: NO Austen Lion MD LAB BLOOD ORDERABLES Fin al Result Performing Organization Address [facility] de Phone Number [facility] [address] [place] [address] * (ABNORMAL) Protime-INR (04/09/2025 2:20 PM CDT) INR 1.6(H) [email or web address] Comment: Reference Range 0.9-1.1 Moderate-intensity Warfarin Therapy 2.0-3.0 Higher-intensity Warfarin Therapy 3.0-4.0 PT 17.1(H) 9.0 - 11.5 sec [email or web address] Comment: For additional information, please refer to http://Tipstar.[employer]/faq/ABR342 (This link is being provided for informational/ educational purposes only.) Blood 04/09/2025 2:20 PM CDT 04/09/2025 2:20 PM CDT Austen Lion MD LAB BLOOD ORDERABLES Fin al Result Performing Organization Address [facility] de Phone Number [facility] [address] [place] [address] * ECG 12 lead (03/22/2025 11:40 AM CDT) 03/22/2025 11:4 0 AM CDT Senait Caldera CASCARA BARK CUTTER ECG ORDERABLES Edited Re sult - Final from Last 3 Months Insurance [employer] MEDICARE MEDICARE [employer] JIMMIE KOVACS [id number] MEDICARE [employer] Care Teams Interpreter Deaf Relationship Specialty Start Date End Date Airam Serrano, CASCARA BARK CUTTER [address] [place] [address] PCP - General Family Medicine 03/22/25 Linda Barber, RN Registered Nurse Pulmonary Disease 05/05/23
--- OUTSIDE RECORDS SUMMARY | 2025-05-17 14:20 | XMS_ITS | Referral Summary ---
Author Organization [place] [address] [address] [place] [address] Care Team Providers Care National Facilities Manager Name Role Phone Linda Barber RN Unavailable Macrina Airam Nunez [facility] Primary Care Provider [phone] Encounters Date Type Department Care Team Description 05/15/2025 Anticoagulation Visit [facility] Cardiology [address] [place] [address] [address] [place] [address] Dorcas Charles RN Atrial fibrillation, unspecified type (HCC) (Primary Dx) 05/07/2025 Results Follow-Up [facility] [address] [place] [address] [address] [place] [address] Senait Caldera NP Basic metabolic panel 05/07/2025 Anticoagulation Visit [facility] [address] [place] [address] [address] [place] [address] Dorcas Charles RN Atrial fibrillation, unspecified type (HCC) (Primary Dx) 05/07/2025 11:30 AM CDT Office Visit [facility] Cardiology at [address] [place] [address] Austen Lion MD Atrial fibrillation, unspecified type (HCC) (Primary Dx); VPC's (ventricular premature complexes) 04/27/2025 Telephone [facility] [address] [place] [address] [address] [place] [address] Austen Lion MD 04/24/2025 Results Follow-Up [facility] [address] [place] [address] [place] [address] Senait Caldera NP ECG 12 lead, Transthoracic Echo (TTE) Complete W Doppler/CF 04/24/2025 Telephone [facility] [address] [place] [address] [place] [address] Senait Caldera NP 04/24/2025 1:30 PM CDT Procedure visit [facility] at [address] [place] [address] Atrial fibrillation, unspecified type (HCC) 04/24/2025 1:00 PM CDT Ancillary Procedure [facility] at [address] [place] [address] Atrial fibrillation, unspecified type (HCC) 04/17/2025 Anticoagulation Visit [facility] [address] [place] [address] [place] [address] Jo Chan RN Atrial fibrillation, unspecified type (HCC) (Primary Dx) 04/10/2025 Anticoagulation Visit [facility] [address] [place] [address] [place] [address] Jo Chan RN Atrial fibrillation, unspecified type (HCC) (Primary Dx) 04/10/2025 Telephone [facility] [address] [place] [address] Austen Lion MD 04/10/2025 Anticoagulation Visit [facility] [address] [place] [address] [place] [address] Jo Chan RN Atrial fibrillation, unspecified type (HCC) (Primary Dx) 04/04/2025 Anticoagulation Visit [facility] at [address] [place] [address] Sonal Morgan RN Atrial fibrillation, unspecified type (HCC) (Primary Dx) 03/30/2025 Telephone [facility] [address] [facility] [address] [place] [address] Martha Del Angel MA 03/22/2025 Telephone [facility] [address] [place] [address] Austen Lion MD 03/22/2025 10:30 AM CDT Office Visit [facility] [address] [facility] [address] [place] [address] Senait Caldera NP Atrial fibrillation, unspecified [...] -requesting imaging of CTA carotid performed at [facility] for evaluation. 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 Gender Identity Not on file Sexual Orientation [...] Protime-INR (05/05/2025 10:26 AM CDT) INR 3.7(H) [facility] Verma Comment: Reference Range 0.9-1.1 Moderate-intensity Warfarin Therapy 2.0-3.0 Higher-intensity Warfarin Therapy 3.0-4.0 PT 36.1(H) 9.0 - 11.5 sec [facility]S jacoby Verma Comment: For additional information, please refer to http://education.tidy/faq/USC784 (This link is being provided for informational/ educational purposes only.) Blood 05/05/2025 10:2 6 AM CDT 05/05/2025 10:26 AM CDT Austen Lion MD LAB BLOOD ORDERABLES Fin al Result Performing Organization Address City/[facility]/ZIP Co de Phone Number [facility] [address] [place] [address] * (ABNORMAL) Basic metabolic panel (05/05/2025 10:25 [...] CDT 05/05/2025 10:25 AM CDT Senait Caldera SUPERINTENDENT INSTITUTION LAB BLOOD ORDERABLES Janet l Result [facility] [address] [facility] [place] [address] * ECG 12 lead (04/24/2025 1:36 PM CDT) Senait Caldera SUPERINTENDENT INSTITUTION ECG ORDERABLES Final Res ult * TRANSTHORACIC ECHO (TTE) COMPLETE W DOPPLER/CF WO CONTRAST (04/24/2025 1:27 PM CDT) Estimated EF 25-30 % CONS SCIMAGE EF Mod BP 34 % CONS SCIMAGE Anatomical Region Laterality Modality Ultrasound 04/24/2025 1:01 PM CDT Narrative 04/24/2025 5:17 PM CDT [facility] [address] , [address], [place] [address] P:[phone] P:[phone] Echocardiographic Report Patient Name: RASHAAD COREAS P : 1950 Study Date: 04/24/2025 1:01:11 PM Gender: M Seconds Grader: LUCIANO Location: [facility] Ref Provider: SENAIT CALDERA [...] Procedure Note Parveen Moreno MD - 04/24/2025 [facility] [address], [address], [place] [address] P:[phone] P:[phone] Echocardiographic Report Patient Name: RASHAAD COREAS P : 1950 Study Date: 04/24/2025 1:01:11 PM Gender: M Seconds Grader: LUCIANO Location: [facility] Ref Provider: SENAIT CALDERA [...] Protime-INR (04/16/2025 1:41 PM CDT) INR 2.5(H) exoro systemS jacoby Verma Comment: Reference Range 0.9-1.1 Moderate-intensity Warfarin Therapy 2.0-3.0 Higher-intensity Warfarin Therapy 3.0-4.0 PT 25.0(H) 9.0 - 11.5 sec exoro systemJovan Verma Comment: For additional information, please refer to http://education.tidy/faq/BVT962 (This link is being provided for informational/ educational purposes only.) Blood 04/16/2025 1:41 PM CDT 04/16/2025 1:41 PM CDT Narrative [facility] - 04/17/2025 1:37 AM CDT FASTING:NO FASTING: NO Austen Lion MD LAB BLOOD ORDERABLES Fin al Result [facility] [address] [place] [address] * (ABNORMAL) Protime-INR (04/09/2025 2:20 PM CDT) INR 1.6(H) exoro systemS jacoby Verma Comment: Reference Range 0.9-1.1 Moderate-intensity Warfarin Therapy 2.0-3.0 Higher-intensity Warfarin Therapy 3.0-4.0 PT 17.1(H) 9.0 - 11.5 sec Heyy-Jovan Verma Comment: For additional information, please refer to http://education.tidy/faq/NYX463 (This link is being provided for informational/ educational purposes only.) Blood 04/09/2025 2:20 PM CDT 04/09/2025 2:20 PM CDT Austen Lion MD LAB BLOOD ORDERABLES Fin al Result [facility] [address] [place] [address] * ECG 12 lead (03/22/2025 11:40 AM CDT) 03/22/2025 11:4 0 AM CDT Senait Caldera SUPERINTENDENT INSTITUTION ECG ORDERABLES Edited Re sult - Final from Last [address] [facility] MEDICARE [facility] Address: [address] [place] [phone] MEDICARE [employer] [place] MEDICARE [place] Care Teams National Facilities Manager Relationship Specialty Start Date End Date Airam Serrano, MORRIS [address] [place] [id number] PCP - General Family Medicine 03/22/25 Linda Barber, RN Registered Nurse Pulmonary Disease 05/05/23
--- OUTSIDE RECORDS SUMMARY | 2025-05-17 14:20 | XMS_ITS | Continuity of Care Document ---
Author Organization [facility] Address [address] [facility] [address] [place] [address] Phone Care Team Providers Care Heatset Winder Operator Name Role Phone Jaylan WILBURN, Harshal Unavailable [...] Providers Copied on Encounter [facility], [address], [id number], [place] tel:[phone] [facility] No Information Sep-0 4 Franga Harshal. 121 [facility], [address] [place] [address], [address], [place]. tel:[phone] [facility], [address] [facility] [address], [place], [address], [place] tel:[phone] [facility] Sep-0 4 Jatinder Tavares. 121 [facility], [address], [id number] , [place]. tel:[phone] Referring Provider: Delon Galloway, [address] [facility], [address], [place], [address]. tel:[phone] [facility], [address] [facility] [address] [place] [address], [id number], [place] tel:[phone] [facility] Sep-0 4 Franga Harshal. 121 [facility], [address], [place], [address], [place]. tel:[phone] Referring Provider: Delon Galloway, [address] [facility], [address], [place], [address]. tel:[phone] [facility], [address] [facility] [address] [place] [address], [id number], [place] tel:[phone] [facility] Sep-0 4 Franga Harshal. [address] [facility], [address], [place], [address], [place]. tel:[phone] Referring Provider: Delon Galloway, [address] [facility], [address], [place], [address]. tel:[phone] [facility], [address] [place] [address], [id number], [place] tel:[phone] [place] [address] Compression of VeinOther complications due to renal dialysis device, implant, and graftEnd stage renal disease Sep-0 9 [address] [place], [place], [id number] , [place]. tel:[phone] Referring Provider: Cayetano Mcnulty, [address] [employer] [address], [place], [address]. tel:[phone] [facility], [address] [place] [address], [id number], [place] tel:[phone] [place] [address] No Information 9 Razdan [address] [facility] [place], [place], [id number] , [place]. tel:[phone] Referring Provider: Cayetano Mcnulty, [address], [place], [address]. tel:[phone] [facility], [address] [place] [address], [id number], [place] tel:[phone] [place] [address] No Information 9 [address] [place] [address], [id number] , [place]. [phone] OFFICE/OUTPA TIENT VISIT, EST [facility], [address] [place] [address], [id number], [place] tel:[phone] [place] [address] End stage renal disease Apr-2 9 Bhaskar León. [address] [facility], [address], [place], [address], [place]. tel:[phone] Referring Provider: Cayetano Mcnulty, [address] [place] [address], [place], [address]. tel:[phone] OFFICE/OUTPA TIENT VISIT, EST [facility], [address] [place] [address], [id number], [place] tel:[phone] [facility] End stage renal diseaseEnd stage renal disease 8 [address] [place] [address], [id number] , [place]. tel:[phone] Referring Provider: Cayetano Mcnulty, [address] [address], [place], [address]. tel:[phone] [facility], [address] [place] [address], [id number], [place] tel:[phone] [facility] Compression of VeinOther complications due to renal dialysis device, implant, and graftEnd stage renal disease [facility] Dl. [address] [place] [address], [id number] , [place]. tel:[phone] Referring Provider: Cayetano Mcnulty, [address] [address], [place], [address]. tel:[phone] [facility], [address] [place] [address], [id number], [place] tel:[phone] [facility] Compression of VeinOther complications due to renal dialysis device, implant, and graftEnd stage renal disease 8 Razdan [address] [place] [address], [id number] , [place]. tel:[phone] Referring Provider: Cayetano Mcnulty, [address] [address], [place], [address]. tel:[phone] [facility], [address] [place] [address], [id number], [place] tel:[phone] [facility] Other complications due to renal dialysis device, implant, and graftEnd stage renal disease 8 [address] [place], [place], [id number] , [place]. tel:[phone] Referring Provider: Cayetano Mcnulty, [address] [address], [place], [address]. tel:[phone] [facility], [address] [place] [address], [id number], tel:[phone] [facility] Compression of VeinOther complications due to renal dialysis device, implant, and graftEnd stage renal disease 7 Rosas Ariane. [address] [address], [place], [place], [id number] , [place]. tel:[phone] Referring Provider: Cayetano Mcnulty, [address] [address], [place], [address]. tel:[phone] [facility], [address] [place] [address], [id number], [place] tel:[phone] [facility] Compression of VeinOther complications due to renal dialysis device, implant, and graftEnd stage renal disease 7 Rosas Ariane. [address] [facility] , [facility] [address], [id number] , [place]. tel:[phone] Referring Provider: Cayetano Mcnulty, [address] [address], [place], [address]. tel:[phone] As per patient privacy policy some of the clinical information may not be visible. Family History Family Member Type Diagnosis Age At Onset Father Problem (finding) Diabetes mellitus Problem (finding) No family history of Hu emilioington's chorea Payers Payer name Insurance type Covered constitution party ID Authoriza tion(s) Medicare [place] MB [id number] [facility] CI [id number] Social History Type Description Quantity Date Captured Comments Sex Male Smoking Status No Information Gender Identity Male Chief Complaint And Reason For Visit No Information Reason For Referral Reason For Referral No Information Plan Of Treatment Date Type Action Status Future Order: Radiology Order Up per Body Flouroscopy ([id number]), Ordered on: Ordered Future Order: Radiology Order Up per Body Flouroscopy ([id number]), Ordered on: Ordered Future Order: Radiology Order Up per Body Flouroscopy ([id number]), Ordered on: Ordered Future Order: Radiology Order Up per Body Flouroscopy ([id number]), Ordered on: Ordered Future Order: Radiology Order Up per Body Flouroscopy ([id number]), Ordered on: Ordered Future Order: Radiology Order Up per Body Flouroscopy ([id number]), Ordered on: Ordered Future Order: Radiology Order Up per Body Fluoroscopy ([id number]), Ordered on: Ordered Future Order: Radiology Order Up per Body Fluoroscopy ([id number]), Ordered on: Ordered History Of Present Illness Encounter Date Complaint History Of Prese nt Illness No Information Functional Status Date Functional Assessmen t No Information Instructions Date Instruction Additional Infor mation No Information Assessments Type Assessment Date No Information Patient Care Teams Name Effective Dates (start - stop) Status Members No Information
--- OUTSIDE RECORDS SUMMARY | 2025-05-17 14:20 | XMS_ITS | Encounter Summary ---
Author Organization [facility] Address [address] [place] [address] Care Team Providers Care Patient Escort Name Role Phone Bennie Ramos MD Primary Care Provider [phone] Linda Barber RN Unavailable Macrina Airam Nunez NP Primary Care Provider [phone] Encounter Details Date Type Department Care Team (Late st Contact Info) Description 10/03/2024 Orders Only [facility] Information Management [address] [place] [id number] Scanning, Provider Social History Tobacco Use Types Packs/Day Years Used Date Smoking Tobacco: Former Cigarettes Q uit: 06/17/1991 Smokeless Tobacco: Never Alcohol Use Standard Drinks/Week Comments No 0 (1 standard drink = 0.6 oz pur e alcohol) Sex and Gender Information Value Date Recorded Sex Assigned at Not on file 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
--- NOTE | 2025-05-17 15:45 | ED_ITS ---
HPI - General Adult General Chief complaint: Fall Stated complaint: fall, hit head takes thinners no LOC Time Seen by Provider: 05/17/25 13:59 History of Present Illness HPI narrative: Patient is 74-year-old gentleman presents emergency department chief complaint of injury patient states that he slipped on some mud in the garage reports he struck his head and reports that he has pain on the right side of his neck patient states that he is on Coumadin and reports that he was concerned since he is on anticoagulants. Related Data Home Medications ?Medication ?Instructions ?Recorded ?Confirmed ?Last Taken ?Type spironolactone 25 mg tablet 25 mg PO DAILY 02/03/23 05/14/25 05/14/25 History warfarin 6 mg tablet 6 mg PO DAILY 05/14/25 05/14/25 05/14/25 History Allergies Allergy/AdvReac Type Severity Reaction Status Date / Time Sulfa (Sulfonamide Allergy Unknown Unknown Verified 05/17/25 14:07 Antibiotics) codeine AdvReac Intermediate Gastrointestinal Verified 05/17/25 14:07 Upset Review of Systems Review of Systems: A 10 system review of systems was completed on the patient and is negative except for what is stated in the HPI. Nursing and ancillary documentation was reviewed. [facility] Past Medical History Medical History Peripheral neuropathy Hyperlipidemia Obstructive sleep apnea TIA (transient ischemic attack) Osteoarthritis of right knee COPD (chronic obstructive pulmonary disease) Diabetes Sleep apnea Hypertension Surgical History Surgical History H/O total cystectomy Hx of tonsillectomy History of ankle surgery (~1979) Hx of total knee replacement (~2000) H/O knee surgery (~2002) History of ear surgery Family History Family History Mother Diabetes mellitus Family history of coronary artery disease Family history of malignant neoplasm of breast in first degree relative Family history of congestive heart failure Father Family history of lung cancer, Onset Age: 64 Social History Social History Social History: Caffeine-soda Smoking packs per day: 3 Smoking cigarettes per day: 60.0 Years smoked: 20 Smoking pack-years: 60.00 Smoking status: Former smoker Tobacco type: cigarettes Smoking end date: 11/01/87 Additional smoking assessment comments: DID NOT SMOKE 3 PKS THE ENTIRE TIME Alcohol intake: never Substance use: never Substance use type: does not use Do You Feel Safe in your Home?: Yes Lack of Transportation: No Lack of Food: Never True Current Housing: I Have Housing Concerned About Future Housing: No Difficulty Paying Gas/Electric Bills: No Difficulty Paying for Meds: No Currently Unemployed: No Education: Bachelor's Degree Difficulty w/ Childcare or Family Care: No Living arrangements: with family Spiritual care concerns: No Exam Narrative: GENERAL: Well-appearing, well-nourished, and in no acute distress. HEAD: Normocephalic, atraumatic. EYES: PERRLA and EOMI. ENT: Nares clear, no rhinorrhea or epistaxis. Mucous membranes moist. NECK: Supple. CHEST: Clear to auscultation. No respiratory distress. HEART: Regular rate and rhythm. No murmur heard. Normal peripheral pulses. ABDOMEN: Soft, nontender, nondistended, normal active bowel sounds. EXTREMITIES: Normal range of motion. No edema. SKIN: Warm, dry, no rash. NEURO: No focal deficits. Alert and oriented x3. PSYCH: Normal mood and affect. Course Vital Signs Vital signs: Vital Signs Temperature 36.2 C L 05/17/25 14:07 Pulse Rate 54 L 05/17/25 14:07 Respiratory Rate 20 05/17/25 14:07 Blood Pressure 116/70 05/17/25 14:07 Pulse Oximetry 93 05/17/25 14:07 Oxygen Delivery Room Air 05/17/25 14:07 Temperature 36.2 C L 05/17/25 14:07 Pulse Rate 54 L 05/17/25 14:07 Respiratory Rate 20 05/17/25 14:07 Blood Pressure 116/70 05/17/25 14:07 Pulse Oximetry 93 05/17/25 14:07 Oxygen Delivery Room Air 05/17/25 14:07 Medical Decision Making [facility] Narrative Medical decision making narrative: Differential diagnosis includes intracranial hemorrhage, cervical spine fracture CT head showed no evidence of acute intracranial pathology CT C-spine showed no evidence of C-spine fracture Vital Signs Vital Signs: Vital Signs Temperature 36.2 C L 05/17/25 14:07 Pulse Rate 54 L 05/17/25 14:07 Respiratory Rate 20 05/17/25 14:07 Blood Pressure 116/70 05/17/25 14:07 Pulse Oximetry 93 05/17/25 14:07 Oxygen Delivery Room Air 05/17/25 14:07 Temperature 36.2 C L 05/17/25 14:07 Pulse Rate 54 L 05/17/25 14:07 Respiratory Rate 20 05/17/25 14:07 Blood Pressure 116/70 05/17/25 14:07 Pulse Oximetry 93 05/17/25 14:07 Oxygen Delivery Room Air 05/17/25 14:07 Discharge Plan Discharge Clinical Impression: Head injury, Cervical strain Patient Disposition: Home Condition: Stable Instructions: Antibiotic Form, Cervical Strain (ED), Head Injury (ED) Patient Language: French Prescriptions: No Action spironolactone 25 mg tablet 25 mg PO DAILY warfarin 6 mg tablet 6 mg PO DAILY metoprolol succinate 25 mg tablet extended release 24 hr See Rx Instructions .ROUTE .COMPLEX Qty: 90 3RF Dose Instruction: TAKE 1 TABLET BY MOUTH EVERY DAY Rx Instructions: TAKE 1 TABLET BY MOUTH EVERY DAY trazodone 150 mg tablet See Rx Instructions .ROUTE .COMPLEX Qty: 90 2RF Dose Instruction: 150 MG ORALLY EVERY DAY AT BEDTIME NEEDED FOR INSOMNIA DUR FOR APPOINTMENT Rx Instructions: 150 MG ORALLY EVERY DAY AT BEDTIME NEEDED FOR INSOMNIA DUR FOR APPOINTMENT atorvastatin 40 mg tablet 40 mg PO DAILY Qty: 90 3RF tamsulosin 0.4 mg capsule See Rx Instructions .ROUTE .COMPLEX Qty: 90 1RF Dose Instruction: 0.4 MG ORALLY EVERY DAY AT BEDTIME Rx Instructions: 0.4 MG ORALLY EVERY DAY AT BEDTIME omeprazole 40 mg capsule,delayed release(DR/EC) 40 mg PO DAILY Qty: 90 1RF furosemide 20 mg tablet 20 mg PO QAM Qty: 90 2RF irbesartan 300 mg tablet 300 mg PO DAILY Qty: 90 1RF Rx Instructions: TAKE ONE TABLET BY MOUTH ONCE DAILY Follow-up/Referrals: Airam Serrano, ORDER PROCESSING MANAGER-C [Primary Care Provider] - Time of Disposition: 16:19
[2025-05-17 16:30] VITALS: BP 133/70; PULSE 55; RESP 20; TEMP 36.3; O2SAT 98
== END 2025-05-17 16:31 | disposition home or self-care (01) ==
PROVIDERS: Emergency Provider Emergency Medicine; PCP Nurse Practitioner Family
DX: S09.90XA Unspecified injury of head, initial encounter (principal); S16.1XXA Strain of muscle, fascia and tendon at neck level, initial encounter; I10 Essential (primary) hypertension; J44.9 Chronic obstructive pulmonary disease, unspecified; E78.5 Hyperlipidemia, unspecified; E11.42 Type 2 diabetes mellitus with diabetic polyneuropathy; M17.11 Unilateral primary osteoarthritis, right knee; G47.33 Obstructive sleep apnea (adult) (pediatric); Z96.659 Presence of unspecified artificial knee joint; Z86.73 Personal history of transient ischemic attack (TIA), and cerebral infarction without residual deficits; Z87.891 Personal history of nicotine dependence; Z79.01 Long term (current) use of anticoagulants; Z79.899 Other long term (current) drug therapy; W01.0XXA Fall on same level from slipping, tripping and stumbling without subsequent striking against object, initial encounter
CPT/HCPCS: 70450; 72125; 99284